=== PATIENT | female | born 1955 | race American Indian/Alaskan Native ===

== ENCOUNTER 2021-03-19 10:11 | Inpatient (IN) ==
--- NOTE | 2021-03-19 11:47 | Emergency Department Note ---
SOB HPI General Chief Complaint: Shortness of Breath/Dyspnea Stated Complaint: SOB Time Seen by Provider: 03/19/21 11:22 Source: patient, EMS, RN notes reviewed and old records reviewed Mode of arrival: EMS Limitations: no limitations History of Present Illness HPI Narrative: Narrative: MD Complaint: shortness of breath Onset (ago): month(s) (8) Context: occurred during exertion Severity: moderate Consistency/Duration: intermittent Improves with: rest and upright position Worsens with: lying flat, exertion, movement and inspiration Associated symptoms: Reports fever, cough, wheezing, sputum production, orthopnea, lower extremity pain, parasthesias and palpitations; Denies chest pain, pain with inspiration, polyuria, polydipsia, carpopedal spasm, hemoptysis, diaphoresis, nausea/vomiting, syncope, abdominal pain and sense of impending doom Treatment prior to arrival: none Related Data Home Medications Medication Instructions Recorded Confirmed No Known Home Meds 03/19/21 03/19/21 Allergies Allergy/AdvReac Type Severity Reaction Status Date / Time No Known Drug Allergies Allergy Unverified 03/19/21 15:58 Review of Systems ROS ROS Narrative: Narrative: All systems ED: reviewed and negative except as stated. PFSH Narrative Patient History Narrative: Narrative: Medical/Surgical/Family History All Active Problems (Updated 03/19/21 @ 17:17 by Chapincito Hernández MD) Medical non-compliance (Acute) Essential (primary) hypertension (Acute) T2DM (type 2 diabetes mellitus) (Acute) Morbid obesity (Acute) On home oxygen therapy (Acute) Acute and chronic respiratory failure with hypoxia (Acute) CHF exacerbation (Acute) Social History Smoking Status: Never smoker Exam Narrative Narrative: Narrative: General Limitations: no limitations General appearance: Present alert, in no apparent distress and obese Head Head: Present atraumatic, normocephalic and normal inspection Eye Eye: Present normal appearance and PERRL ENT ENT: Present normal exam and normal oropharynx Neck Neck: Present normal inspection and full ROM Chest Chest: Present normal inspection and symmetric chest wall rise Respiratory Respiratory: Present wheezes and decreased breath sounds; Absent respiratory distress Cardiovascular Cardiovascular: Present regular rate and normal rhythm; Absent systolic murmur, rubs and gallop Adbominal Abdominal: Present soft Extremities Extremities: Present full ROM, tenderness, pedal edema, pretibial edema, joint swelling and calf tenderness; Absent normal inspection and normal capillary refill Back Back: Present normal inspection, full ROM and tenderness Neurological Neurological: Present alert and oriented X3 Psychiatric Psychiatric: Present normal affect and depressed Skin Skin: Present cyanosis, erythema and pallor Course Vital Signs Vital signs: Vital Signs Temperature 97.0 F 03/19/21 10:22 Pulse Rate 96 H 03/19/21 10:22 Respiratory Rate 18 03/19/21 10:22 Blood Pressure 143/74 03/19/21 10:22 Pulse Oximetry (%) 95 03/19/21 10:22 Temperature 97.0 F 03/19/21 10:22 Pulse Rate 102 H 03/19/21 16:46 Respiratory Rate 29 H 03/19/21 16:15 Blood Pressure 115/66 03/19/21 16:46 Pulse Oximetry (%) 92 03/19/21 16:46 MDM MDM Narrative Medical decision making narrative: Narrative: 65-year-old female with congestive heart failure on chest x-ray and BNP. Patient received IV Lasix. And is improving but I believe will require more Lasix therapy to get her to optimal pulmonary and cardiac capacity requested and admission with the hospitalist who graciously agreed to an observation admission diagnosis congestive heart failure. Differential Diagnosis Differential Diagnosis: CHF, PTX, pneumonia, ACS, PE Medical Records Medical records reviewed: Yes I reviewed the patient's medical records. Lab Data Lab results reviewed: Yes I reviewed the patient's lab results. Result diagrams: 03/19/21 12:20 03/19/21 12:20 Labs: Lab Results 03/19/21 03/19/21 03/19/21 Range/Units 12:20 12:20 12:20 WBC 11.8 H (4.5-11.0) K/mcL RBC 4.35 (3.59-5.38) M/mcL Hgb 12.0 (11.2-15.7) g/dL Hct 42.8 (34.1-44.9) % MCV 98.4 (80.0-100.0) fL MCH 27.6 (26.0-34.0) pg MCHC 28.0 L (31.0-36.0) g/dL RDW 18.2 H (11.5-14.5) % Plt Count 251 (140-440) K/mcL MPV 9.9 (7.4-10.4) fL Neut % (Auto) 84.8 H (38.0-78.0) % Lymph % (Auto) 7.6 L (15.5-49.0) % [place] % (Auto) 6.9 (1.0-12.0) % Eos % (Auto) 0.3 (0.0-7.0) % Baso % (Auto) 0.4 (0.0-2.0) % Lymph # (Auto) 0.90 L (1.50-4.80) K/mcL [place] # (Auto) 0.82 (0.10-0.90) K/mcL Eos # (Auto) 0.03 (0.00-0.70) K/mcL Baso # (Auto) 0.05 (0.00-0.30) K/mcL Absolute Neutrophils 10.01 H (1.80-8.00) K/mcL D-Dimer > 20.0 H (0.27-0.5) ug/mL VBG Lactic Acid (0.5-2.0) mmol/L Sodium TNP Potassium TNP Chloride TNP Carbon Dioxide TNP Anion Gap TNP BUN TNP Creatinine TNP GFR Calculation TNP Glucose TNP Calcium TNP Total Bilirubin TNP AST TNP ALT TNP Alkaline Phosphatase TNP Troponin T (<0.03) ng/mL NT-Pro-B Natriuret Pep (<125.0) pg/mL Total Protein TNP Albumin TNP Globulin TNP Albumin/Globulin Ratio TNP Urine Color Urine Appearance (Clear) Urine pH (5.0-9.0) Ur Specific [place] (1.000-1.035) Urine Protein (Negative) mg/dL Urine Glucose (UA) (Negative) mg/dL Urine Ketones (Negative) mg/dL Urine Occult Blood (Negative) mg/dL Urine Nitrate (Negative) Urine Bilirubin (Negative) mg/dL Urine Urobilinogen mg/dL Ur Leukocyte Esterase (Negative) /ug Ur Culture Indicated? 03/19/21 03/19/21 03/19/21 Range/Units 12:20 12:20 12:20 WBC (4.5-11.0) K/mcL RBC (3.59-5.38) M/mcL Hgb (11.2-15.7) g/dL Hct (34.1-44.9) % MCV (80.0-100.0) fL MCH (26.0-34.0) pg MCHC (31.0-36.0) g/dL RDW (11.5-14.5) % Plt Count (140-440) K/mcL MPV (7.4-10.4) fL Neut % (Auto) (38.0-78.0) % Lymph % (Auto) (15.5-49.0) % [place] % (Auto) (1.0-12.0) % Eos % (Auto) (0.0-7.0) % Baso % (Auto) (0.0-2.0) % Lymph # (Auto) (1.50-4.80) K/mcL [place] # (Auto) (0.10-0.90) K/mcL Eos # (Auto) (0.00-0.70) K/mcL Baso # (Auto) (0.00-0.30) K/mcL Absolute Neutrophils (1.80-8.00) K/mcL D-Dimer (0.27-0.5) ug/mL VBG Lactic Acid 1.0 (0.5-2.0) mmol/L Sodium 140 Potassium 4.0 Chloride 96 Carbon Dioxide 33 H Anion Gap 11.0 BUN 11 Creatinine 0.6 GFR Calculation 95 Glucose 112 H Calcium 9.2 Total Bilirubin 1.2 H AST 18 ALT 11 Alkaline Phosphatase 98 Troponin T 0.02 (<0.03) ng/mL NT-Pro-B Natriuret Pep 1468.0 H (<125.0) pg/mL Total Protein 8.3 Albumin 3.2 Globulin 5.1 H Albumin/Globulin Ratio 0.6 L Urine Color Urine Appearance (Clear) Urine pH (5.0-9.0) Ur Specific [place] (1.000-1.035) Urine Protein (Negative) mg/dL Urine Glucose (UA) (Negative) mg/dL Urine Ketones (Negative) mg/dL Urine Occult Blood (Negative) mg/dL Urine Nitrate (Negative) Urine Bilirubin (Negative) mg/dL Urine Urobilinogen mg/dL Ur Leukocyte Esterase (Negative) /ug Ur Culture Indicated? 03/19/21 Range/Units 13:53 WBC (4.5-11.0) K/mcL RBC (3.59-5.38) M/mcL Hgb (11.2-15.7) g/dL Hct (34.1-44.9) % MCV (80.0-100.0) fL MCH (26.0-34.0) pg MCHC (31.0-36.0) g/dL RDW (11.5-14.5) % Plt Count (140-440) K/mcL MPV (7.4-10.4) fL Neut % (Auto) (38.0-78.0) % Lymph % (Auto) (15.5-49.0) % [place] % (Auto) (1.0-12.0) % Eos % (Auto) (0.0-7.0) % Baso % (Auto) (0.0-2.0) % Lymph # (Auto) (1.50-4.80) K/mcL [place] # (Auto) (0.10-0.90) K/mcL Eos # (Auto) (0.00-0.70) K/mcL Baso # (Auto) (0.00-0.30) K/mcL Absolute Neutrophils (1.80-8.00) K/mcL D-Dimer (0.27-0.5) ug/mL VBG Lactic Acid (0.5-2.0) mmol/L Sodium Potassium Chloride Carbon Dioxide Anion Gap BUN Creatinine GFR Calculation Glucose Calcium Total Bilirubin AST ALT Alkaline Phosphatase Troponin T (<0.03) ng/mL NT-Pro-B Natriuret Pep (<125.0) pg/mL Total Protein Albumin Globulin Albumin/Globulin Ratio Urine Color Kristine Urine Appearance Clear (Clear) Urine pH 6.0 (5.0-9.0) Ur Specific [place] 1.017 (1.000-1.035) Urine Protein Negative (Negative) mg/dL Urine Glucose (UA) Negative (Negative) mg/dL Urine Ketones 5 A (Negative) mg/dL Urine Occult Blood Negative (Negative) mg/dL Urine Nitrate Negative (Negative) Urine Bilirubin Negative (Negative) mg/dL Urine Urobilinogen 4.0 A mg/dL Ur Leukocyte Esterase Negative (Negative) /ug Ur Culture Indicated? No ED POC Tests ED POC Tests: SABAS - SARS Antigen Negative Radiology Data Radiology results reviewed: Yes I reviewed the patient's radiology results. Radiology results narrative: Congestive heart failure on chest x-ray EKG Data EKG #1: EKG attestation: Yes I reviewed and interpreted this EKG. EKG shows normal: sinus rhythm Rate: tachycardia (106) Rhythm: PVC's Glide/QRS: right axis deviation Interpretation: nonspecific ST-T wave changes Pulse Oximetry Data Pulse Ox %: 88 Interpretation: 80% is low on room Discharge Plan Patient/Caregiver Discharge Instructions Pt seen by FLY WORKER/PA only: No Clinical Impression: CHF exacerbation Qualifiers: Heart failure type: unspecified Qualified Code(s): I50.9 - Heart failure, unsp ecified Patient Disposition: Xfer As Inpt ([facility])
--- NOTE | 2021-03-19 11:47 | XRay Report ---
CLINICAL INFORMATION: shortness of breath x3 months COMPARISON: None. FINDINGS: The heart is markedly enlarged. There is mild mediastinal widening and pulmonary vessels are moderately distended with moderate peribronchovascular edema throughout both lungs. It is most prominent in the perihilar regions. No definite infiltrate. Small bilateral pleural effusions noted. IMPRESSION: Severe CHF Interpreted and Authenticated by: Rishi Lane 03/19/21
[2021-03-19] MEDS ORDERED: FUROSEMIDE 100 MG/10 ML VIAL IV ONE (12:54)
--- NOTE | 2021-03-19 13:09 | EKG ---
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 Measurements Intervals [place] Rate: 106 P: 53 WI: 180 QRS: 259 QRSD: 68 T: 66 QT: 328 QTc: 436 Interpretive Statements SINUS TACHYCARDIA VENTRICULAR PREMATURE COMPLEX POSSIBLE INFERIOR INFARCT, OLD CONSIDER ANTEROSEPTAL INFARCT Electronically Signed On 03-19-2021 13:09:50 PDT by Rishi Nunez M.D. /[email or web address]/[email or web address]/[id number]
[2021-03-19 13:10] LABS: Basophils # (Auto) 0.05 K/mcL (0.00-0.30); Basophils % (Auto) 0.4 % (0.0-2.0); Eosinophils # (Auto) 0.03 K/mcL (0.00-0.70); Eosinophils % (Auto) 0.3 % (0.0-7.0); Hematocrit 42.8 % (34.1-44.9); Lymphocytes % (Auto) 7.6 % (15.5-49.0); Mean Cell Volume 98.4 fL (80.0-100.0); Mean Platelet Volume 9.9 fL (7.4-10.4); Monocytes # (Auto) 0.82 K/mcL (0.10-0.90); Monocytes % (Auto) 6.9 % (1.0-12.0); Neutrophils % (Auto) 84.8 % (38.0-78.0); Platelet Count 251 K/mcL (140-440); RBC 4.35 M/mcL (3.59-5.38); Red Cell Distribution Width 18.2 % (11.5-14.5); WBC 11.8 K/mcL (4.5-11.0)
[2021-03-19 13:33] LABS: ALT/SGPT 11 U/L (<40); AST/SGOT 18 U/L (<32); Albumin 3.2 gm/dL (3.2-5.2); Albumin/Globulin Ratio 0.6 (1.0-2.3); Alkaline Phosphatase 98 U/L (39-117); Bilirubin,Total 1.2 mg/dL (0.1-1.0); Blood Urea Nitrogen 11 mg/dL (8-23); Calcium 9.2 mg/dL (8.6-10.4); Carbon Dioxide 33 mmol/L (22-30); Chloride 96 mmol/L (96-108); Globulin 5.1 gm/dL (2.2-3.7); Glomerular Filtration Rate 95; Glucose 112 mg/dL (70-105)
[2021-03-19 14:33] LABS: Appearance,Urine CLEAR (Clear); Bilirubin,Urine Negative (Negative); Color,Urine AMBER; Culture Indicated,Urine No; Glucose,Urine (UA) Negative (Negative); Ketones,Urine 5 mg/dL (Negative); Leukocyte Esterase,Urine Negative /ug (Negative); Nitrate,Urine Negative (Negative); Protein,Urine Negative (Negative); Specific Gravity,Urine 1.017 (1.000-1.035); Urine Blood Negative (Negative)
--- NOTE | 2021-03-19 16:16 | Internal Med History&Physical ---
HPI History of Present Illness Patient information: Note initiated : 03/19/21 at 4:09 pm Service Date, if different from initiated Date: [] Patient: Sheila Hernández 65 y/o F admitted on for Shortness of breath. Chief Complaint: [CHF exacerbation] History of present illness: Ms. Hernández is a 65 year old F medically noncompliant, CHF, type 2 diabetes, essential hypertension's, presenting with acute on chronic general body weakness and dyspnea. She is having symptoms of general body weakness and dyspnea for at least a year but then it gets significantly worse since yesterday. She is complaining of orthopnea to the point that she cannot lay flat and she have to sleep on the chair. She is also committing of chronic bilateral leg swelling. She is not sure if she have any unintentional weight gain as she does not with herself. She denies any cough or sputum productions or wheezing. She denies any fever or chills or diaphoresis. She denies any change in her appetite. She is chronically bedbound. She denies any chest pain or palpitations or chest pressure. She uses oxygen at home 4 to 5 L/min baseline. Vital signs at ED presentation significant for tachycardia and tachypnea with heart rate and rate of breathing up to 120s and 30s beats per minute and breath per minute, respectively. Oxygen saturations in the mid 90s on 4 to 5 L of supplemental oxygen's. Labs significant for leukocytosis with WBC 11.8. Elevated serum BNP 1500 with unknown baseline. Serum troponin not elevated at 0.02. Initial Covid Celi negative, confirmatory Covid PCR test pending. Chest x-ray showing evidence of severe CHF with cardiomegaly and b ilateral pleural edema. Constitutional Constitutional: Present fatigue and weakness; Absent chills, excessive sweating and fever(s) EENT Eyes: Absent blurry vision, change in vision, loss of vision and other visual d isturbances Ears: Absent decreased hearing and tinnitus Nose, mouth and throat: Absent abnormal hearing, dry mouth, headache(s), nasal congestion and sore throat Cardiovascular Cardiovascular: Absent chest pain, chest pain at rest, edema, irregular heart rhythm and palpatations Respiratory Respiratory: Present dyspnea; Absent cough and wheezing Additional comments: orthopnea Gastrointestinal Gastrointestinal: Absent abdominal pain, constipation, diarrhea, nausea and vomiting Musculoskeletal Musculoskeletal: Absent back pain, deformity, limited range of motion, muscle cramps, muscle weakness and numbness Additional comments: bilateral legs sewlling Integumentary Integumentary: Absent lesions, rash and wounds Neurological Neurological: Absent focal weakness, headache(s) and numbness Psychiatric Psychiatric: Absent anxiety, depression and hallucinations PFSH PFSH All Active Problems (Updated 03/19/21 @ 16:22 by Marty Marina MD) Medical non-compliance (Acute) Essential (primary) hypertension (Acute) T2DM (type 2 diabetes mellitus) (Acute) Morbid obesity (Acute) On home oxygen therapy (Acute) Acute and chronic respiratory failure with hypoxia (Acute) CHF exacerbation (Acute) MEDS/ALLERGIES Home Medications and Allergies Home Medications Medication Instructions Recorded Confirmed Type No Known Home Meds 03/19/21 03/19/21 History Allergies Allergy/AdvReac Type Severity Reaction Status Date / Time No Known Drug Allergies Allergy Unverified 03/19/21 15:58 EXAM Constitutional Vitals: Temp Pulse Resp BP Pulse Ox 36.1 C 124 H 28 H 123/83 91 03/19/21 10:22 03/19/21 16:00 03/19/21 16:00 03/19/21 16:00 03/19/21 16:00 General appearance: cooperative, mild distress and morbidly obese Head Head exam: Present atraumatic and normocephalic Eye Eye exam: Present EOMI and PERRL ENT ENT exam: Present mucous membranes moist, normal exam and normal external ear exam Additional comments: Oxygen mask in place Neck Neck exam: Present normal inspection; Absent lymphadenopathy, tenderness and thyromegaly Respiratory Respiratory exam: Present decreased breath sounds; Absent accessory muscle use, respiratory distress and wheezes Cardiovascular Cardiovascular exam: Present normal rate and rhythm; Absent JVD GI/Abdominal GI/Abdominal exam: Present normal bowel sounds and soft; Absent organomegaly and tenderness Additional comments: Burton catheter in place Extremities Exam Extremities exam: Present full ROM, normal capillary refill, normal inspection and pedal edema; Absent tenderness Neurological Exam Neurological exam: Present alert, CN II-XII intact and oriented X3; Absent motor sensory deficit Psychiatric Psychiatric exam: Present normal affect and normal mood; Absent anxious and depressed Skin Skin exam: Present dry, erythema, intact and rash Additional comments: Bilateral groin erythematic rash DATA Data Completed and Pending Labs: Labs from last 24 hours 03/19/21 03/19/21 03/19/21 13:53 12:20 12:20 WBC RBC Hgb Hct MCV MCH MCHC RDW Plt Count MPV Neut % (Auto) Lymph % (Auto) [place] % (Auto) Eos % (Auto) Baso % (Auto) Lymph # (Auto) [place] # (Auto) Eos # (Auto) Baso # (Auto) Absolute Neutrophils D-Dimer VBG Lactic Acid 1.0 Sodium Potassium Chloride Carbon Dioxide Anion Gap BUN Creatinine GFR Calculation Glucose Calcium Total Bilirubin AST ALT Alkaline Phosphatase Troponin T 0.02 NT-Pro-B Natriuret Pep Total Protein Albumin Globulin Albumin/Globulin Ratio Urine Color Kristine Urine Appearance Clear Urine pH 6.0 Ur Specific [place] 1.017 Urine Protein Negative Urine Glucose (UA) Negative Urine Ketones 5 A Urine Occult Blood Negative Urine Nitrate Negative Urine Bilirubin Negative Urine Urobilinogen 4.0 A Ur Leukocyte Esterase Negative Ur Culture Indicated? No 03/19/21 03/19/21 03/19/21 12:20 12:20 12:20 WBC RBC Hgb Hct MCV MCH MCHC RDW Plt Count MPV Neut % (Auto) Lymph % (Auto) [place] % (Auto) Eos % (Auto) Baso % (Auto) Lymph # (Auto) [place] # (Auto) Eos # (Auto) Baso # (Auto) Absolute Neutrophils D-Dimer > 20.0 H VBG Lactic Acid Sodium 140 TNP Potassium 4.0 TNP Chloride 96 TNP Carbon Dioxide 33 H TNP Anion Gap 11.0 TNP BUN 11 TNP Creatinine 0.6 TNP GFR Calculation 95 TNP Glucose 112 H TNP Calcium 9.2 TNP Total Bilirubin 1.2 H TNP AST 18 TNP ALT 11 TNP Alkaline Phosphatase 98 TNP Troponin T NT-Pro-B Natriuret Pep 1468.0 H Total Protein 8.3 TNP Albumin 3.2 TNP Globulin 5.1 H TNP Albumin/Globulin Ratio 0.6 L TNP Urine Color Urine Appearance Urine pH Ur Specific [place] Urine Protein Urine Glucose (UA) Urine Ketones Urine Occult Blood Urine Nitrate Urine Bilirubin Urine Urobilinogen Ur Leukocyte Esterase Ur Culture Indicated? 03/19/21 12:20 WBC 11.8 H RBC 4.35 Hgb 12.0 Hct 42.8 MCV 98.4 MCH 27.6 MCHC 28.0 L RDW 18.2 H Plt Count 251 MPV 9.9 Neut % (Auto) 84.8 H Lymph % (Auto) 7.6 L [place] % (Auto) 6.9 Eos % (Auto) 0.3 Baso % (Auto) 0.4 Lymph # (Auto) 0.90 L [place] # (Auto) 0.82 Eos # (Auto) 0.03 Baso # (Auto) 0.05 Absolute Neutrophils 10.01 H D-Dimer VBG Lactic Acid Sodium Potassium Chloride Carbon Dioxide Anion Gap BUN Creatinine GFR Calculation Glucose Calcium Total Bilirubin AST ALT Alkaline Phosphatase Troponin T NT-Pro-B Natriuret Pep Total Protein Albumin Globulin Albumin/Globulin Ratio Urine Color Urine Appearance Urine pH Ur Specific [place] Urine Protein Urine Glucose (UA) Urine Ketones Urine Occult Blood Urine Nitrate Urine Bilirubin Urine Urobilinogen Ur Leukocyte Esterase Ur Culture Indicated? A/P Assessment and plan (1) CHF exacerbation: Status: Acute (2) Acute and chronic respiratory failure with hypoxia: Status: Acute (3) On home oxygen therapy: Status: Acute (4) Morbid obesity: Status: Acute (5) T2DM (type 2 diabetes mellitus): Status: Acute (6) Essential (primary) hypertension: Status: Acute (7) Medical non-compliance: Status: Acute Narrative A/P Narrative: Assessment and Plans: 1. Acute on chronic respiratory failure secondary to CHF exacerbation: Admit to inpatient med surg telemetry Intake and output Daily weigh 2L/day fluid intake Supplemental oxygen therapy titrate to achieve spo2 >=92%. Home oxygen requirement 4-5L/min Lasix 40mg IV BID No beta jonathan at time of exacerbation Lisinopril 2D echocardiogram. Depending on LVEF, might add Aldactone PT OT evaluation 2. T2DM: HgA1c Hold any oral hypoglycemics Low dose SSI AC HS Accu Chek AC HS Hypoglycemia protocol Diabetic diet 3. Essential HTN: Lasix 40mg IV BID No beta jonathan at time of exacerbation Lisinopril Depending on LVEF, might add Aldactone 4. 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
[2021-03-19] MEDS ORDERED: DEXTROSE 50% 50 ML VIAL IV PRN ×2 (17:52→21:11)
[2021-03-19] MEDS ORDERED: ONDANSETRON 4 MG/2 ML VIAL IV PRN ×2 (17:52→21:11)
[2021-03-19] MEDS ORDERED: ZOLPIDEM 5 MG TABLET PO PRN ×2 (17:52→21:11)
[2021-03-19] MEDS ORDERED: guaiFENesin/DEXTROMETHORPHAN ORAL SOL PO PRN ×2 (17:52→21:11)
[2021-03-19] MEDS ORDERED: DEXTROSE 31 GM ORAL.SUSP PO PRN ×2 (17:52→21:11)
[2021-03-19] MEDS ORDERED: ACETAMINOPHEN 325 MG TABLET PO PRN (17:52)
[2021-03-19] MEDS ORDERED: METOPROLOL TARTRATE 5 MG/5 ML VIAL IV PRN ×2 (17:52→21:11)
[2021-03-19] MEDS ORDERED: IPRATROPIUM/ALBUTEROL 3 ML AMPUL.NEB NEB PRN ×2 (17:52→21:11)
[2021-03-19] MEDS: INSULIN LISPRO 1 UNIT/0.01 ML UNIT SQ SCH ×2 (18:36→23:17)
[2021-03-19] MEDS ORDERED: DOCUSATE SODIUM 100 MG CAPSULE PO SCH (21:00)
[2021-03-19] MEDS ORDERED: NYSTATIN POWDER BOTTLE 15GM TOPICAL SCH (21:00)
[2021-03-19] MEDS ORDERED: CALAMINE TOPICAL SCH (21:00)
[2021-03-19] MEDS ORDERED: ZINC OXIDE TOPICAL SCH (21:00)
[2021-03-19] MEDS ORDERED: SENNOSIDES 1 TABLET PO SCH (21:00)
[2021-03-19] MEDS ORDERED: 0.9 % SODIUM CHLORIDE 10 ML SYRINGE IV SCH (22:00)
[2021-03-19] MEDS: 0.9 % SODIUM CHLORIDE 10 ML SYRINGE IV SCH (22:44)
[2021-03-20] MEDS: 0.9 % SODIUM CHLORIDE 10 ML SYRINGE IV SCH ×3 (05:22→20:27)
[2021-03-20 06:34] LABS: Basophils # (Auto) 0.03 K/mcL (0.00-0.30); Basophils % (Auto) 0.3 % (0.0-2.0); Eosinophils # (Auto) 0.04 K/mcL (0.00-0.70); Eosinophils % (Auto) 0.4 % (0.0-7.0); Hematocrit 38.9 % (34.1-44.9); Hemoglobin 10.8 g/dL (11.2-15.7); Lymphocytes # (Auto) 1.16 K/mcL (1.50-4.80); Lymphocytes % (Auto) 11.2 % (15.5-49.0); Mean Cell Volume 100.8 fL (80.0-100.0); Mean Corpuscular HGB Conc 27.8 g/dL (31.0-36.0); Mean Platelet Volume 10.1 fL (7.4-10.4); Monocytes # (Auto) 0.59 K/mcL (0.10-0.90); Monocytes % (Auto) 5.7 % (1.0-12.0); Neutrophils % (Auto) 82.4 % (38.0-78.0); Platelet Count 218 K/mcL (140-440); RBC 3.86 M/mcL (3.59-5.38); Red Cell Distribution Width 17.8 % (11.5-14.5); WBC 10.4 K/mcL (4.5-11.0)
[2021-03-20] MEDS: ACETAMINOPHEN 325 MG TABLET PO PRN ×3 (06:47→23:02)
[2021-03-20] MEDS: INSULIN LISPRO 1 UNIT/0.01 ML UNIT SQ SCH ×4 (07:10→20:26)
[2021-03-20 07:31] LABS: ALT/SGPT 8 U/L (<40); AST/SGOT 15 U/L (<32); Albumin 2.6 gm/dL (3.2-5.2); Albumin/Globulin Ratio 0.6 (1.0-2.3); Alkaline Phosphatase 90 U/L (39-117); Bilirubin,Total 1.1 mg/dL (0.1-1.0); Blood Urea Nitrogen 13 mg/dL (8-23); Calcium 9.1 mg/dL (8.6-10.4); Carbon Dioxide 43 mmol/L (22-30); Chloride 96 mmol/L (96-108); Globulin 4.6 gm/dL (2.2-3.7); Glomerular Filtration Rate 95; Glucose 79 mg/dL (70-105)
[2021-03-20] MEDS ORDERED: FUROSEMIDE 40 MG/4 ML VIAL IV SCH (08:00)
[2021-03-20] MEDS ORDERED: ENOXAPARIN 40 MG/0.4 ML SYRINGE SQ SCH (09:00)
[2021-03-20] MEDS ORDERED: LISINOPRIL 5 MG TABLET PO SCH (09:00)
[2021-03-20] MEDS: ENOXAPARIN 40 MG/0.4 ML SYRINGE SQ SCH (09:03)
[2021-03-20] MEDS: FUROSEMIDE 40 MG/4 ML VIAL IV SCH ×2 (09:03→16:41)
--- NOTE | 2021-03-20 09:29 | Internal Med Progress Note ---
SUBJECTIVE Subjective Patient information: Note initiated : 03/20/21 at 9:23 am Service Date, if different from initiated Date: [] Patient: Sheila Hernández 65 y/o F admitted on 03/19/21 for Shortness of breath. Chief Complaint: [CHF exacerbation] Interval history: History of present illness: Ms. Hernández is a 65 year old F medically noncompliant, CHF, type 2 diabetes, essential hypertension's, presenting with acute on chronic general body weakness and dyspnea. She is having symptoms of general body weakness and dyspnea for at least a year but th en it gets significantly worse since yesterday. She is complaining of orthopnea to the point that she cannot lay flat and she have to sleep on the chair. She is also committing of chronic bilateral leg swelling. She is not sure if she have any unintentional weight gain as she does not with herself. She denies any cough or sputum productions or wheezing. She denies any fever or chills or diaphoresis. She denies any change in her appetite. She is chronically bedbound. She denies any chest pain or palpitations or chest pressure. She uses oxygen at home 4 to 5 L/min baseline. Vital signs at ED presentation significant for tachycardia and tachypnea with heart rate and rate of breathing up to 120s and 30s beats per minute and breath per minute, respectively. Oxygen saturations in the mid 90s on 4 to 5 L of supplemental oxygen's. Labs significant for leukocytosis with WBC 11.8. Elevated serum BNP 1500 with unknown baseline. Serum troponin not elevated at 0.02. Initial Covid Celi negative, confirmatory Covid PCR test pending. Chest x-ray showing evidence of severe CHF with cardiomegaly and bilateral pleural edema. 03/20: Been placed on BiPAP overnight. Now this morning she's on 5L/min oxygen via nasal cannula. Afebrile. Mental status much improved. Denies SOB. Denies cough or sputum production. Denies wheezing. Denies general body weakness. PT OT: SNF placement. Constitutional Vitals: Vital Signs Temp Pulse Resp BP Pulse Ox 36.7 C 97 H 22 106/51 94 03/20/21 08:01 03/20/21 09:19 03/20/21 09:19 03/20/21 08:54 03/20/21 09:19 Period Temp Pulse Resp BP Sys/Lou Pulse Ox Last 24 Hr 35.7 C-36.7 C 70-127 14-33 91-159/51-116 88-98 Intake and Output 03/19/21 03/20/21 03/20/21 21:59 05:59 13:59 Intake Total 0 120 Output Total 1800 775 180 Balance -179977 -60 Weight 156.263 kg Intake & Output: Intake & Output 03/19/21 03/20/21 03/20/21 21:59 05:59 13:59 Intake Total 0 120 Output Total 1800 775 180 Balance -1800 775 -60 Weight 156.263 kg Intake: Oral 0 120 Output: Urine Catheter Amount 1800 775 180 Other: Meal Breakfast Percent of Meal Consumed 100% Feeding Ability Independent Urine Appearance Clear Clear Clear Uretheral (Burton) Clear Urine Color Pale Bright Yellow Dark Kristine Uretheral (Burton) Dark Yellow Dark Kristine Urine Odor Normal Uretheral (Burton) Normal General appearance: cooperative, disheveled, morbidly obese and no acute distress Head Head exam: Present atraumatic and normocephalic Eye Eye exam: Present EOMI and PERRL ENT ENT exam: Present mucous membranes moist, normal exam and normal external ear exam Additional comments: Nasal cannula in place Neck Neck exam: Present normal inspection; Absent lymphadenopathy, tenderness and thyromegaly Respiratory Respiratory exam: Present decreased breath sounds; Absent accessory muscle use, respiratory distress and wheezes Cardiovascular Cardiovascular exam: Present normal rate and rhythm; Absent JVD GI/Abdominal GI/Abdominal exam: Present normal bowel sounds and soft; Absent organomegaly and tenderness Additional comments: Burton catheter in place Extremities Exam Extremities exam: Present full ROM, normal capillary refill, normal inspection and pedal edema; Absent tenderness Neurological Exam Neurological exam: Present alert, CN II-XII intact and oriented X3; Absent motor sensory deficit Psychiatric Psychiatric exam: Present normal affect and normal mood; Absent anxious and depressed Skin Skin exam: Present dry, erythema, intact and rash (abdominal skin fold and bilateral groins) OBJ DATA Labs CBC & Chem 7: 03/20/21 05:03 03/20/21 05:03 Labs: Abnormal Lab Results 03/20/21 03/20/21 03/19/21 05:03 05:03 13:53 WBC Hgb 10.8 L MCV 100.8 H MCHC 27.8 L RDW 17.8 H Neut % (Auto) 82.4 H Lymph % (Auto) 11.2 L Lymph # (Auto) 1.16 L Absolute Neutrophils 8.53 H D-Dimer Carbon Dioxide 43 H* Anion Gap 4.0 L Glucose Total Bilirubin 1.1 H NT-Pro-B Natriuret Pep Albumin 2.6 L Globulin 4.6 H Albumin/Globulin Ratio 0.6 L Urine Ketones 5 A Urine Urobilinogen 4.0 A 03/19/21 03/19/21 03/19/21 12:20 12:20 12:20 WBC 11.8 H Hgb MCV MCHC 28.0 L RDW 18.2 H Neut % (Auto) 84.8 H Lymph % (Auto) 7.6 L Lymph # (Auto) 0.90 L Absolute Neutrophils 10.01 H D-Dimer > 20.0 H Carbon Dioxide 33 H Anion Gap Glucose 112 H Total Bilirubin 1.2 H NT-Pro-B Natriuret Pep 1468.0 H Albumin Globulin 5.1 H Albumin/Globulin Ratio 0.6 L Urine Ketones Urine Urobilinogen Meds: Medications Acetaminophen (Acetaminophen 325 Mg Tablet) 650 mg PO Q6HP PRN; Protocol PRN Reason: Per Pain Protocol/Fever > 101 Last Admin: 03/20/21 06:47 Dose: 650 mg Documented by: Albuterol/Ipratropium (Ipratropium/Albuterol 3 Ml Ampul.Neb) 3 ml NEB Q4HRT PRN PRN Reason: Wheezing Calamine (Calamine/Zinc Oxide 1 Dose Lotion) 1 dose TOPICAL BID K[facility] Dextrose (Dextrose 50% 50 Ml Vial) 0 ml IV UD PRN PRN Reason: Hypoglycemia Diagnostic Test (Pha) (Accu-Chek 1 Each Strip) 1 each FS A[facility]S [facility] Last Admin: 03/20/21 07:09 Dose: 1 each Documented by: Docusate Sodium (Docusate Sodium 100 Mg Capsule) 100 mg PO BID [facility] Enoxaparin Sodium (Enoxaparin 40 Mg/0.4 Ml Syringe) 40 mg SQ DAILY [facility] Last Admin: 03/20/21 09:03 Dose: 40 mg Documented by: Furosemide (Furosemide 40 Mg/4 Ml Vial) 40 mg IV BIDD [facility] Last Admin: 03/20/21 09:03 Dose: 40 mg Documented by: Glucose (Dextrose 31 Gm Oral.Susp) 15 gm PO PRN PRN PRN Reason: Hypoglycemia Guaifenesin (Guaifenesin/Dextromethorphan Oral Emelyn) 10 ml PO Q4HP PRN PRN Reason: Cough Insulin Human Lispro (Insulin Lispro 1 Unit/0.01 Ml Unit) 0 unit SQ A[facility]S [facility]; Protocol Last Admin: 03/20/21 07:10 Dose: Not Given Documented by: Lisinopril (Lisinopril 5 Mg Tablet) 5 mg PO DAILY K[facility] Metoprolol Tartrate (Metoprolol Tartrate 5 Mg/5 Ml Vial) 5 mg IV Q5M PRN PRN Reason: Tachyarrhythmias Nystatin (Nystatin Powder Bottle 15gm) 1 dose TOPICAL BID [facility] Ondansetron HCl (Ondansetron 4 Mg/2 Ml Vial) 4 mg IV Q6HP PRN PRN Reason: Nausea And Vomiting Senna (Sennosides 1 Tablet) 2 tab PO HS [facility] Sodium Chloride (0.9 % Sodium Chloride 10 Ml Syringe) 10 ml IV Q8 [facility] Last Admin: 03/20/21 05:22 Dose: 10 ml Documented by: Zolpidem Tartrate (Zolpidem 5 Mg Tablet) 5 mg PO HSP PRN PRN Reason: Insomnia A/P Assessment and plan (1) CHF exacerbation: Status: Acute Qualifiers: Heart failure type: unspecified Qualified Code(s): I50.9 - Heart failure, unspecified (2) Acute and chronic respiratory failure with hypoxia: Status: Acute (3) On home oxygen therapy: Status: Acute (4) Morbid obesity: Status: Acute (5) T2DM (type 2 diabetes mellitus): Status: Acute (6) Essential (primary) hypertension: Status: Acute (7) Medical non-compliance: Status: Acute (8) JO (obstructive sleep apnea): Status: Acute (9) Intertrigo: Status: Acute Narrative A/P Narrative: Assessment and Plans: 1. Acute on chronic respiratory failure secondary to CHF exacerbation: Stays in inpatient med surg telemetry Intake and output Daily weigh 2L/day fluid intake Supplemental oxygen therapy titrate to achieve spo2 >=92%. Home oxygen requirement 4-5L/min Lasix 40mg IV BID No beta jonathan at time of exacerbation Lisinopril 2D echocardiogram. Depending on LVEF, might add Aldactone PT OT evaluation for SNF placement 2. T2DM: HgA1c Hold any oral hypoglycemics Low dose SSI AC HS Accu Chek AC HS Hypoglycemia protocol Diabetic diet 3. Essential HTN: Lasix 40mg IV BID No beta jonathan at time of exacerbation Lisinopril Depending on LVEF, might add Aldactone 4. 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 JO: CPAP at night Need outpatient sleep study for candidacy for CPAP 6. Intertrigo: Zinc oxide tropical BID Nystatin topical BID Keep Burton catheter on for the skin to heal GI ppx: not currently indicated DVT ppx: Lovenox Code status: Full Prognosis: guarded Disposition: inpatient med surg telemetry; PT OT for SNF placement Time Spent With Patient Time: Total time spent is greater than 50% in coordination of care (as documented) at patient's floor/unit and/or counseling patient: QUALITY Stroke Symptom Onset Unknown: No VTE Deep Vein Thrombosis/Pulmonary Embolism Present on Admission: No
[2021-03-20] MEDS: DOCUSATE SODIUM 100 MG CAPSULE PO SCH ×2 (10:05→20:21)
[2021-03-20] MEDS: NYSTATIN POWDER BOTTLE 15GM TOPICAL SCH ×2 (11:52→20:28)
[2021-03-20] MEDS: ZINC OXIDE TOPICAL SCH ×2 (12:48→20:20)
[2021-03-20] MEDS: CALAMINE TOPICAL SCH ×2 (12:48→20:20)
[2021-03-20] MEDS: LISINOPRIL 5 MG TABLET PO SCH (13:50)
[2021-03-20] MEDS: SENNOSIDES 1 TABLET PO SCH (20:21)
[2021-03-21] MEDS: 0.9 % SODIUM CHLORIDE 10 ML SYRINGE IV SCH ×3 (05:23→21:03)
[2021-03-21] MEDS: ACETAMINOPHEN 325 MG TABLET PO PRN ×2 (05:55→18:41)
[2021-03-21 06:43] LABS: Basophils # (Auto) 0.04 K/mcL (0.00-0.30); Basophils % (Auto) 0.4 % (0.0-2.0); Eosinophils # (Auto) 0.14 K/mcL (0.00-0.70); Eosinophils % (Auto) 1.6 % (0.0-7.0); Hematocrit 37.9 % (34.1-44.9); Hemoglobin 10.3 g/dL (11.2-15.7); Lymphocytes # (Auto) 0.99 K/mcL (1.50-4.80); Mean Cell Volume 101.1 fL (80.0-100.0); Mean Corpuscular HGB Conc 27.2 g/dL (31.0-36.0); Mean Platelet Volume 10.1 fL (7.4-10.4); Monocytes # (Auto) 0.66 K/mcL (0.10-0.90); Monocytes % (Auto) 7.3 % (1.0-12.0); Neutrophils % (Auto) 79.7 % (38.0-78.0); Platelet Count 232 K/mcL (140-440); RBC 3.75 M/mcL (3.59-5.38); Red Cell Distribution Width 17.3 % (11.5-14.5)
--- NOTE | 2021-03-21 07:58 | General Surgery Consult Note ---
HPI Data of Consult Consult date: 03/21/21 Requesting physician: Marty Marina Consult Narrative Chief complaint: Exacerbation CHF, Respiratory Failure, DM2 in Supermorbid Obese lady Reason for consult: Evaluation of skin lesions groins, sacral / perineal region History of present illness: This is a super morbid obese female with multiple medical problems. Admitted via ER with acute SOB and Orthopnea. She is responding to aggressive medical management and stabilizing. 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 I saw this patient with Paresh Verduzco RN and floor nurses in room 118, ICU / Step down. Patient on BiPAP cc:: CC: Marty Marina MD Review of Systems All systems: reviewed and no additional remarkable complaints except as stated (SKIN related concerns. CHRONIC contact and moisture associated dermatitis under overhanging panniculus and perineal, sacral and coccygeal regions.) PFSH PFSH All Active Problems Intertrigo (Acute) JO (obstructive sleep apnea) (Acute) Medical non-compliance (Acute) Essential (primary) hypertension (Acute) T2DM (type 2 diabetes mellitus) (Acute) Morbid obesity (Acute) On home oxygen therapy (Acute) Acute and chronic respiratory failure with hypoxia (Acute) CHF exacerbation (Acute) MEDS/ALLERGIES Home Medications and Allergies Home Medications Medication Instructions Recorded Confirmed Type No Known Home Meds 03/19/21 03/19/21 History Allergies Allergy/AdvReac Type Severity Reaction Status Date / Time No Known Drug Allergies Allergy Unverified 03/19/21 15:58 Physical Examination Vital Signs Vital signs: Temp Pulse Resp BP Pulse Ox 97.2 F 73 23 H 100/59 97 03/21/21 03:30 03/21/21 06:46 03/21/21 06:46 03/21/21 06:01 03/21/21 06:46 General physical appearance General physical exam: moderate distress, chronically ill and obese (Supermorbid obese female. Able to turn over in bed with help of CG. Alert and interactive. Supplemental O2 with BiPAP mask.) Eyes Eye exam: PERRL and normal ocular movement ENT ENT exam: normal pinna, normal mucosa, no congestion and other (NO nasal discharge, Clean ears, ) Head Head exam IM: Present atraumatic and normocephalic Neck Neck exam: no masses and no venous distension Cardiovascular Cardiovascular exam IM: Present normal rate and rhythm Cardiovascular: Edema of both LE. Non palpable pedal pulses. Toes PWD. Respiratory Respiratory exam: other (SOB with exertion, NO secretions, Able to talk in short sentences. Clear speech. Coherent) Respiratory exam: absent breath sounds: bilateral (Diminished air entry bases, lower back) Abdomen Abdomen: Present soft (OVERHANGING panniculus with chronic regional dermatitis, pigmentation and moist desquamation of epidermis. NO foul odor, NO bleeding, NO crepitation), non tender and bowel sounds Genitourinary Genitourinary (Female): Present normal external genitalia and other (Burton catheter to remain in situ. Draining clear urine. ) Rectum Rectum: Present other (NO evidence of fecal or urine odor or contamination of genitalia and perineal region.) Integumentary Integumentary: Present other (Chronic / contamination with moisture associated dermatits. NO evidence of breaks, blisters or ulcers. NO draiange. ) Neurologic Neurologic: Present other (NON focal. Moves all extremities.) Musculoskeletal Musculoskeletal: Present other (Bed confined. symmetry of extremities and face. ) Psychiatric Psychiatric: Present oriented to place and speech is normal Results Labs Result diagrams: 03/21/21 05:11 03/20/21 05:03 Labs: Abnormal lab results 03/21/21 Range/Units 05:11 Hgb 10.3 L (11.2-15.7) g/dL MCV 101.1 H (80.0-100.0) fL MCHC 27.2 L (31.0-36.0) g/dL RDW 17.3 H (11.5-14.5) % Neut % (Auto) 79.7 H (38.0-78.0) % Lymph % (Auto) 11.0 L (15.5-49.0) % Lymph # (Auto) 0.99 L (1.50-4.80) K/mcL All other labs normal. A/P Narrative A/P Narrative: Assessment: Acute exacerbation of SOB with Orthopnea. IMPROVING. Tachycardia resolved. Mental status appropriate. NO neuro deficits. Reviewed lab results and medications. Chronic Dermatitis, around genitalia, sacral, coccygeal regions, and under overhanging panniculus Plan: Agree with current medical management SKIN care discussed with nursing staff. CLEAN with wet wash cloth soaked in HIBICLENS solution. Dwell time 3-5 minutes, Dry with a hand towel. Apply antifungal creme or DESITIN under skin folds USE intercede sheets under skin folds of groins . May wash or change q 3 days. Use ANTIFUNGAL powder ( ? Miconazole ) on chux or bedsheets under her back and sacral regions . Change daily. Patient needs placement in a rehab facility. Time Spent With Patient Time: Total time spent is greater than 50% in coordination of care (as documented) at patient's floor/unit and/or counseling patient: Total time spent with greater than 50% in coordination of care (as documented) at patient's floor/unit and/or counseling patient:: Greater than 35 minutes
[2021-03-21] MEDS: INSULIN LISPRO 1 UNIT/0.01 ML UNIT SQ SCH ×4 (08:06→21:03)
[2021-03-21] MEDS: CALAMINE TOPICAL SCH ×2 (08:07→20:57)
[2021-03-21] MEDS: DOCUSATE SODIUM 100 MG CAPSULE PO SCH ×2 (08:07→21:02)
[2021-03-21] MEDS: ZINC OXIDE TOPICAL SCH ×2 (08:07→20:57)
[2021-03-21] MEDS: LISINOPRIL 5 MG TABLET PO SCH (08:07)
[2021-03-21] MEDS: FUROSEMIDE 40 MG/4 ML VIAL IV SCH ×2 (08:12→15:49)
[2021-03-21] MEDS: ENOXAPARIN 40 MG/0.4 ML SYRINGE SQ SCH (08:12)
[2021-03-21 08:15] LABS: ALT/SGPT 8 U/L (<40); AST/SGOT 14 U/L (<32); Albumin 2.5 gm/dL (3.2-5.2); Albumin/Globulin Ratio 0.6 (1.0-2.3); Alkaline Phosphatase 80 U/L (39-117); Bilirubin,Total 0.8 mg/dL (0.1-1.0); Blood Urea Nitrogen 18 mg/dL (8-23); Calcium 8.5 mg/dL (8.6-10.4); Carbon Dioxide 43 mmol/L (22-30); Chloride 95 mmol/L (96-108); Globulin 4.4 gm/dL (2.2-3.7); Glomerular Filtration Rate 76; Glucose 91 mg/dL (70-105)
--- NOTE | 2021-03-21 10:14 | Internal Med Progress Note ---
SUBJECTIVE Subjective Patient information: Note initiated : 03/21/21 at 10:12 am Service Date, if different from initiated Date: [] Patient: Sheila Hernández a 65 y/o F admitted on 03/19/21 for Shortness of breath. Chief Complaint: [CHF exacerbation] Interval history: History of present illness: Ms. Hernández is a 65 year old F medically noncompliant, CHF, type 2 diabetes, essential hypertension's, presenting with acute on chronic general body weakness and dyspnea. She is having symptoms of general body weakness and dyspnea for at least a year but t hen it gets significantly worse since yesterday. She is complaining of orthopnea to the point that she cannot lay flat and she have to sleep on the chair. She is also committing of chronic bilateral leg swelling. She is not sure if she have any unintentional weight gain as she does not with herself. She denies any cough or sputum productions or wheezing. She denies any fever or chills or diaphoresis. She denies any change in her appetite. She is chronically bedbound. She denies any chest pain or palpitations or chest pressure. She uses oxygen at home 4 to 5 L/min baseline. Vital signs at ED presentation significant for tachycardia and tachypnea with heart rate and rate of breathing up to 120s and 30s beats per minute and breath per minute, respectively. Oxygen saturations in the mid 90s on 4 to 5 L of supplemental oxygen's. Labs significant for leukocytosis with WBC 11.8. Elevated serum BNP 1500 with unknown baseline. Serum troponin not elevated at 0.02. Initial Covid Celi negative, confirmatory Covid PCR test pending. Chest x-ray showing evidence of severe CHF with cardiomegaly and bilateral pleural edema. 03/20: Been placed on BiPAP overnight. Now this morning she's on 5L/min oxygen via nasal cannula. Afebrile. Mental status much improved. Denies SOB. Denies cough or sputum production. Denies wheezing. Denies general body weakness. PT OT: SNF placement. 03/21: Been on BiPAP overnight 12/5cm H2O with FiO2 35%. Afebrile overnight. 2D echocardiogram: LVEF 65-70%, indeterminant diastolic function. Mental status much improved. Denies SOB. Denies cough or sputum production. Denies wheezing. Denies general body weakness. c/o moderate generalized body pain. PT OT: SNF placement. Constitutional Vitals: Vital Signs Temp Pulse Resp BP Pulse Ox 36.1 C 85 26 H 108/55 96 03/21/21 08:01 03/21/21 08:01 03/21/21 08:01 03/21/21 08:01 03/21/21 08:01 Period Temp Pulse Resp BP Sys/Lou Pulse Ox Last 24 Hr 36.1 C-36.8 C 61-95 13-26 96-124/49-71 93-100 Intake and Output 03/20/21 03/21/21 03/21/21 21:59 05:59 13:59 Intake Total 640 400 236 Output Total 650 300 Balance -10 100 236 Weight 156.172 kg Intake & Output: Intake & Output 03/20/21 03/21/21 03/21/21 21:59 05:59 13:59 Intake Total 640 400 236 Output Total 650 300 Balance -10 100 236 Weight 156.172 kg Intake: Oral 640 400 236 Output: Urine Catheter Amount 650 300 Other: Meal Dinner Breakfast Percent of Meal Consumed 50% 75% Feeding Ability Independent Independent Urine Appearance Clear Clear Urine Color Dark Yellow Dark Kristine Uretheral (Burton) Dark Yellow Dark Yellow Urine Odor Normal # Bowel Movements 0 General appearance: cooperative, disheveled, morbidly obese and no acute distress Head Head exam: Present atraumatic and normocephalic Eye Eye exam: Present EOMI and PERRL ENT ENT exam: Present mucous membranes moist, normal exam and normal external ear exam Additional comments: Nasal cannula in place Neck Neck exam: Present normal inspection; Absent lymphadenopathy, tenderness and thyromegaly Respiratory Respiratory exam: Present decreased breath sounds; Absent accessory muscle use, respiratory distress and wheezes Cardiovascular Cardiovascular exam: Present normal rate and rhythm; Absent JVD GI/Abdominal GI/Abdominal exam: Present normal bowel sounds and soft; Absent organomegaly and tenderness Additional comments: obese abdomen Additional comments: Burton catheter in place Extremities Exam Extremities exam: Present full ROM, normal capillary refill and normal inspection; Absent tenderness Neurological Exam Neurological exam: Present alert, CN II-XII intact and oriented X3; Absent motor sensory deficit Psychiatric Psychiatric exam: Present normal affect and normal mood; Absent anxious and depressed Skin Skin exam: Present erythema and rash; Absent dry and intact OBJ DATA Labs CBC & Chem 7: 03/21/21 05:11 03/21/21 05:11 Labs: Abnormal Lab Results 03/21/21 03/21/21 03/20/21 05:11 05:11 05:03 WBC Hgb 10.3 L MCV 101.1 H MCHC 27.2 L RDW 17.3 H Neut % (Auto) 79.7 H Lymph % (Auto) 11.0 L Lymph # (Auto) 0.99 L Absolute Neutrophils D-Dimer Chloride 95 L Carbon Dioxide 43 H* 43 H* Anion Gap 4.0 L 4.0 L Glucose Calcium 8.5 L Total Bilirubin 1.1 H NT-Pro-B Natriuret Pep Albumin 2.5 L 2.6 L Globulin 4.4 H 4.6 H Albumin/Globulin Ratio 0.6 L 0.6 L Urine Ketones Urine Urobilinogen 03/20/21 03/19/21 03/19/21 05:03 13:53 12:20 WBC Hgb 10.8 L MCV 100.8 H MCHC 27.8 L RDW 17.8 H Neut % (Auto) 82.4 H Lymph % (Auto) 11.2 L Lymph # (Auto) 1.16 L Absolute Neutrophils 8.53 H D-Dimer Chloride Carbon Dioxide 33 H Anion Gap Glucose 112 H Calcium Total Bilirubin 1.2 H NT-Pro-B Natriuret Pep 1468.0 H Albumin Globulin 5.1 H Albumin/Globulin Ratio 0.6 L Urine Ketones 5 A Urine Urobilinogen 4.0 A 03/19/21 03/19/21 12:20 12:20 WBC 11.8 H Hgb MCV MCHC 28.0 L RDW 18.2 H Neut % (Auto) 84.8 H Lymph % (Auto) 7.6 L Lymph # (Auto) 0.90 L Absolute Neutrophils 10.01 H D-Dimer > 20.0 H Chloride Carbon Dioxide Anion Gap Glucose Calcium Total Bilirubin NT-Pro-B Natriuret Pep Albumin Globulin Albumin/Globulin Ratio Urine Ketones Urine Urobilinogen Meds: Medications Acetaminophen (Acetaminophen 325 Mg Tablet) 650 mg PO Q6HP PRN; Protocol PRN Reason: Per Pain Protocol/Fever > 101 Last Admin: 03/21/21 05:55 Dose: 650 mg Documented by: Albuterol/Ipratropium (Ipratropium/Albuterol 3 Ml Ampul.Neb) 3 ml NEB Q4HRT PRN PRN Reason: Wheezing Calamine (Calamine/Zinc Oxide 1 Dose Lotion) 1 dose TOPICAL BID [facility] Last Admin: 03/21/21 08:07 Dose: Not Given Documented by: Dextrose (Dextrose 50% 50 Ml Vial) 0 ml IV UD PRN PRN Reason: Hypoglycemia Diagnostic Test (Pha) (Accu-Chek 1 Each Strip) 1 each FS [facility] Last Admin: 03/21/21 08:06 Dose: 1 each Documented by: Docusate Sodium (Docusate Sodium 100 Mg Capsule) 100 mg PO BID [facility] Last Admin: 03/21/21 08:07 Dose: Not Given Documented by: Enoxaparin Sodium (Enoxaparin 40 Mg/0.4 Ml Syringe) 40 mg SQ DAILY [facility] Last Admin: 03/21/21 08:12 Dose: 40 mg Documented by: Furosemide (Furosemide 40 Mg/4 Ml Vial) 40 mg IV BIDD [facility] Last Admin: 03/21/21 08:12 Dose: 40 mg Documented by: Glucose (Dextrose 31 Gm Oral.Susp) 15 gm PO PRN PRN PRN Reason: Hypoglycemia Guaifenesin (Guaifenesin/Dextromethorphan Oral Emelyn) 10 ml PO Q4HP PRN PRN Reason: Cough Insulin Human Lispro (Insulin Lispro 1 Unit/0.01 Ml Unit) 0 unit SQ [facility]; Protocol Last Admin: 03/21/21 08:06 Dose: Not Given Documented by: Ketorolac Tromethamine (Ketorolac 30 Mg/Ml Vial) 30 mg IV Q6HP PRN PRN Reason: Per Pain Protocol Stop: 03/23/21 09:59 Lisinopril (Lisinopril 5 Mg Tablet) 5 mg PO DAILY [facility] Last Admin: 03/21/21 08:07 Dose: Not Given Documented by: Metoprolol Tartrate (Metoprolol Tartrate 5 Mg/5 Ml Vial) 5 mg IV Q5M PRN PRN Reason: Tachyarrhythmias Last Admin: 03/20/21 10:12 Dose: 5 mg Documented by: Nystatin (Nystatin Powder Bottle 15gm) 1 dose TOPICAL BID [facility] Last Admin: 03/20/21 20:28 Dose: 1 dose Documented by: Ondansetron HCl (Ondansetron 4 Mg/2 Ml Vial) 4 mg IV Q6HP PRN PRN Reason: Nausea And Vomiting Senna (Sennosides 1 Tablet) 2 tab PO HS [facility] Last Admin: 03/20/21 20:21 Dose: Not Given Documented by: Sodium Chloride (0.9 % Sodium Chloride 10 Ml Syringe) 10 ml IV Q8 [facility] Last Admin: 03/21/21 05:23 Dose: 10 ml Documented by: Zolpidem Tartrate (Zolpidem 5 Mg Tablet) 5 mg PO HSP PRN PRN Reason: Insomnia Last Admin: 03/20/21 23:13 Dose: 5 mg Documented by: A/P Assessment and plan (1) CHF exacerbation: Status: Acute Qualifiers: Heart failure type: unspecified Qualified Code(s): I50.9 - Heart failure, unspecified (2) Acute and chronic respiratory failure with hypoxia: Status: Acute (3) On home oxygen therapy: Status: Acute (4) Morbid obesity: Status: Acute (5) T2DM (type 2 diabetes mellitus): Status: Acute (6) Essential (primary) hypertension: Status: Acute (7) Medical non-compliance: Status: Acute (8) JO (obstructive sleep apnea): Status: Acute (9) Intertrigo: Status: Acute Narrative A/P Narrative: Assessment and Plans: 1. Acute on chronic respiratory failure secondary to CHF exacerbation: Stays in inpatient med surg telemetry Intake and output Daily weigh 2L/day fluid intake Supplemental oxygen therapy titrate to achieve spo2 >=92%. Home oxygen requirement 4-5L/min Lasix 40mg IV BID Coreg 3.125mg PO BID Lisinopril 2D echocardiogram-->LVEF 65-70%, indeterminant diastolic function PT OT evaluation--> SNF placement 2. T2DM: HgA1c Hold any oral hypoglycemics Low dose SSI AC HS Accu Chek AC HS Hypoglycemia protocol Diabetic diet 3. Essential HTN: Lasix 40mg IV BID Coreg 3.125mg PO BID Lisinopril Aldactone not indicated-->LVEF>40% 4. Morbid obesity: Recovery Auditor patient on life style modifications including regular exercise and healthy diet in order to lose weight 5. JO: BiPAP at night Need outpatient sleep study for candidacy for CPAP/BiPAP 6. Intertrigo: Zinc oxide tropical BID Nystatin topical BID Keep Burton catheter on for the skin to heal Dr. Orosco-->continue routine wound/skin care, not surgical candidate. No need to follow up with him GI ppx: not currently indicated DVT ppx: Lovenox Code status: Full Prognosis: stable Disposition: inpatient med surg; PT OT for SNF placement Time Spent With Patient Time: Total time spent is greater than 50% in coordination of care (as documented) at patient's floor/unit and/or counseling patient: QUALITY Stroke Symptom Onset Unknown: No VTE Deep Vein Thrombosis/Pulmonary Embolism Present on Admission: No
[2021-03-21] MEDS: KETOROLAC 30 MG/ML VIAL IV PRN ×2 (12:10→18:40)
[2021-03-21] MEDS: NYSTATIN POWDER BOTTLE 15GM TOPICAL SCH ×2 (12:18→21:04)
[2021-03-21] MEDS: CARVEDILOL 3.125 MG TABLET PO SCH (17:12)
[2021-03-21] MEDS: SENNOSIDES 1 TABLET PO SCH (21:03)
[2021-03-22] MEDS: 0.9 % SODIUM CHLORIDE 10 ML SYRINGE IV SCH ×3 (05:15→20:43)
[2021-03-22 06:32] LABS: Basophils # (Auto) 0.03 K/mcL (0.00-0.30); Basophils % (Auto) 0.4 % (0.0-2.0); Eosinophils # (Auto) 0.34 K/mcL (0.00-0.70); Eosinophils % (Auto) 4.1 % (0.0-7.0); Hematocrit 37.9 % (34.1-44.9); Hemoglobin 10.2 g/dL (11.2-15.7); Lymphocytes # (Auto) 1.15 K/mcL (1.50-4.80); Mean Cell Volume 100.5 fL (80.0-100.0); Mean Corpuscular HGB Conc 26.9 g/dL (31.0-36.0); Mean Platelet Volume 10.3 fL (7.4-10.4); Monocytes # (Auto) 0.64 K/mcL (0.10-0.90); Monocytes % (Auto) 7.8 % (1.0-12.0); Neutrophils % (Auto) 73.7 % (38.0-78.0); Platelet Count 210 K/mcL (140-440); RBC 3.77 M/mcL (3.59-5.38); Red Cell Distribution Width 17.3 % (11.5-14.5); WBC 8.2 K/mcL (4.5-11.0)
[2021-03-22] MEDS: ACETAMINOPHEN 325 MG TABLET PO PRN ×3 (06:39→17:50)
[2021-03-22] MEDS: NYSTATIN POWDER BOTTLE 15GM TOPICAL SCH ×2 (08:29→20:43)
[2021-03-22] MEDS: CARVEDILOL 3.125 MG TABLET PO SCH ×2 (08:36→17:50)
[2021-03-22] MEDS: LISINOPRIL 5 MG TABLET PO SCH (08:36)
[2021-03-22] MEDS: FUROSEMIDE 40 MG/4 ML VIAL IV SCH (08:37)
[2021-03-22] MEDS: ZINC OXIDE TOPICAL SCH ×2 (08:37→20:38)
[2021-03-22] MEDS: DOCUSATE SODIUM 100 MG CAPSULE PO SCH ×2 (08:37→20:37)
[2021-03-22] MEDS: KETOROLAC 30 MG/ML VIAL IV PRN (08:37)
[2021-03-22] MEDS: CALAMINE TOPICAL SCH ×2 (08:37→20:38)
[2021-03-22] MEDS: ENOXAPARIN 40 MG/0.4 ML SYRINGE SQ SCH (08:37)
[2021-03-22] MEDS: INSULIN LISPRO 1 UNIT/0.01 ML UNIT SQ SCH ×4 (08:38→20:43)
[2021-03-22 08:50] LABS: ALT/SGPT 9 U/L (<40); AST/SGOT 17 U/L (<32); Albumin 2.6 gm/dL (3.2-5.2); Albumin/Globulin Ratio 0.6 (1.0-2.3); Alkaline Phosphatase 75 U/L (39-117); Bilirubin,Total 0.7 mg/dL (0.1-1.0); Blood Urea Nitrogen 19 mg/dL (8-23); Calcium 8.5 mg/dL (8.6-10.4); Carbon Dioxide 44 mmol/L (22-30); Chloride 92 mmol/L (96-108); Globulin 4.3 gm/dL (2.2-3.7); Glomerular Filtration Rate 95; Glucose 70 mg/dL (70-105)
--- NOTE | 2021-03-22 10:15 | Internal Med Progress Note ---
SUBJECTIVE Subjective Patient information: Note initiated : 03/22/21 at 10:12 am Service Date, if different from initiated Date: [] Patient: Sheila Hernández a 65 y/o F admitted on 03/19/21 for Shortness of breath. Chief Complaint: [] Interval history: History of present illness: Ms. Hernández is a 65 year old F medically noncompliant, CHF, type 2 diabetes, essential hypertension's, presenting with acute on chronic general body weakness and dyspnea. She is having symptoms of general body weakness and dyspnea for at least a year but then it gets significantly worse since yesterday. She is complaining of orthopnea to the point that she cannot lay flat and she have to sleep on the chair. She is also committing of chronic bilateral leg swelling. She is not sure if she have any unintentional weight gain as she does not with herself. She denies any cough or sputum productions or wheezing. She denies any fever or chills or diaphoresis. She denies any change in her appetite. She is chronically bedbound. She denies any chest pain or palpitations or chest pressure. She uses oxygen at home 4 to 5 L/min baseline. Vital signs at ED presentation significant for tachycardia and tachypnea with heart rate and rate of breathing up to 120s and 30s beats per minute and breath per minute, respectively. Oxygen saturations in the mid 90s on 4 to 5 L of supplemental oxygen's. Labs significant for leukocytosis with WBC 11.8. Elevated serum BNP 1500 with unknown baseline. Serum troponin not elevated at 0.02. Initial Covid Celi negative, confirmatory Covid PCR test pending. Chest x-ray showing evidence of severe CHF with cardiomegaly and bilateral pleural edema. 03/20: Been placed on BiPAP overnight. Now this morning she's on 5L/min oxygen via nasal cannula. Afebrile. Mental status much improved. Denies SOB. Denies cough or sputum production. Denies wheezing. Denies general body weakness. PT OT: SNF placement. 03/21: Been on BiPAP overnight 12/5cm H2O with FiO2 35%. Afebrile overnight. 2D echocardiogram: LVEF 65-70%, indeterminant diastolic function. Mental status much improved. Denies SOB. Denies cough or sputum production. Denies wheezing. Denies general body weakness. c/o moderate generalized body pain. PT OT: SNF placement. 03/22: Been on BiPAP overnight 12/5cm H2O with FiO2 35%, now on nasal cannula. Afebrile overnight. Mental status much improved. Denies SOB. Denies cough or sputum production. Denies wheezing. Denies general body weakness. c/o moderate generalized body pain. PT OT: SNF placement. Constitutional Vitals: Vital Signs Temp Pulse Resp BP Pulse Ox 36.2 C 81 22 119/63 94 03/22/21 08:01 03/22/21 08:01 03/22/21 08:01 03/22/21 08:01 03/22/21 08:01 Period Temp Pulse Resp BP Sys/Lou Pulse Ox Last 24 Hr 36.2 C-36.6 C 70-121 18-29 94-126/44-68 92-98 Intake and Output 03/21/21 03/22/21 03/22/21 21:59 05:59 13:59 Intake Total 240 250 Output Total 850 950 Balance -610 -700 Weight 156.399 kg Intake & Output: Intake & Output 03/21/21 03/22/21 03/22/21 21:59 05:59 13:59 Intake Total 240 250 Output Total 850 950 Balance -610 -700 Weight 156.399 kg Intake: Oral 240 250 Output: Urine Catheter Amount 850 950 Other: Meal Lunch Percent of Meal Consumed 100% Feeding Ability Assist with Tray Set Up Urine Appearance Cloudy Clear Urine Color Dark Yellow Dark Yellow Uretheral (Burton) Dark Yellow Urine Odor Normal Stool Size Large Stool Color Brown Stool Consistency Loose # Bowel Movements 1 # of times incontinent of 0 Bowels General appearance: cooperative, morbidly obese and no acute distress Head Head exam: Present atraumatic and normocephalic Eye Eye exam: Present EOMI and PERRL ENT ENT exam: Present mucous membranes moist, normal exam and normal external ear exam Additional comments: nasal cannula in place Neck Neck exam: Present normal inspection; Absent lymphadenopathy, tenderness and thyromegaly Respiratory Respiratory exam: Present decreased breath sounds; Absent accessory muscle use, respiratory distress and wheezes Cardiovascular Cardiovascular exam: Present normal rate and rhythm; Absent JVD GI/Abdominal GI/Abdominal exam: Present normal bowel sounds and soft; Absent organomegaly and tenderness Extremities Exam Extremities exam: Present full ROM, normal capillary refill and normal inspection; Absent tenderness Neurological Exam Neurological exam: Present alert, CN II-XII intact and oriented X3; Absent motor sensory deficit Psychiatric Psychiatric exam: Present normal affect and normal mood; Absent anxious and depressed Skin Skin exam: Present dry, erythema, intact and rash Additional comments: intertrigo abdomen and groins OBJ DATA Labs CBC & Chem 7: 03/22/21 05:02 03/22/21 05:02 Labs: Abnormal Lab Results 03/22/21 03/22/21 03/21/21 05:02 05:02 05:11 WBC Hgb 10.2 L MCV 100.5 H MCHC 26.9 L RDW 17.3 H Neut % (Auto) Lymph % (Auto) 14.0 L Lymph # (Auto) 1.15 L Absolute Neutrophils D-Dimer Chloride 92 L 95 L Carbon Dioxide 44 H* 43 H* Anion Gap 6.0 L 4.0 L Glucose Calcium 8.5 L 8.5 L Total Bilirubin NT-Pro-B Natriuret Pep Albumin 2.6 L 2.5 L Globulin 4.3 H 4.4 H Albumin/Globulin Ratio 0.6 L 0.6 L Urine Ketones Urine Urobilinogen 03/21/21 03/20/21 03/20/21 05:11 05:03 05:03 WBC Hgb 10.3 L 10.8 L MCV 101.1 H 100.8 H MCHC 27.2 L 27.8 L RDW 17.3 H 17.8 H Neut % (Auto) 79.7 H 82.4 H Lymph % (Auto) 11.0 L 11.2 L Lymph # (Auto) 0.99 L 1.16 L Absolute Neutrophils 8.53 H D-Dimer Chloride Carbon Dioxide 43 H* Anion Gap 4.0 L Glucose Calcium Total Bilirubin 1.1 H NT-Pro-B Natriuret Pep Albumin 2.6 L Globulin 4.6 H Albumin/Globulin Ratio 0.6 L Urine Ketones Urine Urobilinogen 03/19/21 03/19/21 03/19/21 13:53 12:20 12:20 WBC Hgb MCV MCHC RDW Neut % (Auto) Lymph % (Auto) Lymph # (Auto) Absolute Neutrophils D-Dimer > 20.0 H Chloride Carbon Dioxide 33 H Anion Gap Glucose 112 H Calcium Total Bilirubin 1.2 H NT-Pro-B Natriuret Pep 1468.0 H Albumin Globulin 5.1 H Albumin/Globulin Ratio 0.6 L Urine Ketones 5 A Urine Urobilinogen 4.0 A 03/19/21 12:20 WBC 11.8 H Hgb MCV MCHC 28.0 L RDW 18.2 H Neut % (Auto) 84.8 H Lymph % (Auto) 7.6 L Lymph # (Auto) 0.90 L Absolute Neutrophils 10.01 H D-Dimer Chloride Carbon Dioxide Anion Gap Glucose Calcium Total Bilirubin NT-Pro-B Natriuret Pep Albumin Globulin Albumin/Globulin Ratio Urine Ketones Urine Urobilinogen Meds: Medications Acetaminophen (Acetaminophen 325 Mg Tablet) 650 mg PO Q6HP PRN; Protocol PRN Reason: Per Pain Protocol/Fever > 101 Last Admin: 03/22/21 06:39 Dose: 650 mg Documented by: Albuterol/Ipratropium (Ipratropium/Albuterol 3 Ml Ampul.Neb) 3 ml NEB Q4HRT PRN PRN Reason: Wheezing Calamine (Calamine/Zinc Oxide 1 Dose Lotion) 1 dose TOPICAL BID [facility] Last Admin: 03/22/21 08:37 Dose: Not Given Documented by: Carvedilol (Carvedilol 3.125 Mg Tablet) 3.125 mg PO BIDCC [facility] Last Admin: 03/22/21 08:36 Dose: 3.125 mg Documented by: Dextrose (Dextrose 50% 50 Ml Vial) 0 ml IV UD PRN PRN Reason: Hypoglycemia Diagnostic Test (Pha) (Accu-Chek 1 Each Strip) 1 each FS ACHS [facility] Last Admin: 03/22/21 08:38 Dose: 1 each Documented by: Docusate Sodium (Docusate Sodium 100 Mg Capsule) 100 mg PO BID [facility] Last Admin: 03/22/21 08:37 Dose: Not Given Documented by: Enoxaparin Sodium (Enoxaparin 40 Mg/0.4 Ml Syringe) 40 mg SQ DAILY [facility] Last Admin: 03/22/21 08:37 Dose: 40 mg Documented by: Furosemide (Furosemide 40 Mg Tablet) 40 mg PO BIDD [facility] Glucose (Dextrose 31 Gm Oral.Susp) 15 gm PO PRN PRN PRN Reason: Hypoglycemia Guaifenesin (Guaifenesin/Dextromethorphan Oral Emelyn) 10 ml PO Q4HP PRN PRN Reason: Cough Insulin Human Lispro (Insulin Lispro 1 Unit/0.01 Ml Unit) 0 unit SQ ACHS [facility]; Protocol Last Admin: 03/22/21 08:38 Dose: Not Given Documented by: Ketorolac Tromethamine (Ketorolac 30 Mg/Ml Vial) 30 mg IV Q6HP PRN PRN Reason: Per Pain Protocol Stop: 03/23/21 09:59 Last Admin: 03/22/21 08:37 Dose: 30 mg Documented by: Lisinopril (Lisinopril 5 Mg Tablet) 5 mg PO DAILY [facility] Last Admin: 03/22/21 08:36 Dose: 5 mg Documented by: Metoprolol Tartrate (Metoprolol Tartrate 5 Mg/5 Ml Vial) 5 mg IV Q5M PRN PRN Reason: Tachyarrhythmias Last Admin: 03/20/21 10:12 Dose: 5 mg Documented by: Nystatin (Nystatin Powder Bottle 15gm) 1 dose TOPICAL BID [facility] Last Admin: 03/22/21 08:29 Dose: 1 dose Documented by: Ondansetron HCl (Ondansetron 4 Mg/2 Ml Vial) 4 mg IV Q6HP PRN PRN Reason: Nausea And Vomiting Senna (Sennosides 1 Tablet) 2 tab PO HS [facility] Last Admin: 03/21/21 21:03 Dose: 2 tab Documented by: Sodium Chloride (0.9 % Sodium Chloride 10 Ml Syringe) 10 ml IV Q8 [facility] Last Admin: 03/22/21 05:15 Dose: 10 ml Documented by: Trazodone HCl (Trazodone Hcl 50 Mg Tablet) 50 mg PO HSP PRN PRN Reason: Insomnia A/P Assessment and plan (1) CHF exacerbation: Status: Acute Qualifiers: Heart failure type: unspecified Qualified Code(s): I50.9 - Heart failure, unspecified (2) Acute and chronic respiratory failure with hypoxia: Status: Acute (3) On home oxygen therapy: Status: Acute (4) Morbid obesity: Status: Acute (5) T2DM (type 2 diabetes mellitus): Status: Acute (6) Essential (primary) hypertension: Status: Acute (7) Medical non-compliance: Status: Acute (8) JO (obstructive sleep apnea): Status: Acute (9) Intertrigo: Status: Acute Narrative A/P Narrative: Assessment and Plans: 1. Acute on chronic respiratory failure secondary to CHF exacerbation: Stays in inpatient med surg telemetry Intake and output Daily weigh 2L/day fluid intake Supplemental oxygen therapy titrate to achieve spo2 >=92%. Home oxygen requirement 4-5L/min. Try CPAP while sleeping tonight. Lasix 40mg PO BID Coreg 3.125mg PO BID Lisinopril 2D echocardiogram-->LVEF 65-70%, indeterminant diastolic function PT OT evaluation--> SNF placement 2. T2DM: HgA1c Hold any oral hypoglycemics Low dose SSI AC HS Accu Chek AC HS Hypoglycemia protocol Diabetic diet 3. Essential HTN: Lasix 40mg IV BID Coreg 3.125mg PO BID Lisinopril Aldactone not indicated-->LVEF>40% 4. Morbid obesity: [employer] patient on life style modifications including regular exercise and healthy diet in order to lose weight 5. JO: Try CPAP while sleeping tonight. Need outpatient sleep study for candidacy for CPAP/BiPAP 6. Intertrigo: Zinc oxide tropical BID Nystatin topical BID Keep Burton catheter on for the skin to heal Dr. Orosco-->continue routine wound/skin care, not surgical candidate. No need to follow up with him GI ppx: not currently indicated DVT ppx: Lovenox Code status: Full Prognosis: stable Disposition: inpatient med surg; PT OT for SNF placement Time Spent With Patient Time: Total time spent is greater than 50% in coordination of care (as documented) at patient's floor/unit and/or counseling patient: QUALITY Stroke Symptom Onset Unknown: No VTE Deep Vein Thrombosis/Pulmonary Embolism Present on Admission: No
[2021-03-22] MEDS: FUROSEMIDE 40 MG TABLET PO SCH (15:36)
[2021-03-22] MEDS: SENNOSIDES 1 TABLET PO SCH (20:37)
[2021-03-23] MEDS: traZODone HCL 50 MG TABLET PO PRN ×2 (03:19→20:43)
[2021-03-23] MEDS: 0.9 % SODIUM CHLORIDE 10 ML SYRINGE IV SCH ×3 (05:26→20:44)
[2021-03-23 06:49] LABS: Basophils # (Auto) 0.04 K/mcL (0.00-0.30); Basophils % (Auto) 0.5 % (0.0-2.0); Eosinophils # (Auto) 0.34 K/mcL (0.00-0.70); Eosinophils % (Auto) 4.4 % (0.0-7.0); Hematocrit 39.6 % (34.1-44.9); Lymphocytes # (Auto) 1.02 K/mcL (1.50-4.80); Lymphocytes % (Auto) 13.2 % (15.5-49.0); Mean Cell Volume 101.3 fL (80.0-100.0); Mean Corpuscular HGB Conc 27.8 g/dL (31.0-36.0); Mean Platelet Volume 10.3 fL (7.4-10.4); Monocytes # (Auto) 0.61 K/mcL (0.10-0.90); Monocytes % (Auto) 7.9 % (1.0-12.0); Platelet Count 203 K/mcL (140-440); RBC 3.91 M/mcL (3.59-5.38); Red Cell Distribution Width 17.2 % (11.5-14.5); WBC 7.7 K/mcL (4.5-11.0)
[2021-03-23 08:12] LABS: ALT/SGPT 11 U/L (<40); AST/SGOT 19 U/L (<32); Albumin 2.8 gm/dL (3.2-5.2); Albumin/Globulin Ratio 0.6 (1.0-2.3); Alkaline Phosphatase 75 U/L (39-117); Bilirubin,Total 0.7 mg/dL (0.1-1.0); Blood Urea Nitrogen 17 mg/dL (8-23); Calcium 8.7 mg/dL (8.6-10.4); Carbon Dioxide 45 mmol/L (22-30); Chloride 88 mmol/L (96-108); Globulin 4.5 gm/dL (2.2-3.7); Glomerular Filtration Rate 100; Glucose 98 mg/dL (70-105)
[2021-03-23] MEDS: FUROSEMIDE 40 MG TABLET PO SCH ×2 (08:51→17:56)
[2021-03-23] MEDS: LISINOPRIL 5 MG TABLET PO SCH (08:51)
[2021-03-23] MEDS: ENOXAPARIN 40 MG/0.4 ML SYRINGE SQ SCH (08:51)
[2021-03-23] MEDS: CARVEDILOL 3.125 MG TABLET PO SCH ×2 (08:51→17:56)
[2021-03-23] MEDS: CALAMINE TOPICAL SCH ×2 (08:52→20:35)
[2021-03-23] MEDS: INSULIN LISPRO 1 UNIT/0.01 ML UNIT SQ SCH ×4 (08:52→20:42)
[2021-03-23] MEDS: ZINC OXIDE TOPICAL SCH ×2 (08:52→20:35)
[2021-03-23] MEDS: NYSTATIN POWDER BOTTLE 15GM TOPICAL SCH ×2 (08:52→20:42)
[2021-03-23] MEDS: DOCUSATE SODIUM 100 MG CAPSULE PO SCH ×2 (08:52→20:35)
[2021-03-23] MEDS: ACETAMINOPHEN 325 MG TABLET PO PRN ×2 (08:55→17:56)
--- NOTE | 2021-03-23 09:01 | Internal Med Progress Note ---
SUBJECTIVE Subjective Patient information: Note initiated : 03/23/21 at 8:59 am Service Date, if different from initiated Date: [] Patient: Sheila Hernández a 65 y/o F admitted on 03/19/21 for Shortness of breath. Chief Complaint: [CHF exacerbation] Interval history: History of present illness: Ms. Hernández is a 65 year old F medically noncompliant, CHF, type 2 diabetes, essential hypertension's, presenting with acute on chronic general body weakness and dyspnea. She is having symptoms of general body weakness and dyspnea for at least a year but th en it gets significantly worse since yesterday. She is complaining of orthopnea to the point that she cannot lay flat and she have to sleep on the chair. She is also committing of chronic bilateral leg swelling. She is not sure if she have any unintentional weight gain as she does not with herself. She denies any cough or sputum productions or wheezing. She denies any fever or chills or diaphoresis. She denies any change in her appetite. She is chronically bedbound. She denies any chest pain or palpitations or chest pressure. She uses oxygen at home 4 to 5 L/min baseline. Vital signs at ED presentation significant for tachycardia and tachypnea with heart rate and rate of breathing up to 120s and 30s beats per minute and breath per minute, respectively. Oxygen saturations in the mid 90s on 4 to 5 L of supplemental oxygen's. Labs significant for leukocytosis with WBC 11.8. Elevated serum BNP 1500 with unknown baseline. Serum troponin not elevated at 0.02. Initial Covid Celi negative, confirmatory Covid PCR test pending. Chest x-ray showing evidence of severe CHF with cardiomegaly and bilateral pleural edema. 03/20: Been placed on BiPAP overnight. Now this morning she's on 5L/min oxygen via nasal cannula. Afebrile. Mental status much improved. Denies SOB. Denies cough or sputum production. Denies wheezing. Denies general body weakness. PT OT: SNF placement. 03/21: Been on BiPAP overnight 12/5cm H2O with FiO2 35%. Afebrile overnight. 2D echocardiogram: LVEF 65-70%, indeterminant diastolic function. Mental status much improved. Denies SOB. Denies cough or sputum production. Denies wheezing. Denies general body weakness. c/o moderate generalized body pain. PT OT: SNF placement. 03/22: Been on BiPAP overnight 12/5cm H2O with FiO2 35%, now on nasal cannula. Afebrile overnight. Mental status much improved. Denies SOB. Denies cough or sputum production. Denies wheezing. Denies general body weakness. c/o moderate generalized body pain. PT OT: SNF placement. 03/23: Been on BiPAP overnight 12/5cm H2O with FiO2 35%, now on nasal cannula. Afebrile overnight. Mental status much improved. Denies SOB. Denies cough or sputum production. Denies wheezing. Denies general body weakness. c/o moderate generalized body pain. PT OT: SNF placement. Constitutional Vitals: Vital Signs Temp Pulse Resp BP Pulse Ox 36.1 C 79 24 H 108/72 100 03/23/21 08:03 03/23/21 08:03 03/23/21 08:03 03/23/21 08:03 03/23/21 08:03 Period Temp Pulse Resp BP Sys/Lou Pulse Ox Last 24 Hr 36.1 C-36.9 C 73-88 18-27 102-132/54-72 91-100 Intake and Output 03/22/21 03/23/21 03/23/21 21:59 05:59 13:59 Intake Total 240 300 Output Total 1025 650 Balance -785 -350 Weight 148.869 kg Intake & Output: Intake & Output 03/22/21 03/23/21 03/23/21 21:59 05:59 13:59 Intake Total 240 300 Output Total 1025 650 Balance -785 -350 Weight 148.869 kg Intake: Oral 240 300 Output: Urine Catheter Amount 1025 650 Other: Meal Dinner Percent of Meal Consumed 75% Urine Appearance Clear Clear Uretheral (Burton) Clear Urine Color Bright Yellow Dark Kristine Uretheral (Burton) Dark Yellow Urine Odor Normal Normal Stool Size Smear Stool Color Brown Stool Consistency Soft # Bowel Movements 1 # of times incontinent of 0 Bowels General appearance: cooperative, morbidly obese and no acute distress Head Head exam: Present atraumatic and normocephalic Eye Eye exam: Present EOMI and PERRL ENT ENT exam: Present mucous membranes moist, normal exam and normal external ear exam Additional comments: Nasal cannula in place Neck Neck exam: Present normal inspection; Absent lymphadenopathy, tenderness and thyromegaly Respiratory Respiratory exam: Present decreased breath sounds; Absent accessory muscle use, respiratory distress and wheezes Cardiovascular Cardiovascular exam: Present normal rate and rhythm; Absent JVD GI/Abdominal GI/Abdominal exam: Present normal bowel sounds and soft; Absent organomegaly and tenderness Additional comments: Burton catheter in place Extremities Exam Extremities exam: Present full ROM, normal capillary refill and normal inspection; Absent tenderness Neurological Exam Neurological exam: Present alert, CN II-XII intact and oriented X3; Absent motor sensory deficit Psychiatric Psychiatric exam: Present normal affect and normal mood; Absent anxious and depressed Skin Skin exam: Present dry, erythema, intact and rash OBJ DATA Labs CBC & Chem 7: 03/23/21 05:40 03/23/21 05:40 Labs: Abnormal Lab Results 03/23/21 03/23/21 03/22/21 05:40 05:40 05:02 Hgb 11.0 L MCV 101.3 H MCHC 27.8 L RDW 17.2 H Neut % (Auto) Lymph % (Auto) 13.2 L Lymph # (Auto) 1.02 L Chloride 88 L 92 L Carbon Dioxide 45 H* 44 H* Anion Gap 6.0 L Creatinine 0.5 L Calcium 8.5 L Albumin 2.8 L 2.6 L Globulin 4.5 H 4.3 H Albumin/Globulin Ratio 0.6 L 0.6 L 03/22/21 03/21/21 03/21/21 05:02 05:11 05:11 Hgb 10.2 L 10.3 L MCV 100.5 H 101.1 H MCHC 26.9 L 27.2 L RDW 17.3 H 17.3 H Neut % (Auto) 79.7 H Lymph % (Auto) 14.0 L 11.0 L Lymph # (Auto) 1.15 L 0.99 L Chloride 95 L Carbon Dioxide 43 H* Anion Gap 4.0 L Creatinine Calcium 8.5 L Albumin 2.5 L Globulin 4.4 H Albumin/Globulin Ratio 0.6 L Meds: Medications Acetaminophen (Acetaminophen 325 Mg Tablet) 650 mg PO Q6HP PRN; Protocol PRN Reason: Per Pain Protocol/Fever > 101 Last Admin: 03/23/21 08:55 Dose: 650 mg Documented by: Albuterol/Ipratropium (Ipratropium/Albuterol 3 Ml Ampul.Neb) 3 ml NEB Q4HRT PRN PRN Reason: Wheezing Calamine (Calamine/Zinc Oxide 1 Dose Lotion) 1 dose TOPICAL BID [facility] Last Admin: 03/23/21 08:52 Dose: Not Given Documented by: Carvedilol (Carvedilol 3.125 Mg Tablet) 3.125 mg PO BIDCC [facility] Last Admin: 03/23/21 08:51 Dose: 3.125 mg Documented by: Dextrose (Dextrose 50% 50 Ml Vial) 0 ml IV UD PRN PRN Reason: Hypoglycemia Diagnostic Test (Pha) (Accu-Chek 1 Each Strip) 1 each FS [facility] Last Admin: 03/23/21 08:52 Dose: 1 each Documented by: Docusate Sodium (Docusate Sodium 100 Mg Capsule) 100 mg PO BID [facility] Last Admin: 03/23/21 08:52 Dose: Not Given Documented by: Enoxaparin Sodium (Enoxaparin 40 Mg/0.4 Ml Syringe) 40 mg SQ DAILY [facility] Last Admin: 03/23/21 08:51 Dose: 40 mg Documented by: Furosemide (Furosemide 40 Mg Tablet) 40 mg PO BIDD [facility] Last Admin: 03/23/21 08:51 Dose: 40 mg Documented by: Glucose (Dextrose 31 Gm Oral.Susp) 15 gm PO PRN PRN PRN Reason: Hypoglycemia Guaifenesin (Guaifenesin/Dextromethorphan Oral Emelyn) 10 ml PO Q4HP PRN PRN Reason: Cough Insulin Human Lispro (Insulin Lispro 1 Unit/0.01 Ml Unit) 0 unit SQ [facility]; Protocol Last Admin: 03/23/21 08:52 Dose: Not Given Documented by: Ketorolac Tromethamine (Ketorolac 30 Mg/Ml Vial) 30 mg IV Q6HP PRN PRN Reason: Per Pain Protocol Stop: 03/23/21 09:59 Last Admin: 03/22/21 08:37 Dose: 30 mg Documented by: Lisinopril (Lisinopril 5 Mg Tablet) 5 mg PO DAILY [facility] Last Admin: 03/23/21 08:51 Dose: 5 mg Documented by: Metoprolol Tartrate (Metoprolol Tartrate 5 Mg/5 Ml Vial) 5 mg IV Q5M PRN PRN Reason: Tachyarrhythmias Last Admin: 03/20/21 10:12 Dose: 5 mg Documented by: Nystatin (Nystatin Powder Bottle 15gm) 1 dose TOPICAL BID [facility] Last Admin: 03/23/21 08:52 Dose: 1 dose Documented by: Ondansetron HCl (Ondansetron 4 Mg/2 Ml Vial) 4 mg IV Q6HP PRN PRN Reason: Nausea And Vomiting Senna (Sennosides 1 Tablet) 2 tab PO [facility] Last Admin: 03/22/21 20:37 Dose: Not Given Documented by: Sodium Chloride (0.9 % Sodium Chloride 10 Ml Syringe) 10 ml IV Q8 [facility] Last Admin: 03/23/21 05:26 Dose: 10 ml Documented by: Trazodone HCl (Trazodone Hcl 50 Mg Tablet) 50 mg PO HSP PRN PRN Reason: Insomnia Last Admin: 03/23/21 03:19 Dose: 50 mg Documented by: A/P Assessment and plan (1) CHF exacerbation: Status: Acute Qualifiers: Heart failure type: unspecified Qualified Code(s): I50.9 - Heart failure, unspecified (2) Acute and chronic respiratory failure with hypoxia: Status: Acute (3) On home oxygen therapy: Status: Acute (4) Morbid obesity: Status: Acute (5) T2DM (type 2 diabetes mellitus): Status: Acute (6) Essential (primary) hypertension: Status: Acute (7) Medical non-compliance: Status: Acute (8) JO (obstructive sleep apnea): Status: Acute (9) Intertrigo: Status: Acute Narrative A/P Narrative: Assessment and Plans: 1. Acute on chronic respiratory failure secondary to CHF exacerbation: Stays in inpatient med surg telemetry Intake and output Daily weigh 2L/day fluid intake Supplemental oxygen therapy titrate to achieve spo2 >=92%. Home oxygen requirement 4-5L/min. Try CPAP while sleeping tonight. Lasix 40mg PO BID Coreg 3.125mg PO BID Lisinopril 2D echocardiogram-->LVEF 65-70%, indeterminant diastolic function PT OT evaluation--> SNF placement 2. T2DM: HgA1c Hold any oral hypoglycemics Low dose SSI AC HS Accu Chek qSHIFT Hypoglycemia protocol Diabetic diet 3. Essential HTN: Lasix 40mg IV BID Coreg 3.125mg PO BID Lisinopril Aldactone not indicated-->LVEF>40% 4. Morbid obesity: [employer] patient on life style modifications including regular exercise and healthy diet in order to lose weight 5. JO: Try CPAP while sleeping tonight. Need outpatient sleep study for candidacy for CPAP/BiPAP 6. Intertrigo: Zinc oxide tropical BID Nystatin topical BID Keep Burton catheter on for the skin to heal Dr. Orosco-->continue routine wound/skin care, not surgical candidate. No need to follow up with him GI ppx: not currently indicated DVT ppx: Lovenox Code status: Full Prognosis: stable Disposition: inpatient med surg; PT OT for SNF placement Time Spent With Patient Time: Total time spent is greater than 50% in coordination of care (as documented) at patient's floor/unit and/or counseling patient: QUALITY Stroke Symptom Onset Unknown: No VTE Deep Vein Thrombosis/Pulmonary Embolism Present on Admission: No
[2021-03-23] MEDS: KETOROLAC 30 MG/ML VIAL IV PRN (09:55)
[2021-03-23] MEDS: SENNOSIDES 1 TABLET PO SCH (20:35)
[2021-03-24] MEDS: 0.9 % SODIUM CHLORIDE 10 ML SYRINGE IV SCH (04:58)
[2021-03-24] MEDS: INSULIN LISPRO 1 UNIT/0.01 ML UNIT SQ SCH ×2 (06:59→12:05)
[2021-03-24] MEDS: ZINC OXIDE TOPICAL SCH (07:42)
[2021-03-24] MEDS: CALAMINE TOPICAL SCH (07:42)
[2021-03-24] MEDS: DOCUSATE SODIUM 100 MG CAPSULE PO SCH (08:11)
[2021-03-24] MEDS: ENOXAPARIN 40 MG/0.4 ML SYRINGE SQ SCH (08:16)
[2021-03-24] MEDS: FUROSEMIDE 40 MG TABLET PO SCH (08:16)
[2021-03-24 08:28] LABS: Basophils # (Auto) 0.05 K/mcL (0.00-0.30); Basophils % (Auto) 0.7 % (0.0-2.0); Eosinophils # (Auto) 0.36 K/mcL (0.00-0.70); Eosinophils % (Auto) 4.9 % (0.0-7.0); Hemoglobin 10.8 g/dL (11.2-15.7); Lymphocytes % (Auto) 13.5 % (15.5-49.0); Mean Cell Volume 101.6 fL (80.0-100.0); Mean Corpuscular HGB Conc 27.7 g/dL (31.0-36.0); Mean Platelet Volume 10.2 fL (7.4-10.4); Monocytes % (Auto) 8.1 % (1.0-12.0); Neutrophils % (Auto) 72.8 % (38.0-78.0); Platelet Count 187 K/mcL (140-440); RBC 3.84 M/mcL (3.59-5.38); Red Cell Distribution Width 17.2 % (11.5-14.5); WBC 7.4 K/mcL (4.5-11.0)
--- NOTE | 2021-03-24 08:52 | Internal Med Progress Note ---
SUBJECTIVE Subjective Patient information: Note initiated : 03/24/21 at 8:49 am Service Date, if different from initiated Date: [] Patient: Sheila Hernández a 65 y/o F admitted on 03/19/21 for Shortness of breath. Chief Complaint: [CHF exacerbation] Interval history: History of present illness: Ms. Hernández is a 65 year old F medically noncompliant, CHF, type 2 diabetes, essential hypertension's, presenting with acute on chronic general body weakness and dyspnea. She is having symptoms of general body weakness and dyspnea for at least a year but th en it gets significantly worse since yesterday. She is complaining of orthopnea to the point that she cannot lay flat and she have to sleep on the chair. She is also committing of chronic bilateral leg swelling. She is not sure if she have any unintentional weight gain as she does not with herself. She denies any cough or sputum productions or wheezing. She denies any fever or chills or diaphoresis. She denies any change in her appetite. She is chronically bedbound. She denies any chest pain or palpitations or chest pressure. She uses oxygen at home 4 to 5 L/min baseline. Vital signs at ED presentation significant for tachycardia and tachypnea with heart rate and rate of breathing up to 120s and 30s beats per minute and breath per minute, respectively. Oxygen saturations in the mid 90s on 4 to 5 L of supplemental oxygen's. Labs significant for leukocytosis with WBC 11.8. Elevated serum BNP 1500 with unknown baseline. Serum troponin not elevated at 0.02. Initial Covid Celi negative, confirmatory Covid PCR test pending. Chest x-ray showing evidence of severe CHF with cardiomegaly and bilateral pleural edema. 03/20: Been placed on BiPAP overnight. Now this morning she's on 5L/min oxygen via nasal cannula. Afebrile. Mental status much improved. Denies SOB. Denies cough or sputum production. Denies wheezing. Denies general body weakness. PT OT: SNF placement. 03/21: Been on BiPAP overnight 12/5cm H2O with FiO2 35%. Afebrile overnight. 2D echocardiogram: LVEF 65-70%, indeterminant diastolic function. Mental status much improved. Denies SOB. Denies cough or sputum production. Denies wheezing. Denies general body weakness. c/o moderate generalized body pain. PT OT: SNF placement. 03/22: Been on BiPAP overnight 12/5cm H2O with FiO2 35%, now on nasal cannula. Afebrile overnight. Mental status much improved. Denies SOB. Denies cough or sputum production. Denies wheezing. Denies general body weakness. c/o moderate generalized body pain. PT OT: SNF placement. 03/23: Been on BiPAP overnight 12/5cm H2O with FiO2 35%, now on nasal cannula. Afebrile overnight. Mental status much improved. Denies SOB. Denies cough or sputum production. Denies wheezing. Denies general body weakness. c/o moderate generalized body pain. PT OT: SNF placement. 03/24: Been on BiPAP overnight 12/5cm H2O with FiO2 35%, now on nasal cannula. Afebrile overnight. Mental status much improved. Denies SOB. Denies cough or sputum production. Denies wheezing. Denies general body weakness. c/o moderate generalized body pain. PT OT: SNF placement. Constitutional Vitals: Vital Signs Temp Pulse Resp BP Pulse Ox 36.2 C 85 22 110/62 98 03/24/21 04:01 03/24/21 08:10 03/24/21 08:10 03/24/21 08:02 03/24/21 08:10 Period Temp Pulse Resp BP Sys/Lou Pulse Ox Last 24 Hr 36.2 C-36.5 C 63-90 19-35 90-121/50-75 79-100 Intake and Output 03/23/21 03/24/21 03/24/21 21:59 05:59 13:59 Intake Total 1120 250 Output Total 300 600 Balance 820 -350 Weight 154.72 kg Intake & Output: Intake & Output 03/23/21 03/24/21 03/24/21 21:59 05:59 13:59 Intake Total 1120 250 Output Total 300 600 Balance 820 -350 Weight 154.72 kg Intake: Oral 1120 250 Output: Urine Catheter Amount 300 600 Other: Meal Dinner Percent of Meal Consumed 50% Feeding Ability Independent Urine Appearance Clear Clear Small Blood Clots Small Blood Clots Uretheral (Burton) Clear Urine Color Dark Yellow Dark Yellow Urine Odor Normal Normal # Bowel Movements 0 General appearance: cooperative, morbidly obese and no acute distress Head Head exam: Present atraumatic and normocephalic Eye Eye exam: Present EOMI and PERRL ENT ENT exam: Present mucous membranes moist, normal exam and normal external ear exam Additional comments: Nasal cannula in place Neck Neck exam: Present normal inspection; Absent lymphadenopathy, tenderness and thyromegaly Respiratory Respiratory exam: Present decreased breath sounds; Absent accessory muscle use, respiratory distress and wheezes Cardiovascular Cardiovascular exam: Present normal rate and rhythm; Absent JVD GI/Abdominal GI/Abdominal exam: Present normal bowel sounds and soft; Absent organomegaly and tenderness Additional comments: Burton catheter Extremities Exam Extremities exam: Present full ROM, normal capillary refill and normal inspection; Absent tenderness Neurological Exam Neurological exam: Present alert, CN II-XII intact and oriented X3; Absent motor sensory deficit Psychiatric Psychiatric exam: Present normal affect and normal mood; Absent anxious and depressed Skin Skin exam: Present dry, erythema, intact and rash OBJ DATA Labs CBC & Chem 7: 03/24/21 05:09 03/23/21 05:40 Labs: Abnormal Lab Results 03/24/21 03/23/21 03/23/21 05:09 05:40 05:40 Hgb 10.8 L 11.0 L MCV 101.6 H 101.3 H MCHC 27.7 L 27.8 L RDW 17.2 H 17.2 H Lymph % (Auto) 13.5 L 13.2 L Lymph # (Auto) 1.00 L 1.02 L Chloride 88 L Carbon Dioxide 45 H* Anion Gap Creatinine 0.5 L Calcium Albumin 2.8 L Globulin 4.5 H Albumin/Globulin Ratio 0.6 L 03/22/21 03/22/21 05:02 05:02 Hgb 10.2 L MCV 100.5 H MCHC 26.9 L RDW 17.3 H Lymph % (Auto) 14.0 L Lymph # (Auto) 1.15 L Chloride 92 L Carbon Dioxide 44 H* Anion Gap 6.0 L Creatinine Calcium 8.5 L Albumin 2.6 L Globulin 4.3 H Albumin/Globulin Ratio 0.6 L Meds: Medications Acetaminophen (Acetaminophen 325 Mg Tablet) 650 mg PO Q6HP PRN; Protocol PRN Reason: Per Pain Protocol/Fever > 101 Last Admin: 03/23/21 17:56 Dose: 650 mg Documented by: Albuterol/Ipratropium (Ipratropium/Albuterol 3 Ml Ampul.Neb) 3 ml NEB Q4HRT PRN PRN Reason: Wheezing Calamine (Calamine/Zinc Oxide 1 Dose Lotion) 1 dose TOPICAL BID [facility] [place] Last Admin: 03/24/21 07:42 Dose: Not Given Documented by: Carvedilol (Carvedilol 3.125 Mg Tablet) 3.125 mg PO BIDCC [facility] [place] Last Admin: 03/23/21 17:56 Dose: 3.125 mg Documented by: Dextrose (Dextrose 50% 50 Ml Vial) 0 ml IV UD PRN PRN Reason: Hypoglycemia Diagnostic Test (Pha) (Accu-Chek 1 Each Strip) 1 each FS BID [facility] [place] Last Admin: 03/24/21 06:59 Dose: 1 each Documented by: Docusate Sodium (Docusate Sodium 100 Mg Capsule) 100 mg PO BID [facility] [place] Last Admin: 03/24/21 08:11 Dose: Not Given Documented by: Enoxaparin Sodium (Enoxaparin 40 Mg/0.4 Ml Syringe) 40 mg SQ DAILY [facility] [place] Last Admin: 03/24/21 08:16 Dose: 40 mg Documented by: Furosemide (Furosemide 40 Mg Tablet) 40 mg PO BIDD [facility] [place] Last Admin: 03/24/21 08:16 Dose: 40 mg Documented by: Glucose (Dextrose 31 Gm Oral.Susp) 15 gm PO PRN PRN PRN Reason: Hypoglycemia Guaifenesin (Guaifenesin/Dextromethorphan Oral Emelyn) 10 ml PO Q4HP PRN PRN Reason: Cough Insulin Human Lispro (Insulin Lispro 1 Unit/0.01 Ml Unit) 0 unit SQ ACHS [facility] [place]; Protocol Last Admin: 03/24/21 06:59 Dose: Not Given Documented by: Lisinopril (Lisinopril 5 Mg Tablet) 5 mg PO DAILY [facility] [place] Last Admin: 03/23/21 08:51 Dose: 5 mg Documented by: Metoprolol Tartrate (Metoprolol Tartrate 5 Mg/5 Ml Vial) 5 mg IV Q5M PRN PRN Reason: Tachyarrhythmias Last Admin: 03/20/21 10:12 Dose: 5 mg Documented by: Nystatin (Nystatin Powder Bottle 15gm) 1 dose TOPICAL BID [facility] [place] Last Admin: 03/23/21 20:42 Dose: 1 dose Documented by: Ondansetron HCl (Ondansetron 4 Mg/2 Ml Vial) 4 mg IV Q6HP PRN PRN Reason: Nausea And Vomiting Senna (Sennosides 1 Tablet) 2 tab PO HS [facility] [place] Last Admin: 03/23/21 20:35 Dose: Not Given Documented by: Sodium Chloride (0.9 % Sodium Chloride 10 Ml Syringe) 10 ml IV Q8 [facility] [place] Last Admin: 03/24/21 04:58 Dose: 10 ml Documented by: Trazodone HCl (Trazodone Hcl 50 Mg Tablet) 50 mg PO HSP PRN PRN Reason: Insomnia Last Admin: 03/23/21 20:43 Dose: 50 mg Documented by: A/P Assessment and plan (1) CHF exacerbation: Status: Acute Qualifiers: Heart failure type: unspecified Qualified Code(s): I50.9 - Heart failure, unspecified (2) Acute and chronic respiratory failure with hypoxia: Status: Acute (3) On home oxygen therapy: Status: Acute (4) Morbid obesity: Status: Acute (5) T2DM (type 2 diabetes mellitus): Status: Acute (6) Essential (primary) hypertension: Status: Acute (7) Medical non-compliance: Status: Acute (8) JO (obstructive sleep apnea): Status: Acute (9) Intertrigo: Status: Acute Narrative A/P Narrative: Assessment and Plans: 1. Acute on chronic respiratory failure secondary to CHF exacerbation: Stays in inpatient med surg telemetry Intake and output Daily weigh 2L/day fluid intake Supplemental oxygen therapy titrate to achieve spo2 >=92%. Home oxygen requirement 4-5L/min. Try CPAP while sleeping tonight. Lasix 40mg PO BID Coreg 3.125mg PO BID Lisinopril 2D echocardiogram-->LVEF 65-70%, indeterminant diastolic function PT OT evaluation--> SNF placement 2. T2DM: HgA1c Hold any oral hypoglycemics Low dose SSI AC HS Accu Chek qSHIFT Hypoglycemia protocol Diabetic diet 3. Essential HTN: Lasix 40mg IV BID Coreg 3.125mg PO BID Lisinopril Aldactone not indicated-->LVEF>40% 4. Morbid obesity: [employer] patient on life style modifications including regular exercise and healthy diet in order to lose weight 5. JO: Try CPAP while sleeping tonight. Need outpatient sleep study for candidacy for CPAP/BiPAP 6. Intertrigo: Zinc oxide tropical BID Nystatin topical BID Keep Burton catheter on for the skin to heal Dr. Orosco-->continue routine wound/skin care, not surgical candidate. No need to follow up with him GI ppx: not currently indicated DVT ppx: Lovenox Code status: Full Prognosis: stable Disposition: inpatient med surg; PT OT for SNF placement Time Spent With Patient Time: Total time spent is greater than 50% in coordination of care (as documented) at patient's floor/unit and/or counseling patient: QUALITY Stroke Symptom Onset Unknown: No VTE Deep Vein Thrombosis/Pulmonary Embolism Present on Admission: No
[2021-03-24 09:32] LABS: ALT/SGPT 12 U/L (<40); AST/SGOT 19 U/L (<32); Albumin 2.6 gm/dL (3.2-5.2); Albumin/Globulin Ratio 0.6 (1.0-2.3); Alkaline Phosphatase 80 U/L (39-117); Anion Gap 0 (8.0-16.0); Bilirubin,Total 0.6 mg/dL (0.1-1.0); Blood Urea Nitrogen 18 mg/dL (8-23); Calcium 8.7 mg/dL (8.6-10.4); Carbon Dioxide 48 mmol/L (22-30); Chloride 93 mmol/L (96-108); Globulin 4.5 gm/dL (2.2-3.7); Glomerular Filtration Rate 100; Glucose 71 mg/dL (70-105)
[2021-03-24] MEDS: NYSTATIN POWDER BOTTLE 15GM TOPICAL SCH (10:53)
[2021-03-24] MEDS: CARVEDILOL 3.125 MG TABLET PO SCH (11:09)
--- NOTE | 2021-03-24 11:47 | Discharge Summary ---
Discharge Provider Provider Patient information: Note initiated : 03/24/21 at 11:43 am Service Date, if different from initiated Date: [] Patient: Sheila Hernández 65 y/o F admitted on 03/19/21 for Shortness of breath. Chief Complaint: [CHF exacerbation] Date of admission: 03/19/21 17:25 Discharge date: 03/24/21 Consults: 03/19/21 Consult to Physician [CONS] Stat Comment: Consulting Provider: Marty Marina Reason For Exam: Physician to Consult 03/20/21 15:01 Consult to Physician [CONS] Routine Comment: [facility] Consulting Provider: Zaid Orosco Reason For Exam: Physician to Consult Discharge Meds Discharge Medications Home Medications calamine-zinc oxide 1 dose TOPICAL BID 14 Days ml 03/24/21 [Rx Last Taken Unknown] carvedilol 3.125 mg PO BIDCC 30 Days #60 tab 03/24/21 [Rx Last Taken Unknown] dextromethorphan-guaifenesin [Robafen DM Cough] 10 ml PO Q4HP PRN 14 Days ml 03/24/21 [Rx Last Taken Unknown] furosemide 40 mg PO BIDD 30 Days #60 tab 03/24/21 [Rx Last Taken Unknown] lisinopril 5 mg PO DAILY 30 Days tab 03/24/21 [Rx Last Taken Unknown] nystatin [Nystop] 1 dose TOPICAL BID 14 Days g 03/24/21 [Rx Last Taken Unknown] COURSE Hospital Course Hospital course: Patient was admitted on March 19, 2021 for acute on chronic respiratory failure with hypoxia secondary to CHF exacerbations and suspected obstructive sleep apnea. 2D echocardiogram was performed and it shows normal left ventricular function with LVEF 65 to 70%. Diastolic dysfunction could not be ruled out due to poor quality of the study. Patient was being treated with BiPAP at night and supplemental oxygen during the day. Medical therapy including beta-jonathan Coreg, and diuretics Lasix first in terms of IV which was subsequently switched to p.o., lisinopril, will or offered. Strict intake and output measurement, daily weight, as well as fluid restrictions were all implemented as well. Patient was also being diagnosed with intertrigo with nystatin and zinc oxide cream and powder being offered. By March 24, 2021, patient has reached clinical stability. Physical and occupational therapist evaluated the patient and determined the patient is appropriate for residential placement. Patient is being accepted by residential on March 24, 2001 and being discharged there. All questions were answered prior to patient being physically discharged. Discharge diagnosis: CHF exacerbation Time Spent with Patient Time attestation: Total time spent providing and/or coordinating discharge services: Patient was admitted on March 19, 2021 for acute on chronic respiratory failure with hypoxia secondary to CHF exacerbations and suspected obstructive sleep apnea. 2D echocardiogram was performed and it shows normal left ventricular function with LVEF 65 to 70%. Diastolic dysfunction could not be ruled out due to poor quality of the study. Patient was being treated with BiPAP at night and supplemental oxygen during the day. Medical therapy including beta-jonathan Coreg, and diuretics Lasix first in terms of IV which was subsequently switched to p.o., lisinopril, will or offered. Strict intake and output measurement, daily weight, as well as fluid restrictions were all implemented as well. Patient was also being diagnosed with intertrigo with nystatin and zinc oxide cream and powder being offered. By March 24, 2021, patient has reached clinical stability. Physical and occupational therapist evaluated the patient and determined the patient is appropriate for residential placement. Patient is being accepted by residential on March 24, 2001 and being discharged there. All questions were answered prior to patient being physically discharged. EXAM Constitutional Vitals: Temp Pulse Resp BP Pulse Ox 36.2 C 90 24 H 112/74 90 03/24/21 04:01 03/24/21 11:10 03/24/21 11:10 03/24/21 11:10 03/24/21 11:10 General appearance: cooperative, morbidly obese and no acute distress Head Head exam: Present atraumatic and normocephalic Eye Eye exam: Present EOMI and PERRL ENT ENT exam: Present mucous membranes moist, normal exam and normal external ear exam Additional comments: nasal cannula in place Neck Neck exam: Present normal inspection; Absent lymphadenopathy, tenderness and thyromegaly Respiratory Respiratory exam: Present decreased breath sounds; Absent accessory muscle use, respiratory distress and wheezes Cardiovascular Cardiovascular exam: Present normal rate and rhythm; Absent JVD GI/Abdominal GI/Abdominal exam: Present normal bowel sounds and soft; Absent organomegaly and tenderness Additional comments: dewitt catheter in place Extremities Exam Extremities exam: Present full ROM, normal capillary refill and normal inspection; Absent tenderness Neurological Exam Neurological exam: Present alert, CN II-XII intact and oriented X3; Absent motor sensory deficit Psychiatric Psychiatric exam: Present normal affect and normal mood; Absent anxious and depressed Skin Skin exam: Present dry, erythema, intact and rash Discharge Data Data Completed and Pending Labs on day of discharge: Labs from last 24 hours 03/24/21 03/24/21 05:09 05:09 WBC 7.4 RBC 3.84 Hgb 10.8 L Hct 39.0 MCV 101.6 H MCH 28.1 MCHC 27.7 L RDW 17.2 H Plt Count 187 MPV 10.2 Neut % (Auto) 72.8 Lymph % (Auto) 13.5 L Lassen % (Auto) 8.1 Eos % (Auto) 4.9 Baso % (Auto) 0.7 Lymph # (Auto) 1.00 L Lassen # (Auto) 0.60 Eos # (Auto) 0.36 Baso # (Auto) 0.05 Absolute Neutrophils 5.39 Sodium 141 Potassium 4.2 Chloride 93 L Carbon Dioxide 48 H* Anion Gap 0 L BUN 18 Creatinine 0.5 L GFR Calculation 100 Glucose 71 Calcium 8.7 Magnesium 1.8 Total Bilirubin 0.6 AST 19 ALT 12 Alkaline Phosphatase 80 Total Protein 7.1 Albumin 2.6 L Globulin 4.5 H Albumin/Globulin Ratio 0.6 L Discharge Plan Patient/Caregiver Discharge Instructions Activity: increase activity as tolerated Diet: Consistent Carbohydrate Prescriptions: New furosemide 40 mg Tablet 40 mg PO BIDD 30 Days Qty: 60 RF: 0 dextromethorphan-guaifenesin [Robafen DM Cough] 10-100 mg/5 mL Liquid 10 ml PO Q4HP PRN (Reason: Cough) 14 Days RF: 0 carvedilol 3.125 mg Tablet 3.125 mg PO BIDCC 30 Days Qty: 60 RF: 0 lisinopril 5 mg Tablet 5 mg PO DAILY 30 Days RF: 0 nystatin [Nystop] 100,000 unit/gram Powder 1 dose topical BID 14 Days RF: 0 calamine-zinc oxide 8-8 % Lotion 1 dose topical BID 14 Days RF: 0 Follow Up Plan Patient Disposition: Xfer SNF Rehab Potential: Good I certify that the patient requires SNF services: Yes Overall status at discharge: patient is back to baseline Discharge Orders: Discharge Order (Routine); Ordered 03/24/21 Ordered By: Marty Marina QUALITY VTE Deep Vein Thrombosis/Pulmonary Embolism Present on Admission: No
[2021-03-24] MEDS: LISINOPRIL 5 MG TABLET PO SCH (12:05)
== END 2021-03-24 14:50 | DRG 291 ==
LOC: ED 10:11 → MEDSUR 17:25 → ICU 20:08
PROVIDERS: ADMIT Internal Medicine; ATTEND Internal Medicine

== ENCOUNTER 2022-11-23 13:13 | Inpatient (IN) ==
--- NOTE | 2022-11-23 13:52 | Emergency Department Note ---
HPI General Chief complaint: Altered Mental Status Stated complaint: AMS Time Seen by Provider: 11/23/22 13:35 Source: EMS Mode of arrival: EMS Limitations: no limitations History of Present Illness HPI Narrative: Narrative: This is a 67-year-old female presenting the emergency department with her family with the complaints of altered mental status, weakness, somnolence. The patient had been admitted to [facility] over in [facility] on 11/10/2022 for acute on chronic respiratory failure with hypercapnia which she also ended up having COVID-19 and ended up requiring intubation. She was extubated and will be discharged on 11/16/2022 to a long-term [place] [facility] home. Her family reports that ever since that she has been at the skilled nursing she has been much more confused and acting like she has dementia although they report that she does not have dementia. Her mental status seems to wax and wane even when I am in the room evaluating her she seems very alert and able answer all my questions at 1 point and then when I asked her about her knee pain and if it is hurting right now she says yesterday so there does seem to be a little bit of confusion going on at the least. She does have a catheter in that has apparently been and ever since she was discharged from the hospital. The patient has not noticed any fevers has not had any chest pain or shortness of breath although in the last couple days she has had a bit of a sore throat and some laryngitis. She reports some mild abdominal pain but cannot point to where she is having it. She did fall yesterday and reports that she hit her head but is not having a headache and does not have any pain on her scalp anywhere and she also fell on her knees although she is not having any point tenderness but is having pain when I move them through passive range of motion. Related Data Previous Rx's Medication Instructions Recorded hydrocodone 5 mg-acetaminophen 325 1 - 2 tab PO Q6H PRN pain #12 tabs 07/28/22 mg tablet Allergies Allergy/AdvReac Type Severity Reaction Status Date / Time No Known Drug Allergies Allergy Verified 11/23/22 13:26 Review of Systems ROS ROS Narrative: Narrative: PFSH Narrative Patient History Narrative: Narrative: Medical/Surgical/Family History All Active Problems (Updated 11/23/22 @ 21:44 by Boston Nugent PA-C) Abnormal vaginal bleeding in postmenopausal patient (Acute) Abdominal pain, acute, right lower quadrant (Acute) Hypercapnia (Acute) Acute UTI (Acute) AMS (altered mental status) (Acute) Intertrigo (Acute) JO (obstructive sleep apnea) (Acute) Medical non-compliance (Acute) Essential (primary) hypertension (Acute) T2DM (type 2 diabetes mellitus) (Acute) Morbid obesity (Acute) On home oxygen therapy (Acute) Acute and chronic respiratory failure with hypoxia (Acute) CHF exacerbation (Acute) Social History Smoking Status: Never smoker Exam Narrative Narrative: Narrative: General Limitations: no limitations Course Vital Signs Vital signs: Vital Signs Temperature 98.7 F 11/23/22 13:22 Pulse Rate 58 L 11/23/22 13:22 Respiratory Rate 20 11/23/22 13:22 Blood Pressure 91/69 11/23/22 13:22 Pulse Oximetry (%) 100 11/23/22 13:22 Oxygen Delivery Method Room Air 11/23/22 13:22 Temperature 98.7 F 11/23/22 13:22 Pulse Rate 111 H 11/23/22 20:02 Respiratory Rate 24 H 11/23/22 20:02 Blood Pressure 115/72 11/23/22 20:02 Pulse Oximetry (%) 98 11/23/22 20:02 Oxygen Delivery Method BiPAP 11/23/22 19:31 MDM MDM Narrative Medical decision making narrative: Narrative: Differential diagnosis: Hypercapnia, intracranial bleed, pneumonia, UTI, hepatic encephalopathy, sepsis. Independent lab ordered and reviewed by me: CBC shows mild leukocytosis at 11.5 with left shift venous blood gas shows hypercapnia with CO2 of 65.9, CMP shows no significant derangement slight increase in BUN, proBNP is elevated at 2137 UA is suggestive of urinary tract infection, chest x-ray shows no infiltrates but vascular congestion, CT of the brain and neck negative for acute abnormalities, bilateral knee x-ray show no acute fracture per radiology. Medications ordered: 40 IV Lasix ordered for CHF, BiPAP ordered for hypercapnia, 1 g Rocephin ordered for UTI. Disposition decision making I spoke with Dr. Sherwood who agreed to admit the patient for hypercapnia on BiPAP UTI CHF exacerbation and altered mental status. Lab Data 11/23/22 14:45 11/23/22 14:45 Labs: Lab Results 11/23/22 11/23/2223 Range/Units 14:45 14:45 14:45 WBC 11.5 H (4.5-11.0) K/mcL RBC 4.52 (3.59-5.38) M/mcL Hgb 13.2 (11.2-15.7) g/dL Hct 42.4 (34.1-44.9) % MCV 93.8 (80.0-100.0) fL MCH 29.2 (26.0-34.0) pg MCHC 31.1 (31.0-36.0) g/dL RDW 14.9 H (11.5-14.5) % Plt Count 227 (140-440) K/mcL MPV 11.2 (8.8-12.5) fL Immature Gran % (Auto) 0.6 H (0.0-0.5) % Neut % (Auto) 79.9 H (38.0-78.0) % Lymph % (Auto) 10.2 L (15.5-49.0) % [place] % (Auto) 7.5 (1.0-12.0) % Eos % (Auto) 1.5 (0.0-7.0) % Baso % (Auto) 0.3 (0.0-2.0) % Lymph # (Auto) 1.17 L (1.50-4.80) K/mcL [place] # (Auto) 0.86 (0.10-0.90) K/mcL Eos # (Auto) 0.17 (0.00-0.70) K/mcL Baso # (Auto) 0.03 (0.00-0.30) K/mcL Immature Gran # 0.07 H (0.00-0.05) K/mcl Absolute Neutrophils 9.17 H (1.80-8.00) K/mcL ABG Methemoglobin 0.3 L (0.4-1.5) % VBG pH 7.38 (7.32-7.42) U VBG pCO2 65.9 H* (41.0-51.0) mmHg VBG pO2 31.7 (25.0-40.0) mmHg VBG HCO3 38.0 H (24.0-28.0) mmol/L VBG Total CO2 40.0 H (25.0-29.0) mmol/L VBG O2 Saturation 57.6 (40.0-70.0) % VBG Base Excess 10 H (-2-3) Carboxyhemoglobin 4.1 H (0.0-1.5) % THgb Total Hemoglobin 14.4 (12.0-15.0) gm/Dl Sodium 148 H (133-145) mmol/L Potassium 4.1 (3.3-5.1) mmol/L Chloride 101 (96-108) mmol/L Carbon Dioxide 39 H (22-30) mmol/L Anion Gap 8.0 (8.0-16.0) BUN 28 H (8-23) mg/dL Creatinine 0.6 (0.6-1.1) mg/dL GFR Calculation 93 Glucose 100 (70-105) mg/dL Calcium 9.2 (8.6-10.4) mg/dL Total Bilirubin 0.8 (0.1-1.0) mg/dL AST 17 (<32) U/L ALT 20 (<40) U/L Alkaline Phosphatase 70 (39-117) U/L Ammonia (11-51) umol/L NT-Pro-B Natriuret Pep 2137.0 H (<125.0) pg/mL Total Protein 6.6 (5.9-8.4) gm/dL Albumin 3.5 (3.2-5.2) gm/dL Globulin 3.1 (2.2-3.7) gm/dL Albumin/Globulin Ratio 1.1 (1.0-2.3) Urine Color Urine Appearance (Clear) Urine pH (5.0-9.0) Ur Specific Ages [place] (1.000-1.035) Urine Protein (Negative) mg/dL Urine Glucose (UA) (Negative) mg/dL Urine Ketones (Negative) mg/dL Urine Occult Blood (Negative) mg/dL Urine Nitrate (Negative) Urine Bilirubin (Negative) mg/dL Urine Urobilinogen mg/dL Ur Leukocyte Esterase (Negative) /uL Urine RBC (0-3) /hpf Urine WBC (0-4) /hpf Ur Squamous Epith Cells (0-4) /hpf Urine Bacteria (0) /hpf Urine Mucus (None) /hpf Ur Culture Indicated? 11/23/22 11/23/22 Range/Units 14:45 15:45 WBC (4.5-11.0) K/mcL RBC (3.59-5.38) M/mcL Hgb (11.2-15.7) g/dL Hct (34.1-44.9) % MCV (80.0-100.0) fL MCH (26.0-34.0) pg MCHC (31.0-36.0) g/dL RDW (11.5-14.5) % Plt Count (140-440) K/mcL MPV (8.8-12.5) fL Immature Gran % (Auto) (0.0-0.5) % Neut % (Auto) (38.0-78.0) % Lymph % (Auto) (15.5-49.0) % [place] % (Auto) (1.0-12.0) % Eos % (Auto) (0.0-7.0) % Baso % (Auto) (0.0-2.0) % Lymph # (Auto) (1.50-4.80) K/mcL [place] # (Auto) (0.10-0.90) K/mcL Eos # (Auto) (0.00-0.70) K/mcL Baso # (Auto) (0.00-0.30) K/mcL Immature Gran # (0.00-0.05) K/mcl Absolute Neutrophils (1.80-8.00) K/mcL ABG Methemoglobin (0.4-1.5) % VBG pH (7.32-7.42) U VBG pCO2 (41.0-51.0) mmHg VBG pO2 (25.0-40.0) mmHg VBG HCO3 (24.0-28.0) mmol/L VBG Total CO2 (25.0-29.0) mmol/L VBG O2 Saturation (40.0-70.0) % VBG Base Excess (-2-3) Carboxyhemoglobin (0.0-1.5) % THgb Total Hemoglobin (12.0-15.0) gm/Dl Sodium (133-145) mmol/L Potassium (3.3-5.1) mmol/L Chloride (96-108) mmol/L Carbon Dioxide (22-30) mmol/L Anion Gap (8.0-16.0) BUN (8-23) mg/dL Creatinine (0.6-1.1) mg/dL GFR Calculation Glucose (70-105) mg/dL Calcium (8.6-10.4) mg/dL Total Bilirubin (0.1-1.0) mg/dL AST (<32) U/L ALT (<40) U/L Alkaline Phosphatase (39-117) U/L Ammonia 23 (11-51) umol/L NT-Pro-B Natriuret Pep (<125.0) pg/mL Total Protein (5.9-8.4) gm/dL Albumin (3.2-5.2) gm/dL Globulin (2.2-3.7) gm/dL Albumin/Globulin Ratio (1.0-2.3) Urine Color Kristine Urine Appearance Hazy A (Clear) Urine pH 5.0 (5.0-9.0) Ur Specific Ages [place] 1.024 (1.000-1.035) Urine Protein Negative (Negative) mg/dL Urine Glucose (UA) Negative (Negative) mg/dL Urine Ketones Negative (Negative) mg/dL Urine Occult Blood >=1.0 A (Negative) mg/dL Urine Nitrate Negative (Negative) Urine Bilirubin Negative (Negative) mg/dL Urine Urobilinogen Negative mg/dL Ur Leukocyte Esterase 250 A (Negative) /uL Urine RBC 163 H (0-3) /hpf Urine WBC 52 H (0-4) /hpf Ur Squamous Epith Cells 1 (0-4) /hpf Urine Bacteria None (0) /hpf Urine Mucus Few A (None) /hpf Ur Culture Indicated? yes EKG Data EKG #1: EKG results narrative: ECG shows atrial fibrillation 115 beats minute, narrow QRS normal QTc. There is no signs Brugada, Pmksw-Nbcpzthpi-Fexwb or HOCM. No ST segment deviations or hyperacute T waves. Interpretation is atrial fibrillation Discharge Plan Patient/Caregiver Discharge Instructions Pt seen by CERAMICS TEST ENGINEER/PA only: Yes Clinical Impression: CHF exacerbation, Hypercapnia, Acute UTI, AMS (altered mental status) Patient Disposition: Xfer As Inpt ([facility]) Discharge Date/Time: 11/23/22 21:37
[2022-11-23 15:15] LABS: ABG Methemoglobin 0.3 % (0.4-1.5); Total Hemoglobin 14.4 gm/Dl (12.0-15.0); VBG Base Excess 10 (-2-3); VBG Oxygen Saturation 57.6 % (40.0-70.0); VBG PCO2 65.9 mmHg (41.0-51.0); VBG PH 7.38 U (7.32-7.42); VBG PO2 31.7 mmHg (25.0-40.0)
[2022-11-23 15:16] LABS: Basophils # (Auto) 0.03 K/mcL (0.00-0.30); Basophils % (Auto) 0.3 % (0.0-2.0); Eosinophils # (Auto) 0.17 K/mcL (0.00-0.70); Eosinophils % (Auto) 1.5 % (0.0-7.0); Hematocrit 42.4 % (34.1-44.9); Hemoglobin 13.2 g/dL (11.2-15.7); Lymphocytes # (Auto) 1.17 K/mcL (1.50-4.80); Lymphocytes % (Auto) 10.2 % (15.5-49.0); Mean Cell Volume 93.8 fL (80.0-100.0); Mean Corpuscular HGB Conc 31.1 g/dL (31.0-36.0); Mean Platelet Volume 11.2 fL (8.8-12.5); Monocytes # (Auto) 0.86 K/mcL (0.10-0.90); Monocytes % (Auto) 7.5 % (1.0-12.0); Neutrophils % (Auto) 79.9 % (38.0-78.0); Platelet Count 227 K/mcL (140-440); RBC 4.52 M/mcL (3.59-5.38); Red Cell Distribution Width 14.9 % (11.5-14.5); WBC 11.5 K/mcL (4.5-11.0)
--- NOTE | 2022-11-23 15:31 | Cat Scan Report ---
History: Fell, altered mental status, anticoagulated TECHNIQUE: The brain was imaged without contrast in axial plane at 2.5 mm intervals. Sagittal and coronal reformats were created. The radiation exposure was limited using dose reduction technology. FINDINGS: There is minor atrophy in both frontal lobes and subtle areas of decreased attenuation in the white matter in both frontal lobes, consistent with age-related degenerative change. There is no intracranial hemorrhage. No edema, infarct or mass effect are present. The ventricles are normal in size. No abnormal extra-axial fluid collection is present. Bone windows show no skull fracture. Visualized sinuses are clear. IMPRESSION: Normal exam Boston Nugent was called with the report Interpreted and Authenticated by: Wu Nunez 11/23/22
--- NOTE | 2022-11-23 15:34 | Cat Scan Report ---
History: Fell, altered mental status, anticoagulated TECHNIQUE: The neck was imaged without contrast in axial plane at 2.5 mm intervals. Sagittal and coronal reformats were created. The radiation exposure was limited using dose reduction technology. FINDINGS: There is a mild scoliotic curvature with the convexity to the left in the upper neck and neck is also held in flexion. There is no fracture or evidence of acute spinal injury. Moderate disc space narrowing is present at C5-6 with milder narrowing at C3-4 and C4-5. There are anterior spurs at those levels. Is also spur formation along the posterior borders of the C4-5 and C5-6 discs. Severe arthritis is present in the right side facet at C4-5 with moderate arthritis in the right facet at C3-4. There is mild arthritis in left side facets at same levels. There is mild stenosis right-sided neural foramina. No paraspinal hematoma or mass are present. IMPRESSION: No fracture Degenerative disc disease and arthritis Boston Raffi was called with the report Interpreted and Authenticated by: Wu Nunez 11/23/22
[2022-11-23 15:40] LABS: ALT/SGPT 20 U/L (<40); AST/SGOT 17 U/L (<32); Albumin 3.5 gm/dL (3.2-5.2); Albumin/Globulin Ratio 1.1 (1.0-2.3); Alkaline Phosphatase 70 U/L (39-117); Bilirubin,Total 0.8 mg/dL (0.1-1.0); Blood Urea Nitrogen 28 mg/dL (8-23); Calcium 9.2 mg/dL (8.6-10.4); Carbon Dioxide 39 mmol/L (22-30); Chloride 101 mmol/L (96-108); Globulin 3.1 gm/dL (2.2-3.7); Glomerular Filtration Rate 93; Glucose 100 mg/dL (70-105)
--- NOTE | 2022-11-23 15:55 | XRay Report ---
History: Fell with bilateral knee pain FINDINGS: Three views were obtained of each knee separately. There is no acute fracture or dislocation. Bones are osteoporotic. There is severe osteoarthritis in the left with moderate arthritis in the right knee. Patient has large bilateral joint effusions. IMPRESSION: No fracture Arthritis Joint effusions Interpreted and Authenticated by: Wu Nunez 11/23/22
--- NOTE | 2022-11-23 15:58 | XRay Report ---
HISTORY: Cough, altered mental status FINDINGS: Lung volumes are small due to poor inspiration. The heart is moderately enlarged but magnified by portable technique and poor inspiration. There are ill-defined alveolar opacities throughout both lungs. The vessels are engorged. There is no pleural effusion. Comparison with the prior x-ray done on 03/19/21 shows the congestive heart failure is less severe at this time. IMPRESSION: Poor inspiration with pulmonary vascular congestion Interpreted and Authenticated by: Wu Nunez 11/23/22
[2022-11-23 16:40] LABS: Appearance,Urine HAZY (Clear); Bilirubin,Urine Negative (Negative); Color,Urine AMBER; Culture Indicated,Urine yes; Glucose,Urine (UA) Negative (Negative); Ketones,Urine Negative (Negative); Leukocyte Esterase,Urine 250 /uL (Negative); Mucus,Urine FEW /hpf; Nitrate,Urine Negative (Negative); Protein,Urine Negative (Negative); Specific Gravity,Urine 1.024 (1.000-1.035); Urine Blood >=1.0 mg/dL (Negative); Urine RBC 163 /hpf (0-3); Urine Squamous Epithelial Cell 1 /hpf (0-4); Urine WBC 52 /hpf (0-4); Urobilinogen,Urine Negative
[2022-11-23] MEDS ORDERED: LORazepam 2 MG/ML VIAL IV ONE (16:57)
[2022-11-23] MEDS ORDERED: cefTRIAXone 1 GM VIAL IV ONE (16:57)
[2022-11-23] MEDS ORDERED: FUROSEMIDE 40 MG/4 ML VIAL IV ONE (18:12)
--- NOTE | 2022-11-23 20:13 | Internal Med History&Physical ---
HPI History of Present Illness Patient information: Note initiated : 11/23/22 at 8:08 pm Service Date, if different from initiated Date: [] Patient: Sheila Joseph 67 y/o F admitted on for AMS. Chief Complaint: [] History of present illness: Patient is a 67 years old female with multiple comorbidities including DM2, HTN, CHF, JO on CPAP, morbid obesity, chronic hypoxic resp failure on 3L NC O2 presented with altered mental status, confusion, somnolence and generalized weakness. Patient was admitted to [facility] on 11/10/2022 for COVID-19, respiratory failure and was intubated for 3 to 4 days, she was discharged on 11/17/1902/28/2023 to alf facility. Daughter reports she was also diagnosed with A-fib during that admission. According to family patient was doing better for couple days however then she was noted to be more confused, increased somnolence, mental status would wax and wane. Daughter reports patient had soft voice, she was unable to clear her throat due to weakness. At the facility urine culture was done but results are not back yet. On presentation patient was somnolent and confused. Patient was tachypneic and tachycardic with heart rate in 130s-150s. VBG showed pH of 7.38, PCO2 65. WBC 11.5, sodium 148, BNP 2137, normal renal functions. UA was positive for blood, leukocyte esterase, RBCs and WBCs. Chest x-ray showed vascular congestion. Rapid COVID and flu test negative. CT head negative for acute finding. EKG showed A-fib with RVR, ventricular rate 115 bpm. Patient was placed on BiPAP and will be admitted to PCU for acute acute respiratory failure with hyper capnia, acute encephalopathy, UTI, A-fib with RVR and CHF. Review of systems 12 point review of system was obtained, it was limited due to patient Physical examination Morbidly obese 67 years old female, somnolent, would awake to verbal stimuli Normocephalic, atraumatic Chest with mild Rales bilaterally, on BiPAP S1 and S2, irregularly irregular, no murmurs heard, trace peripheral edema Abdomen is obese, soft and nontender Lethargic and somnolent but arousable, no focal deficits Does not appear to be agitated Assessment and plan Acute hypercapnic and hypoxic respiratory failure Altered mental status Acute encephalopathy, secondary to hypercapnia A-fib with RVR Congestive heart failure UTI Obstructive sleep apnea on CPAP Diabetes mellitus 2 Hypertension Morbid obesity Plan Admit to PCU Repeat ABG now and in the morning Continue BiPAP throughout CT head is negative Start patient on IV diltiazem, mag level pending Keep K > 4 and Mg >2 Strict I's and O's, daily weight Echocardiogram pending IV Lasix 40 mg daily Ceftriaxone for UTI, follow urine culture DVT and GI prophylaxis in place Full code Critical care time 55 minutes PFSH PFSH All Active Problems (Updated 07/28/22 @ 15:23 by Sugar Stout DO) Abnormal vaginal bleeding in postmenopausal patient (Acute) Abdominal pain, acute, right lower quadrant (Acute) Intertrigo (Acute) JO (obstructive sleep apnea) (Acute) Medical non-compliance (Acute) Essential (primary) hypertension (Acute) T2DM (type 2 diabetes mellitus) (Acute) Morbid obesity (Acute) On home oxygen therapy (Acute) Acute and chronic respiratory failure with hypoxia (Acute) CHF exacerbation (Acute) Social History smoking status: Never smoker MEDS/ALLERGIES Home Medications and Allergies Home Medications Medication Instructions Recorded Confirmed Type hydrocodone 5 mg-acetaminophen 325 1 - 2 tab PO Q6H PRN pain #12 tabs 07/28/22 Rx mg tablet Allergies Allergy/AdvReac Type Severity Reaction Status Date / Time No Known Drug Allergies Allergy Verified 11/23/22 13:26 EXAM Constitutional Vitals: Temp Pulse Resp BP Pulse Ox O2 Del Method 98.7 F 111 H 24 H 115/72 98 BiPAP 11/23/22 13:22 11/23/22 20:02 11/23/22 20:02 11/23/22 20:02 11/23/22 20:02 11/23/22 19:31 DATA Data Completed and Pending Labs: Labs from last 24 hours 11/23/22 11/23/22 11/23/22 15:45 14:45 14:45 WBC RBC Hgb Hct MCV MCH MCHC RDW Plt Count MPV Immature Gran % (Auto) Neut % (Auto) Lymph % (Auto) [place] % (Auto) Eos % (Auto) Baso % (Auto) Lymph # (Auto) [place] # (Auto) Eos # (Auto) Baso # (Auto) Immature Gran # Absolute Neutrophils ABG Methemoglobin 0.3 L VBG pH 7.38 VBG pCO2 65.9 H* VBG pO2 31.7 VBG HCO3 38.0 H VBG Total CO2 40.0 H VBG O2 Saturation 57.6 VBG Base Excess 10 H Carboxyhemoglobin 4.1 H Total Hemoglobin 14.4 Sodium Potassium Chloride Carbon Dioxide Anion Gap BUN Creatinine GFR Calculation Glucose Calcium Total Bilirubin AST ALT Alkaline Phosphatase Ammonia 23 NT-Pro-B Natriuret Pep Total Protein Albumin Globulin Albumin/Globulin Ratio Urine Color Kristine Urine Appearance Hazy A Urine pH 5.0 Ur Specific [place] 1.024 Urine Protein Negative Urine Glucose (UA) Negative Urine Ketones Negative Urine Occult Blood >=1.0 A Urine Nitrate Negative Urine Bilirubin Negative Urine Urobilinogen Negative Ur Leukocyte Esterase 250 A Urine RBC 163 H Urine WBC 52 H Ur Squamous Epith Cells 1 Urine Bacteria None Urine Mucus Few A Ur Culture Indicated? yes 11/23/22 11/23/22 14:45 14:45 WBC 11.5 H RBC 4.52 Hgb 13.2 Hct 42.4 MCV 93.8 MCH 29.2 MCHC 31.1 RDW 14.9 H Plt Count 227 MPV 11.2 Immature Gran % (Auto) 0.6 H Neut % (Auto) 79.9 H Lymph % (Auto) 10.2 L [place] % (Auto) 7.5 Eos % (Auto) 1.5 Baso % (Auto) 0.3 Lymph # (Auto) 1.17 L [place] # (Auto) 0.86 Eos # (Auto) 0.17 Baso # (Auto) 0.03 Immature Gran # 0.07 H Absolute Neutrophils 9.17 H ABG Methemoglobin VBG pH VBG pCO2 VBG pO2 VBG HCO3 VBG Total CO2 VBG O2 Saturation VBG Base Excess Carboxyhemoglobin Total Hemoglobin Sodium 148 H Potassium 4.1 Chloride 101 Carbon Dioxide 39 H Anion Gap 8.0 BUN 28 H Creatinine 0.6 GFR Calculation 93 Glucose 100 Calcium 9.2 Total Bilirubin 0.8 AST 17 ALT 20 Alkaline Phosphatase 70 Ammonia NT-Pro-B Natriuret Pep 2137.0 H Total Protein 6.6 Albumin 3.5 Globulin 3.1 Albumin/Globulin Ratio 1.1 Urine Color Urine Appearance Urine pH Ur Specific [place] Urine Protein Urine Glucose (UA) Urine Ketones Urine Occult Blood Urine Nitrate Urine Bilirubin Urine Urobilinogen Ur Leukocyte Esterase Urine RBC Urine WBC Ur Squamous Epith Cells Urine Bacteria Urine Mucus Ur Culture Indicated? A/P Time Spent With Patient Time: Total time spent is greater than 50% in coordination of care (as documented) at patient's floor/unit and/or counseling patient:
[2022-11-23] MEDS ORDERED: DEXTROSE 31 GM ORAL.SUSP PO PRN (20:31)
[2022-11-23] MEDS ORDERED: DEXTROSE 50% 50 ML VIAL IV PRN (20:31)
[2022-11-23] MEDS ORDERED: ONDANSETRON 4 MG/2 ML VIAL IV PRN (21:44)
[2022-11-23] MEDS ORDERED: cefTRIAXone 1 GM in DEXTROSE 5% IN WATER 50 ML IV SCH (21:44)
[2022-11-23] MEDS: DOCUSATE SODIUM 100 MG CAPSULE PO SCH (22:11)
[2022-11-23] MEDS: SENNOSIDES 1 TABLET PO SCH (22:12)
[2022-11-23] MEDS: 0.9 % SODIUM CHLORIDE 10 ML SYRINGE IV SCH (22:12)
[2022-11-23] MEDS ORDERED: IPRATROPIUM/ALBUTEROL 3 ML AMPUL.NEB NEB ONE (22:43)
[2022-11-23] MEDS: IPRATROPIUM/ALBUTEROL 3 ML AMPUL.NEB NEB SCH (22:43)
[2022-11-23] MEDS: INSULIN LISPRO 1 UNIT/0.01 ML UNIT SQ SCH (22:47)
[2022-11-24] MEDS: IPRATROPIUM/ALBUTEROL 3 ML AMPUL.NEB NEB SCH ×4 (01:34→20:20)
[2022-11-24] MEDS: DILTIAZEM 125 MG in DEXTROSE 5% IN WATER 100 ML IV SCH ×3 (03:29→20:18)
[2022-11-24] MEDS: 0.9 % SODIUM CHLORIDE 10 ML SYRINGE IV SCH ×3 (05:41→20:18)
[2022-11-24 06:43] LABS: Basophils # (Auto) 0.05 K/mcL (0.00-0.30); Basophils % (Auto) 0.5 % (0.0-2.0); Eosinophils % (Auto) 2.1 % (0.0-7.0); Hematocrit 36.8 % (34.1-44.9); Hemoglobin 11.6 g/dL (11.2-15.7); Lymphocytes # (Auto) 1.21 K/mcL (1.50-4.80); Lymphocytes % (Auto) 12.4 % (15.5-49.0); Mean Cell Volume 94.4 fL (80.0-100.0); Mean Corpuscular HGB Conc 31.5 g/dL (31.0-36.0); Mean Platelet Volume 11.7 fL (8.8-12.5); Monocytes # (Auto) 0.79 K/mcL (0.10-0.90); Monocytes % (Auto) 8.1 % (1.0-12.0); Neutrophils % (Auto) 76.2 % (38.0-78.0); Platelet Count 211 K/mcL (140-440); WBC 9.7 K/mcL (4.5-11.0)
[2022-11-24 07:06] LABS: ALT/SGPT 18 U/L (<40); AST/SGOT 17 U/L (<32); Albumin 3.1 gm/dL (3.2-5.2); Alkaline Phosphatase 63 U/L (39-117); Bilirubin,Total 0.9 mg/dL (0.1-1.0); Blood Urea Nitrogen 27 mg/dL (8-23); Calcium 8.9 mg/dL (8.6-10.4); Carbon Dioxide 38 mmol/L (22-30); Chloride 101 mmol/L (96-108); Globulin 3.2 gm/dL (2.2-3.7); Glomerular Filtration Rate 89; Glucose 102 mg/dL (70-105)
[2022-11-24] MEDS: METOPROLOL TARTRATE 5 MG/5 ML VIAL IV SCH ×3 (08:55→12:30)
[2022-11-24] MEDS: INSULIN LISPRO 1 UNIT/0.01 ML UNIT SQ SCH ×4 (10:34→20:18)
[2022-11-24] MEDS: cefTRIAXone 1 GM VIAL IV SCH (11:09)
[2022-11-24 11:26] LABS: POC INR 1.2 (0.8-1.2)
--- NOTE | 2022-11-24 11:26 | Internal Med Progress Note ---
SUBJECTIVE Subjective Patient information: Note initiated : 11/24/22 at 11:24 am Service Date, if different from initiated Date: [] Patient: Sheila Joseph 67 y/o F admitted on 11/23/22 for AMS. Chief Complaint: [] Additional PMFSH (Level 3 Only): History of present illness: Patient is a 67 years old female with multiple comorbidities including DM2, HTN, CHF, JO on CPAP, morbid obesity, chronic hypoxic resp failure on 3L NC O2 presented with altered mental status, confusion, somnolence and generalized weakness. Patient was admitted to [facility] on 11/10/2022 for COVID-19, respiratory failure and was intubated for 3 to 4 days, she was discharged on 11/17/1902/28/2023 to group home facility. Daughter reports she was also diagnosed with A-fib during that admission. According to family patient was doing better for couple days however then she was noted to be more confused, increased somnolence, mental status would wax and wane. Daughter reports patient had soft voice, she was unable to clear her throat due to weakness. At the facility urine culture was done but results are not back yet. On presentation patient was somnolent and confused. Patient was tachypneic and tachycardic with heart rate in 130s-150s. VBG showed pH of 7.38, PCO2 65. WBC 11.5, sodium 148, BNP 2137, normal renal functions. UA was positive for blood, leukocyte esterase, RBCs and WBCs. Chest x-ray showed vascular congestion. Rapid COVID positive but flu negative. CT head negative for acute finding. EKG showed A-fib with RVR, ventricular rate 115 bpm. Patient was placed on BiPAP and will be admitted to PCU for acute acute respiratory failure with hypercapnia, acute encephalopathy, UTI, A-fib with RVR and CHF. 11/24. Patient was very more alert, ABG shows compensated hypercapnic respiratory failure, was still CO2 pretty high, discussed with RT and change the BiPAP setting. Will repeat ABGs later. Leukocytosis has resolved. Urine culture pending. Patient's rapid COVID was positive in ER. Patient A-fib rate controlled is not adequate, will give IV metoprolol now Review of systems 12 point review of system was obtained, it was limited due to patient Physical examination 67 years old morbidly obese female, alert and awake, encephalopathy is resolving Normocephalic, atraumatic Chest with mild Rales bilaterally, on BiPAP S1 and S2, irregularly irregular, heart rate 120s to 130s, no murmurs heard, trace peripheral edema Abdomen is obese, soft and nontender Alert, oriented, moving all limbs symmetrically Does not appear to be agitated Assessment and plan Acute on chronic hypercapnic and hypoxic respiratory failure Altered mental status Acute encephalopathy, secondary to hypercapnia A-fib with RVR Congestive heart failure UTI Obstructive sleep apnea on CPAP Diabetes mellitus 2 Hypertension Morbid obesity Plan Continue care in PCU BiPAP settings increased due to significant hypercapnia Repeat ABGs in [address] head is negative Give IV magnesium sulfate 3 g now Keep K > 4 and Mg >2 Strict I's and O's, daily weight If ABG improved, will start her on oral rate controlling medication otherwise IV diltiazem Echocardiogram pending IV Lasix 40 mg daily Ceftriaxone for UTI, follow urine culture DVT and GI prophylaxis in place Full code Critical care time 55 minutes Constitutional Vitals: Vital Signs Temp Pulse Resp BP Pulse Ox O2 Del Method 97.3 F 116 H 22 108/72 95 BiPAP 11/24/22 08:11 11/24/22 08:40 11/24/22 10:01 11/24/22 10:01 11/24/22 09:28 11/24/22 10:01 Period Temp Pulse Resp BP Sys/Lou Pulse Ox O2 Del Method O2 Flow Rate Last 24 Hr 97.3 F-99.6 F 34-158 14-30 90-138/56-123 79-100 BiPAP-Room Air Intake and Output 11/23/22 11/24/22 11/24/22 19:59 03:59 11:59 Output Total 3 Balance -3 Weight 131.542 kg 138.618 kg Intake & Output: Intake & Output 11/23/22 11/24/22 11/24/22 19:59 03:59 11:59 Output Total 3 Balance -3 Weight 131.542 kg 138.618 kg Output: # of times incontinent of urine 3 OBJ DATA Labs 11/24/22 05:55 11/24/22 05:55 Labs: Abnormal Lab Results 11/24/22 11/24/22 11/24/22 07:25 05:55 05:55 WBC RDW 15.0 H Immature Gran % (Auto) 0.7 H Neut % (Auto) Lymph % (Auto) 12.4 L Lymph # (Auto) 1.21 L Immature Gran # 0.07 H Absolute Neutrophils POC pCO2 62.0 H* POC HCO3 43.3 H POC Total CO2 45.0 H* POC ABG Base Excess 19.0 H ABG Methemoglobin VBG pCO2 VBG HCO3 VBG Total CO2 VBG Base Excess Carboxyhemoglobin Sodium Carbon Dioxide 38 H Anion Gap 6.0 L BUN 27 H NT-Pro-B Natriuret Pep Albumin 3.1 L Urine Appearance Urine Occult Blood Ur Leukocyte Esterase Urine RBC Urine WBC Urine Mucus 11/23/22 11/23/22 11/23/22 22:21 15:45 14:45 WBC RDW Immature Gran % (Auto) Neut % (Auto) Lymph % (Auto) Lymph # (Auto) Immature Gran # Absolute Neutrophils POC pCO2 72.5 H* POC HCO3 42.9 H POC Total CO2 45.0 H* POC ABG Base Excess 18.0 H ABG Methemoglobin 0.3 L VBG pCO2 65.9 H* VBG HCO3 38.0 H VBG Total CO2 40.0 H VBG Base Excess 10 H Carboxyhemoglobin 4.1 H Sodium Carbon Dioxide Anion Gap BUN NT-Pro-B Natriuret Pep Albumin Urine Appearance Hazy A Urine Occult Blood >=1.0 A Ur Leukocyte Esterase 250 A Urine RBC 163 H Urine WBC 52 H Urine Mucus Few A 11/23/22 11/23/22 14:45 14:45 WBC 11.5 H RDW 14.9 H Immature Gran % (Auto) 0.6 H Neut % (Auto) 79.9 H Lymph % (Auto) 10.2 L Lymph # (Auto) 1.17 L Immature Gran # 0.07 H Absolute Neutrophils 9.17 H POC pCO2 POC HCO3 POC Total CO2 POC ABG Base Excess ABG Methemoglobin VBG pCO2 VBG HCO3 VBG Total CO2 VBG Base Excess Carboxyhemoglobin Sodium 148 H Carbon Dioxide 39 H Anion Gap BUN 28 H NT-Pro-B Natriuret Pep 2137.0 H Albumin Urine Appearance Urine Occult Blood Ur Leukocyte Esterase Urine RBC Urine WBC Urine Mucus Meds: Medications Acetaminophen (Acetaminophen 325 Mg Tablet) 650 mg PO Q6HP PRN; Protocol PRN Reason: Per Pain Protocol/Fever > 101 Albuterol/Ipratropium (Ipratropium/Albuterol 3 Ml Ampul.Neb) 3 ml NEB Q6HRT [facility] Last Admin: 11/24/22 07:25 Dose: 3 ml Ceftriaxone Sodium (Ceftriaxone 1 Gm Vial) 1 gm IV Q24H [facility] Last Admin: 11/24/22 11:09 Dose: 1 gm Dextrose (Dextrose 50% 50 Ml Vial) 0 ml IV UD PRN PRN Reason: Per Sliding Scale Diagnostic Test (Pha) (Accu-Chek 1 Each Strip) 1 each FS Q6H [facility] Last Admin: 11/24/22 05:55 Dose: 1 each Docusate Sodium (Docusate Sodium 100 Mg Capsule) 100 mg PO BID [facility] Last Admin: 11/23/22 22:11 Dose: Not Given Glucose (Dextrose 31 Gm Oral.Susp) 15 gm PO PRN PRN PRN Reason: Hypoglycemia Diltiazem HCl 125 mg/ Dextrose 125 mls @ 5 mls/hr IV Q12H [facility]; Protocol Last Admin: 11/24/22 10:37 Dose: Not Given Insulin Human Lispro (Insulin Lispro 1 Unit/0.01 Ml Unit) 0 unit SQ ACHS [facility]; Protocol Last Admin: 11/24/22 10:34 Dose: Not Given Ondansetron HCl (Ondansetron 4 Mg/2 Ml Vial) 4 mg IV Q6HP PRN PRN Reason: Nausea And Vomiting Senna (Sennosides 1 Tablet) 2 tab PO HS [facility] Last Admin: 11/23/22 22:12 Dose: Not Given Sodium Chloride (0.9 % Sodium Chloride 10 Ml Syringe) 10 ml IV Q8 [facility] Last Admin: 11/24/22 05:41 Dose: 10 ml ABG Interpretation ABG results: 11/23/22 14:45 ABG Methemoglobin 0.3 L VBG pH 7.38 VBG pCO2 65.9 H* VBG pO2 31.7 VBG HCO3 38.0 H VBG Total CO2 40.0 H VBG O2 Saturation 57.6 VBG Base Excess 10 H A/P Time Spent With Patient Time: Total time spent is greater than 50% in coordination of care (as documented) at patient's floor/unit and/or counseling patient: QUALITY VTE Deep Vein Thrombosis/Pulmonary Embolism Present on Admission: No
[2022-11-24] MEDS ORDERED: MAGNESIUM SULFATE 24.36 MEQ in DEXTROSE 5% IN WATER 50 ML IV ONE (12:00)
[2022-11-24] MEDS: DOCUSATE SODIUM 100 MG CAPSULE PO SCH ×2 (12:49→20:18)
[2022-11-24] MEDS ORDERED: TRIAMCINOLONE CREAM 0.1% 15G 1 DOSE TUBE TOPICAL PRN (13:28)
[2022-11-24] MEDS ORDERED: METOPROLOL TARTRATE 5 MG/5 ML VIAL IV ONE (13:29)
[2022-11-24] MEDS: METOPROLOL SUCCINATE 50 MG TAB.XL.24H PO SCH (14:48)
[2022-11-24] MEDS: FISH OIL 1,000 MG CAPSULE PO SCH ×2 (15:14→20:16)
[2022-11-24] MEDS: metFORMIN 500 MG TABLET PO SCH (17:46)
[2022-11-24] MEDS: FAMOTIDINE 20 MG TABLET PO SCH (20:15)
[2022-11-24] MEDS: ATORVASTATIN 10 MG TABLET PO SCH (20:15)
[2022-11-24] MEDS: APIXABAN 5 MG TABLET PO SCH (20:15)
[2022-11-24] MEDS: ACETAMINOPHEN 325 MG TABLET PO PRN (20:16)
[2022-11-24] MEDS: carBAMazepine 200 MG TAB.SR.12H PO SCH (20:18)
[2022-11-24] MEDS: SENNOSIDES 1 TABLET PO SCH (20:18)
[2022-11-25] MEDS: IPRATROPIUM/ALBUTEROL 3 ML AMPUL.NEB NEB SCH ×4 (03:33→18:52)
[2022-11-25] MEDS: 0.9 % SODIUM CHLORIDE 10 ML SYRINGE IV SCH ×3 (05:25→21:18)
[2022-11-25 07:06] LABS: Basophils # (Auto) 0.06 K/mcL (0.00-0.30); Basophils % (Auto) 0.7 % (0.0-2.0); Eosinophils # (Auto) 0.33 K/mcL (0.00-0.70); Eosinophils % (Auto) 3.9 % (0.0-7.0); Hematocrit 38.4 % (34.1-44.9); Hemoglobin 11.4 g/dL (11.2-15.7); Lymphocytes % (Auto) 15.2 % (15.5-49.0); Mean Corpuscular HGB Conc 29.7 g/dL (31.0-36.0); Mean Platelet Volume 11.6 fL (8.8-12.5); Monocytes % (Auto) 8.2 % (1.0-12.0); Neutrophils % (Auto) 71.3 % (38.0-78.0); Platelet Count 182 K/mcL (140-440); RBC 3.88 M/mcL (3.59-5.38); WBC 8.5 K/mcL (4.5-11.0)
[2022-11-25] MEDS: INSULIN LISPRO 1 UNIT/0.01 ML UNIT SQ SCH ×4 (07:11→21:00)
[2022-11-25] MEDS: METOPROLOL SUCCINATE 50 MG TAB.XL.24H PO SCH (07:54)
[2022-11-25] MEDS: cefTRIAXone 1 GM VIAL IV SCH (07:54)
[2022-11-25] MEDS: FAMOTIDINE 20 MG TABLET PO SCH ×2 (07:55→21:15)
[2022-11-25] MEDS: FISH OIL 1,000 MG CAPSULE PO SCH ×4 (07:55→21:17)
[2022-11-25] MEDS: ACETAMINOPHEN 325 MG TABLET PO PRN ×2 (07:55→20:10)
[2022-11-25] MEDS: APIXABAN 5 MG TABLET PO SCH ×2 (07:55→21:16)
[2022-11-25] MEDS: MULTIVIT,THER IRON,CA,FA & MIN 1 TABLET PO SCH (07:56)
[2022-11-25] MEDS: metFORMIN 500 MG TABLET PO SCH ×2 (07:56→17:37)
[2022-11-25] MEDS: POTASSIUM CHLORIDE 10 MEQ TABLET PO SCH (07:56)
[2022-11-25] MEDS: FLUTICASONE PROPIONATE SPRAY.NAS NS SCH (07:56)
[2022-11-25] MEDS: CLOPIDOGREL 75 MG TABLET PO SCH (07:56)
[2022-11-25] MEDS: DOCUSATE SODIUM 100 MG CAPSULE PO SCH ×2 (07:56→21:16)
[2022-11-25] MEDS: DILTIAZEM 125 MG in DEXTROSE 5% IN WATER 100 ML IV SCH ×2 (07:57→21:17)
[2022-11-25] MEDS: carBAMazepine 200 MG TAB.SR.12H PO SCH ×2 (07:57→21:17)
[2022-11-25] MEDS: LORATADINE 10 MG TABLET PO SCH (07:59)
--- NOTE | 2022-11-25 08:49 | Internal Med Progress Note ---
SUBJECTIVE Subjective Patient information: Note initiated : 11/25/22 at 8:47 am Service Date, if different from initiated Date: [] Patient: Sheila Joseph 67 y/o F admitted on 11/23/22 for AMS. Chief Complaint: [] Additional PMFSH (Level 3 Only): History of present illness: Patient is a 67 years old female with multiple comorbidities including DM2, HTN, CHF, JO on CPAP, morbid obesity, chronic hypoxic resp failure on 3L NC O2 presented with altered mental status, confusion, somnolence and generalized weakness. Patient was admitted to [facility] on 11/10/2022 for COVID-19, respiratory failure and was intubated for 3 to 4 days, she was discharged on 11/17/1902[facility]28/[facility] Daughter reports she was also diagnosed with A-fib during that admission. According to family patient was doing better for couple days however then she was noted to be more confused, increased somnolence, mental status would wax and wane. Daughter reports patient had soft voice, she was unable to clear her throat due to weakness. At the facility urine culture was done but results are not back yet. On presentation patient was somnolent and confused. Patient was tachypneic and tachycardic with heart rate in 130s-150s. VBG showed pH of 7.38, PCO2 65. WBC 11.5, sodium 148, BNP 2137, normal renal functions. UA was positive for blood, leukocyte esterase, RBCs and WBCs. Chest x-ray showed vascular congestion. Rapid COVID positive but flu negative. CT head negative for acute finding. EKG showed A-fib with RVR, ventricular rate 115 bpm. Patient was placed on BiPAP and will be admitted to PCU for acute acute respiratory failure with hypercapnia, acute encephalopathy, UTI, A-fib with RVR and CHF. 11/24. Patient was very more alert, ABG shows compensated hypercapnic respiratory failure, was still CO2 pretty high, discussed with RT and change the BiPAP setting. Will repeat ABGs later. Leukocytosis has resolved. Urine culture pending. Patient's rapid COVID was positive in ER. Patient A-fib rate controlled is not adequate, will give IV metoprolol now 11/25 patient is mentating at baseline, repeat ABG this morning and earlier showed she is in compensated hypercapnic respiratory failure with PCO2 around 61. pH was 7.41. Patient coherent alert and oriented. Leukocytosis remains absent. Urine culture from 11/23 positive for Enterococcus faecium sensitivities pending, tmax 99.4F, will DC ceftriaxone and start Unasyn which will likely cover for UTI and for her respiratory issues. Per infectious control nurse, patient will remain in precautions for now and will reevaluate tomorrow Review of systems 12 point review of system was obtained, it was limited due to patient Physical examination 67 years old morbidly obese female, alert and awake, coherent, in no acute distress Normocephalic, atraumatic Chest with mild Rales bilaterally, on 2L NC O2 S1 and S2, irregularly irregular, heart rate 90 bpm, no murmurs heard, trace peripheral edema Abdomen is obese, soft and nontender Alert, oriented, moving all limbs symmetrically Does not appear to be agitated Assessment and plan Acute on chronic hypercapnic and hypoxic respiratory failure Altered mental status, CT head negative Acute encephalopathy, secondary to hypercapnia A-fib with RVR, on metoprolol and Eliquis Congestive heart failure UTI, Urine culture from 11/23 positive for Enterococcus faecium sensitivities pending Obstructive sleep apnea on CPAP Diabetes mellitus 2 Hypertension Morbid obesity Plan Patient in compensated hypercapnic respiratory failure, weaned off BiPAP, continue pulmonary toileting Continue pulmonary toileting, BiPAP as needed, supplemental oxygen to continue and wean as tolerated Start patient on Unasyn for UTI. CMP from this morning pending Repeat IV Lasix 40mg x1. Patient takes torsemide 20 mg daily which can be resumed tomorrow Keep K > 4 and Mg >2 Continue metoprolol for rate control and Eliquis for anticoagulation Strict I's and O's, daily weight Echocardiogram pending DVT and GI prophylaxis in place Full code Critical care time 50 minutes Constitutional Vitals: Vital Signs Temp Pulse Resp BP Pulse Ox O2 Del Method O2 Flow Rate 99.4 F H 102 H 25 H 109/76 96 Nasal Cannula 2 11/25/22 08:00 11/25/22 08:00 11/25/22 08:00 11/25/22 08:00 11/25/22 08:00 11/25/22 08:00 11/25/22 08:00 Period Temp Pulse Resp BP Sys/Lou Pulse Ox O2 Del Method O2 Flow Rate Last 24 Hr 97.3 F-99.4 F 55-131 2-32 84-121/53-84 90-97 BiPAP-Room Air, Nasal Cannula, BiPAP 0.5-94 Intake and Output 11/24/22 11/25/22 11/25/22 19:59 03:59 11:59 Intake Total 536 360 240 Output Total 251 1 Balance 285 359 240 Weight 139.706 kg Intake & Output: Intake & Output 11/24/22 11/25/22 11/25/22 19:59 03:59 11:59 Intake Total 536 360 240 Output Total 251 1 Balance 285 359 240 Weight 139.706 kg Intake: IV 56 Magnesium Sulfate 24.36 Meq In 56 Dextrose 5% in Water 50 ml @ 19 mls/hr IV ONCE ONE Rx#: [id number] Oral 480 360 240 Output: Void Amount 250 # of times incontinent of urine 1 1 Other: Meal Lunch Percent of Meal Consumed 100% Feeding Ability Independent Urine Appearance Clear Urine Color Yellow OBJ DATA Labs 11/25/22 05:59 11/24/22 05:55 Labs: Abnormal Lab Results 11/25/22 11/25/22 11/24/22 07:14 05:59 20:08 WBC MCHC 29.7 L RDW 15.0 H Immature Gran % (Auto) 0.7 H Neut % (Auto) Lymph % (Auto) 15.2 L Lymph # (Auto) 1.30 L Immature Gran # 0.06 H Absolute Neutrophils POC pCO2 61.5 H* 61.0 H* POC pO2 56 L POC HCO3 39.3 H 41.2 H POC Total CO2 41.0 H 43.0 H* POC ABG Base Excess 15.0 H 17.0 H ABG Methemoglobin VBG pCO2 VBG HCO3 VBG Total CO2 VBG Base Excess Hgb O2 Saturation 98.0 H 89.0 L Carboxyhemoglobin Sodium Carbon Dioxide Anion Gap BUN NT-Pro-B Natriuret Pep Albumin Urine Appearance Urine Occult Blood Ur Leukocyte Esterase Urine RBC Urine WBC Urine Mucus 11/24/22 11/24/22 11/24/22 11:29 07:25 05:55 WBC MCHC RDW 15.0 H Immature Gran % (Auto) 0.7 H Neut % (Auto) Lymph % (Auto) 12.4 L Lymph # (Auto) 1.21 L Immature Gran # 0.07 H Absolute Neutrophils POC pCO2 66.0 H* 62.0 H* POC pO2 POC HCO3 42.8 H 43.3 H POC Total CO2 45.0 H* 45.0 H* POC ABG Base Excess 18.0 H 19.0 H ABG Methemoglobin VBG pCO2 VBG HCO3 VBG Total CO2 VBG Base Excess Hgb O2 Saturation Carboxyhemoglobin Sodium Carbon Dioxide Anion Gap BUN NT-Pro-B Natriuret Pep Albumin Urine Appearance Urine Occult Blood Ur Leukocyte Esterase Urine RBC Urine WBC Urine Mucus 11/24/22 11/23/22 11/23/22 05:55 22:21 15:45 WBC MCHC RDW Immature Gran % (Auto) Neut % (Auto) Lymph % (Auto) Lymph # (Auto) Immature Gran # Absolute Neutrophils POC pCO2 72.5 H* POC pO2 POC HCO3 42.9 H POC Total CO2 45.0 H* POC ABG Base Excess 18.0 H ABG Methemoglobin VBG pCO2 VBG HCO3 VBG Total CO2 VBG Base Excess Hgb O2 Saturation Carboxyhemoglobin Sodium Carbon Dioxide 38 H Anion Gap 6.0 L BUN 27 H NT-Pro-B Natriuret Pep Albumin 3.1 L Urine Appearance Hazy A Urine Occult Blood >=1.0 A Ur Leukocyte Esterase 250 A Urine RBC 163 H Urine WBC 52 H Urine Mucus Few A 11/23/22 11/23/22 11/23/22 14:45 14:45 14:45 WBC 11.5 H MCHC RDW 14.9 H Immature Gran % (Auto) 0.6 H Neut % (Auto) 79.9 H Lymph % (Auto) 10.2 L Lymph # (Auto) 1.17 L Immature Gran # 0.07 H Absolute Neutrophils 9.17 H POC pCO2 POC pO2 POC HCO3 POC Total CO2 POC ABG Base Excess ABG Methemoglobin 0.3 L VBG pCO2 65.9 H* VBG HCO3 38.0 H VBG Total CO2 40.0 H VBG Base Excess 10 H Hgb O2 Saturation Carboxyhemoglobin 4.1 H Sodium 148 H Carbon Dioxide 39 H Anion Gap BUN 28 H NT-Pro-B Natriuret Pep 2137.0 H Albumin Urine Appearance Urine Occult Blood Ur Leukocyte Esterase Urine RBC Urine WBC Urine Mucus Meds: Medications Acetaminophen (Acetaminophen 325 Mg Tablet) 650 mg PO Q6HP PRN; Protocol PRN Reason: Per Pain Protocol/Fever > 101 Last Admin: 11/25/22 07:55 Dose: 650 mg Albuterol/Ipratropium (Ipratropium/Albuterol 3 Ml Ampul.Neb) 3 ml NEB Q6HRT [facility] Last Admin: 11/25/22 07:07 Dose: 3 ml Apixaban (Apixaban 5 Mg Tablet) 5 mg PO BID [facility] Last Admin: 11/25/22 07:55 Dose: 5 mg Atorvastatin Calcium (Atorvastatin 10 Mg Tablet) 10 mg PO HS [facility] Last Admin: 11/24/22 20:15 Dose: 10 mg Carbamazepine (Carbamazepine 200 Mg Tab.Sr.12h) 700 mg PO BID [facility] Last Admin: 11/25/22 07:57 Dose: Not Given Ceftriaxone Sodium (Ceftriaxone 1 Gm Vial) 1 gm IV Q24H [facility] Last Admin: 11/25/22 07:54 Dose: 1 gm Clopidogrel Bisulfate (Clopidogrel 75 Mg Tablet) 75 mg PO QDAY [facility] Last Admin: 11/25/22 07:56 Dose: 75 mg Dextrose (Dextrose 50% 50 Ml Vial) 0 ml IV UD PRN PRN Reason: Per Sliding Scale Diagnostic Test (Pha) (Accu-Chek 1 Each Strip) 1 each FS ACHS [facility] Last Admin: 11/25/22 07:11 Dose: 1 each Docusate Sodium (Docusate Sodium 100 Mg Capsule) 100 mg PO BID [facility] Last Admin: 11/25/22 07:56 Dose: 100 mg Ergocalciferol (Ergocalciferol (Vitamin D2) 50,000 Unit Capsule) 50,000 unit PO Q7D [facility] Famotidine (Famotidine 20 Mg Tablet) 20 mg PO BID [facility] Last Admin: 11/25/22 07:55 Dose: 20 mg Fish Oil (Fish Oil 1,000 Mg Capsule) 1,000 mg PO TID [facility] Last Admin: 11/25/22 07:55 Dose: 1,000 mg Fluticasone Propionate (Fluticasone Propionate Oldhams.Livan) 2 spray NS QDAY [facility] Last Admin: 11/25/22 07:56 Dose: Not Given Glucose (Dextrose 31 Gm Oral.Susp) 15 gm PO PRN PRN PRN Reason: Hypoglycemia Diltiazem HCl 125 mg/ Dextrose 125 mls @ 5 mls/hr IV Q12H [facility]; Protocol Last Admin: 11/25/22 07:57 Dose: Not Given Insulin Human Lispro (Insulin Lispro 1 Unit/0.01 Ml Unit) 0 unit SQ ACHS [facility]; Protocol Last Admin: 11/25/22 07:11 Dose: Not Given Iron Carb/Multivit/Hackberry/Folic Acid (Multivit,Ther Iron,Ca,Fa & Min 1 Tablet) 1 tab PO DAILY [facility] Last Admin: 11/25/22 07:56 Dose: 1 tab Loratadine (Loratadine 10 Mg Tablet) 10 mg PO DAILY [facility] Last Admin: 11/25/22 07:59 Dose: 10 mg Metformin HCl (Metformin 500 Mg Tablet) 1,000 mg PO QDAY [facility] Last Admin: 11/25/22 07:56 Dose: 1,000 mg Metformin HCl (Metformin 500 Mg Tablet) 500 mg PO QPMCC [facility] Last Admin: 11/24/22 17:46 Dose: 500 mg Metoprolol Succinate (Metoprolol Succinate 50 Mg Tab.Xl.24h) 150 mg PO DAILY [facility] Last Admin: 11/25/22 07:54 Dose: 150 mg Ondansetron HCl (Ondansetron 4 Mg/2 Ml Vial) 4 mg IV Q6HP PRN PRN Reason: Nausea And Vomiting Zolmitriptan [Zomig] (2.5 Mg Tablet) 1 dose PO DAILYP PRN PRN Reason: Migraine Headache Potassium Chloride (Potassium Chloride 10 Meq Tablet) 10 meq PO QDAY [facility] Last Admin: 11/25/22 07:56 Dose: 10 meq Senna (Sennosides 1 Tablet) 2 tab PO HS [facility] Last Admin: 11/24/22 20:18 Dose: Not Given Sodium Chloride (0.9 % Sodium Chloride 10 Ml Syringe) 10 ml IV Q8 [facility] Last Admin: 11/25/22 05:25 Dose: 10 ml Triamcinolone Acetonide (Triamcinolone Cream 0.1% 15g 1 Dose Tube) 1 dose TOPICAL DAILYP PRN PRN Reason: Skin Irritation ABG Interpretation ABG results: 11/23/22 14:45 ABG Methemoglobin 0.3 L VBG pH 7.38 VBG pCO2 65.9 H* VBG pO2 31.7 VBG HCO3 38.0 H VBG Total CO2 40.0 H VBG O2 Saturation 57.6 VBG Base Excess 10 H A/P Time Spent With Patient Time: Total time spent is greater than 50% in coordination of care (as documented) at patient's floor/unit and/or counseling patient: QUALITY VTE Deep Vein Thrombosis/Pulmonary Embolism Present on Admission: No
[2022-11-25] MEDS ORDERED: FUROSEMIDE 40 MG/4 ML VIAL IV ONE (09:07)
[2022-11-25 09:50] LABS: ALT/SGPT 19 U/L (<40); AST/SGOT 19 U/L (<32); Albumin/Globulin Ratio 0.9 (1.0-2.3); Alkaline Phosphatase 66 U/L (39-117); Bilirubin,Total 0.7 mg/dL (0.1-1.0); Blood Urea Nitrogen 23 mg/dL (8-23); Calcium 8.6 mg/dL (8.6-10.4); Carbon Dioxide 37 mmol/L (22-30); Chloride 100 mmol/L (96-108); Globulin 3.2 gm/dL (2.2-3.7); Glomerular Filtration Rate 99; Glucose 94 mg/dL (70-105)
[2022-11-25] MEDS: AMPICILLIN SODIUM/SULBACTAM NA 1.5 GM in 0.9 % SODIUM CHLORIDE 50 ML IV SCH ×3 (10:37→17:37)
--- NOTE | 2022-11-25 14:03 | Internal Med Progress Note ---
SUBJECTIVE Subjective Patient information: Note initiated : 11/25/22 at 1:55 pm Service Date, if different from initiated Date: [] Patient: Sheila Joseph 67 y/o F admitted on 11/23/22 for AMS. Chief Complaint: [] Interval history: History of present illness: Patient is a 67 years old female with multiple comorbidities including DM2, HTN, CHF, JO on CPAP, morbid obesity, chronic hypoxic resp failure on 3L NC O2 presented with altered mental status, confusion, somnolence and generalized weakness. Patient was admitted to [facility] on 11/10/2022 for COVID-19, respiratory failure and was intubated for 3 to 4 days, she was discharged on 11/17/1902/28/2023 to halfway facility. Daughter reports she was also diagnosed with A-fib during that admission. According to family patient was doing better for couple days however then she was noted to be more confused, increased somnolence, mental status would wax and wane. Daughter reports patient had soft voice, she was unable to clear her throat due to weakness. At the facility urine culture was done but results are not back yet. On presentation patient was somnolent and confused. Patient was tachypneic and tachycardic with heart rate in 130s-150s. VBG showed pH of 7.38, PCO2 65. WBC 11.5, sodium 148, BNP 2137, normal renal functions. UA was positive for blood, leukocyte esterase, RBCs and WBCs. Chest x-ray showed vascular congestion. Rapid COVID positive but flu negative. CT head negative for acute finding. EKG showed A-fib with RVR, ventricular rate 115 bpm. Patient was placed on BiPAP and will be admitted to PCU for acute acute respiratory failure with hypercapnia, acute encephalopathy, UTI, A-fib with RVR and CHF. 11/24. Patient was very more alert, ABG shows compensated hypercapnic respiratory failure, was still CO2 pretty high, discussed with RT and change the BiPAP setting. Will repeat ABGs later. Leukocytosis has resolved. Urine culture pending. Patient's rapid COVID was positive in ER. Patient A-fib rate controlled is not adequate, will give IV metoprolol now 11/25 patient is mentating at baseline, repeat ABG this morning and earlier showed she is in compensated hypercapnic respiratory failure with PCO2 around 61 . pH was 7.41. Patient coherent alert and oriented. Leukocytosis remains absent. Urine culture from 11/23 positive for Enterococcus faecium sensitivities pending, tmax 99.4F, will DC ceftriaxone and start Unasyn which will likely cover for UTI and for her respiratory issues. Per infectious cont rol nurse, patient will remain in precautions for now and will reevaluate tomorrow 11/26 Review of Systems: denies headache/fever/chills/nausea/vomiting/chest or abdominal pain/cough/dyspnea/diarrhea. Otherwise see above. PHYSICAL EXAM General: Alert, Awake, No acute Distress, obese Eyes/N/T: EOMI, no scleral icterus, Head/Neck: neck supple, full ROM, CV: irregularly irregular, No murmurs, Pulm: mild rales b/l, no wheezing, no respiratory distress Abd: soft, nontender, +BS x4 Ext: no clubbing/cyanosis, b/l LE trace edema, nontender Neuro: Alert, no focal deficits, moves all extremities, , sensations intact b/l upper/lower Psychiatric: Skin: warm/dry, normal color Constitutional Vitals: Vital Signs Temp Pulse Resp BP Pulse Ox O2 Del Method O2 Flow Rate 98.3 F 103 H 22 97/67 99 Nasal Cannula 2 11/25/22 12:00 11/25/22 13:20 11/25/22 13:30 11/25/22 12:01 11/25/22 13:30 11/25/22 12:55 11/25/22 12:55 Period Temp Pulse Resp BP Sys/Lou Pulse Ox O2 Del Method O2 Flow Rate Last 24 Hr 97.3 F-99.4 F 32-127 2-28 84-121/53-84 90-99 BiPAP-Room Air, Nasal Cannula, BiPAP 0.5-94 Intake and Output 11/25/22 11/25/22 11/25/22 03:59 11:59 19:59 Intake Total 360 530 240 Output Total 1 2 250 Balance 359 528 -10 Intake & Output: Intake & Output 11/25/22 11/25/22 11/25/22 03:59 11:59 19:59 Intake Total 360 530 240 Output Total 1 2 250 Balance 359 528 -10 Intake: IV 50 Unasyn 1.5 gm In Sodium 50 Chloride 0.9% 50 ml @ 100 mls/ hr IV Q6H [facility] Rx#:[id number] Oral 360 480 240 Output: Void Amount 250 # of times incontinent of urine 1 2 Other: Meal Breakfast Lunch Percent of Meal Consumed 100% 100% Feeding Ability Assist with Tray Set Up Urine Appearance Clear Urine Color Yellow Yellow Stool Size Moderate Stool Color Brown Stool Consistency Loose # Bowel Movements 1 OBJ DATA Labs 11/25/22 05:59 11/25/22 07:05 Labs: Abnormal Lab Results 11/25/22 11/25/22 11/25/22 07:14 07:05 05:59 WBC MCHC 29.7 L RDW 15.0 H Immature Gran % (Auto) 0.7 H Neut % (Auto) Lymph % (Auto) 15.2 L Lymph # (Auto) 1.30 L Immature Gran # 0.06 H Absolute Neutrophils POC pCO2 61.5 H* POC pO2 POC HCO3 39.3 H POC Total CO2 41.0 H POC ABG Base Excess 15.0 H ABG Methemoglobin VBG pCO2 VBG HCO3 VBG Total CO2 VBG Base Excess Hgb O2 Saturation 98.0 H Carboxyhemoglobin Sodium Carbon Dioxide 37 H Anion Gap 5.0 L BUN Creatinine 0.5 L NT-Pro-B Natriuret Pep Albumin 3.0 L Albumin/Globulin Ratio 0.9 L Urine Appearance Urine Occult Blood Ur Leukocyte Esterase Urine RBC Urine WBC Urine Mucus 11/24/22 11/24/22 11/24/22 20:08 11:29 07:25 WBC MCHC RDW Immature Gran % (Auto) Neut % (Auto) Lymph % (Auto) Lymph # (Auto) Immature Gran # Absolute Neutrophils POC pCO2 61.0 H* 66.0 H* 62.0 H* POC pO2 56 L POC HCO3 41.2 H 42.8 H 43.3 H POC Total CO2 43.0 H* 45.0 H* 45.0 H* POC ABG Base Excess 17.0 H 18.0 H 19.0 H ABG Methemoglobin VBG pCO2 VBG HCO3 VBG Total CO2 VBG Base Excess Hgb O2 Saturation 89.0 L Carboxyhemoglobin Sodium Carbon Dioxide Anion Gap BUN Creatinine NT-Pro-B Natriuret Pep Albumin Albumin/Globulin Ratio Urine Appearance Urine Occult Blood Ur Leukocyte Esterase Urine RBC Urine WBC Urine Mucus 11/24/22 11/24/22 11/23/22 05:55 05:55 22:21 WBC MCHC RDW 15.0 H Immature Gran % (Auto) 0.7 H Neut % (Auto) Lymph % (Auto) 12.4 L Lymph # (Auto) 1.21 L Immature Gran # 0.07 H Absolute Neutrophils POC pCO2 72.5 H* POC pO2 POC HCO3 42.9 H POC Total CO2 45.0 H* POC ABG Base Excess 18.0 H ABG Methemoglobin VBG pCO2 VBG HCO3 VBG Total CO2 VBG Base Excess Hgb O2 Saturation Carboxyhemoglobin Sodium Carbon Dioxide 38 H Anion Gap 6.0 L BUN 27 H Creatinine NT-Pro-B Natriuret Pep Albumin 3.1 L Albumin/Globulin Ratio Urine Appearance Urine Occult Blood Ur Leukocyte Esterase Urine RBC Urine WBC Urine Mucus 11/23/22 11/23/22 11/23/22 15:45 14:45 14:45 WBC MCHC RDW Immature Gran % (Auto) Neut % (Auto) Lymph % (Auto) Lymph # (Auto) Immature Gran # Absolute Neutrophils POC pCO2 POC pO2 POC HCO3 POC Total CO2 POC ABG Base Excess ABG Methemoglobin 0.3 L VBG pCO2 65.9 H* VBG HCO3 38.0 H VBG Total CO2 40.0 H VBG Base Excess 10 H Hgb O2 Saturation Carboxyhemoglobin 4.1 H Sodium 148 H Carbon Dioxide 39 H Anion Gap BUN 28 H Creatinine NT-Pro-B Natriuret Pep 2137.0 H Albumin Albumin/Globulin Ratio Urine Appearance Hazy A Urine Occult Blood >=1.0 A Ur Leukocyte Esterase 250 A Urine RBC 163 H Urine WBC 52 H Urine Mucus Few A 11/23/22 14:45 WBC 11.5 H MCHC RDW 14.9 H Immature Gran % (Auto) 0.6 H Neut % (Auto) 79.9 H Lymph % (Auto) 10.2 L Lymph # (Auto) 1.17 L Immature Gran # 0.07 H Absolute Neutrophils 9.17 H POC pCO2 POC pO2 POC HCO3 POC Total CO2 POC ABG Base Excess ABG Methemoglobin VBG pCO2 VBG HCO3 VBG Total CO2 VBG Base Excess Hgb O2 Saturation Carboxyhemoglobin Sodium Carbon Dioxide Anion Gap BUN Creatinine NT-Pro-B Natriuret Pep Albumin Albumin/Globulin Ratio Urine Appearance Urine Occult Blood Ur Leukocyte Esterase Urine RBC Urine WBC Urine Mucus Meds: Medications Acetaminophen (Acetaminophen 325 Mg Tablet) 650 mg PO Q6HP PRN; Protocol PRN Reason: Per Pain Protocol/Fever > 101 Last Admin: 11/25/22 07:55 Dose: 650 mg Albuterol/Ipratropium (Ipratropium/Albuterol 3 Ml Ampul.Neb) 3 ml NEB Q6HRT [facility] Last Admin: 11/25/22 13:14 Dose: 3 ml Apixaban (Apixaban 5 Mg Tablet) 5 mg PO BID [facility] Last Admin: 11/25/22 07:55 Dose: 5 mg Atorvastatin Calcium (Atorvastatin 10 Mg Tablet) 10 mg PO HS [facility] Last Admin: 11/24/22 20:15 Dose: 10 mg Carbamazepine (Carbamazepine 200 Mg Tab.Sr.12h) 700 mg PO BID [facility] Last Admin: 11/25/22 07:57 Dose: Not Given Clopidogrel Bisulfate (Clopidogrel 75 Mg Tablet) 75 mg PO QDAY [facility] Last Admin: 11/25/22 07:56 Dose: 75 mg Dextrose (Dextrose 50% 50 Ml Vial) 0 ml IV UD PRN PRN Reason: Per Sliding Scale Diagnostic Test (Pha) (Accu-Chek 1 Each Strip) 1 each FS ACHS [facility] Last Admin: 11/25/22 12:03 Dose: 1 each Docusate Sodium (Docusate Sodium 100 Mg Capsule) 100 mg PO BID [facility] Last Admin: 11/25/22 07:56 Dose: 100 mg Ergocalciferol (Ergocalciferol (Vitamin D2) 50,000 Unit Capsule) 50,000 unit PO Q7D [facility] Famotidine (Famotidine 20 Mg Tablet) 20 mg PO BID [facility] Last Admin: 11/25/22 07:55 Dose: 20 mg Fish Oil (Fish Oil 1,000 Mg Capsule) 1,000 mg PO TID [facility] Last Admin: 11/25/22 12:50 Dose: Not Given Fluticasone Propionate (Fluticasone Propionate [place].Livan) 2 spray NS QDAY [facility] Last Admin: 11/25/22 07:56 Dose: Not Given Glucose (Dextrose 31 Gm Oral.Susp) 15 gm PO PRN PRN PRN Reason: Hypoglycemia Diltiazem HCl 125 mg/ Dextrose 125 mls @ 5 mls/hr IV Q12H [facility]; Protocol Last Admin: 11/25/22 07:57 Dose: Not Given Ampicillin Sodium/Sulbactam (Sodium 1.5 gm/ Sodium Chloride) 50 mls @ 100 mls/hr IV Q6H [facility] Last Admin: 11/25/22 12:53 Dose: 100 mls/hr Insulin Human Lispro (Insulin Lispro 1 Unit/0.01 Ml Unit) 0 unit SQ ACHS [facility]; Protocol Last Admin: 11/25/22 12:03 Dose: Not Given Iron Carb/Multivit/Pattern Generator Operator/Folic Acid (Multivit,Ther Iron,Ca,Fa & Min 1 Tablet) 1 tab PO DAILY [facility] Last Admin: 11/25/22 07:56 Dose: 1 tab Loratadine (Loratadine 10 Mg Tablet) 10 mg PO DAILY [facility] Last Admin: 11/25/22 07:59 Dose: 10 mg Metformin HCl (Metformin 500 Mg Tablet) 1,000 mg PO QDAY [facility] Last Admin: 11/25/22 07:56 Dose: 1,000 mg Metformin HCl (Metformin 500 Mg Tablet) 500 mg PO QPMCC [facility] Last Admin: 11/24/22 17:46 Dose: 500 mg Metoprolol Succinate (Metoprolol Succinate 50 Mg Tab.Xl.24h) 150 mg PO DAILY [facility] Last Admin: 11/25/22 07:54 Dose: 150 mg Ondansetron HCl (Ondansetron 4 Mg/2 Ml Vial) 4 mg IV Q6HP PRN PRN Reason: Nausea And Vomiting Zolmitriptan [Zomig] (2.5 Mg Tablet) 1 dose PO DAILYP PRN PRN Reason: Migraine Headache Potassium Chloride (Potassium Chloride 10 Meq Tablet) 10 meq PO QDAY [facility] Last Admin: 11/25/22 07:56 Dose: 10 meq Senna (Sennosides 1 Tablet) 2 tab PO HS [facility] Last Admin: 11/24/22 20:18 Dose: Not Given Sodium Chloride (0.9 % Sodium Chloride 10 Ml Syringe) 10 ml IV Q8 [facility] Last Admin: 11/25/22 12:53 Dose: 10 ml Triamcinolone Acetonide (Triamcinolone Cream 0.1% 15g 1 Dose Tube) 1 dose TOPICAL DAILYP PRN PRN Reason: Skin Irritation ABG Interpretation ABG results: 11/23/22 14:45 ABG Methemoglobin 0.3 L VBG pH 7.38 VBG pCO2 65.9 H* VBG pO2 31.7 VBG HCO3 38.0 H VBG Total CO2 40.0 H VBG O2 Saturation 57.6 VBG Base Excess 10 H A/P Narrative A/P Narrative: Assessment: *Acute on chronic hypercapnic and hypoxic respiratory failure: *Encephalopathy: Secondary to above -CT head negative *chronic A-fib w/RVR: *Congestive heart failure: *UTI (Enterococcus faecium): *Obstructive sleep apnea on CPAP: *Diabetes mellitus 2 *Hypertension *Morbid obesity: bmi 48, Lifestyle modification *Recent hospitalization for COVID requiring intubation @ [facility] *GERD: Plan: -Patient in compensated hypercapnic respiratory failure, weaned off BiPAP, continue pulmonary toileting -Continue pulmonary toileting, BiPAP as needed, supplemental oxygen to continue and wean as tolerated -Start patient on Unasyn for UTI, pending final UC -CMP from this morning pending -Repeat IV Lasix 40mg x1. Patient takes torsemide 20 mg daily which can be resumed tomorrow -Keep K > 4 and Mg >2 -Continue metoprolol for rate control and Eliquis for anticoagulation -Strict I's and O's, daily weight -Echocardiogram pending -Metformin, SSI -ppx: apixaban / home H2 Full code Time Spent With Patient Time: Total time spent is greater than 50% in coordination of care (as documented) at patient's floor/unit and/or counseling patient: QUALITY VTE Deep Vein Thrombosis/Pulmonary Embolism Present on Admission: No
[2022-11-25] MEDS: ATORVASTATIN 10 MG TABLET PO SCH (21:15)
[2022-11-25] MEDS: SENNOSIDES 1 TABLET PO SCH (21:17)
[2022-11-26] MEDS: AMPICILLIN SODIUM/SULBACTAM NA 1.5 GM in 0.9 % SODIUM CHLORIDE 50 ML IV SCH ×5 (00:04→23:44)
[2022-11-26] MEDS: IPRATROPIUM/ALBUTEROL 3 ML AMPUL.NEB NEB SCH ×4 (00:19→20:11)
[2022-11-26] MEDS: ACETAMINOPHEN 325 MG TABLET PO PRN ×3 (02:39→17:34)
[2022-11-26] MEDS: 0.9 % SODIUM CHLORIDE 10 ML SYRINGE IV SCH ×3 (06:48→20:53)
[2022-11-26 06:52] LABS: ALT/SGPT 19 U/L (<40); AST/SGOT 19 U/L (<32); Albumin 2.9 gm/dL (3.2-5.2); Alkaline Phosphatase 62 U/L (39-117); Bilirubin,Direct 0.2 mg/dL (<0.3); Bilirubin,Total 0.5 mg/dL (0.1-1.0); Blood Urea Nitrogen 16 mg/dL (8-23); Calcium 8.1 mg/dL (8.6-10.4); Carbon Dioxide 34 mmol/L (22-30); Chloride 104 mmol/L (96-108); Globulin 2.8 gm/dL (2.2-3.7); Glomerular Filtration Rate 99; Glucose 89 mg/dL (70-105); Lactate Dehydrogenase 242 U/L (135-225); Phosphorous 2.3 mg/dL (2.5-4.5); Triglycerides 132 mg/dL (<150); Uric Acid 5.1 mg/dL (2.5-8.0)
--- NOTE | 2022-11-26 06:58 | EKG ---
[facility] Test Date: 2022-11-23 Pat Name: Sheila Kellogg Department: ED Room: Gender: Female Business Department Chair: : 1955 Requested By: Boston Nugent Order Number: [id number] Reading MD: Lobo Navarro Measurements Intervals [place] Rate: 115 P: [place]: QRS: 223 QRSD: 91 T: 29 QT: 309 QTc: 428 Interpretive Statements Atrial fibrillation Consider right ventricular hypertrophy Inferior infarct, old Probable anteroseptal infarct, old Electronically Signed On 11-26-2022 6:57:59 PDT by Lobo Navarro /[email or web address]/[email or web address]/[id number]
[2022-11-26] MEDS ORDERED: ALBUMIN HUMAN 12.5 GM/50 ML VIAL IV ONE (08:03)
[2022-11-26] MEDS ORDERED: FUROSEMIDE 40 MG/4 ML VIAL IV ONE (08:03)
--- NOTE | 2022-11-26 08:09 | Internal Med Progress Note ---
SUBJECTIVE Subjective Patient information: Note initiated : 11/26/22 at 7:58 am Service Date, if different from initiated Date: [] Patient: Sheila Joseph 67 y/o F admitted on 11/23/22 for AMS. Chief Complaint: [] Interval history: History of present illness: Patient is a 67 years old female with multiple comorbidities including DM2, HTN, CHF, JO on CPAP, morbid obesity, chronic hypoxic resp failure on 3L NC O2 presented with altered mental status, confusion, somnolence and generalized weakness. Patient was admitted to [facility] on 11/10/2022 for COVID-19, respiratory failure and was intubated for 3 to 4 days, she was discharged on 11/17/1902/28/2023 to detention facility. Daughter reports she was also diagnosed with A-fib during that admission. According to family patient was doing better for couple days however then she was noted to be more confused, increased somnolence, mental status would wax and wane. Daughter reports patient had soft voice, she was unable to clear her throat due to weakness. At the facility urine culture was done but results are not back yet. On presentation patient was somnolent and confused. Patient was tachypneic and tachycardic with heart rate in 130s-150s. VBG showed pH of 7.38, PCO2 65. WBC 11.5, sodium 148, BNP 2137, normal renal functions. UA was positive for blood, leukocyte esterase, RBCs and WBCs. Chest x-ray showed vascular congestion. Rapid COVID positive but flu negative. CT head negative for acute finding. EKG showed A-fib with RVR, ventricular rate 115 bpm. Patient was placed on BiPAP and will be admitted to PCU for acute acute respiratory failure with hypercapnia, acute encephalopathy, UTI, A-fib with RVR and CHF. 11/24. Patient was very more alert, ABG shows compensated hypercapnic respiratory failure, was still CO2 pretty high, discussed with RT and change the BiPAP setting. Will repeat ABGs later. Leukocytosis has resolved. Urine culture pending. Patient's rapid COVID was positive in ER. Patient A-fib rate controlled is not adequate, will give IV metoprolol now 11/25 patient is mentating at baseline, repeat ABG this morning and earlier showed she is in compensated hypercapnic respiratory failure with PCO2 around 61 . pH was 7.41. Patient coherent alert and oriented. Leukocytosis remains absent. Urine culture from 11/23 positive for Enterococcus faecium sensitivities pending, tmax 99.4F, will DC ceftriaxone and start Unasyn which will likely cover for UTI and for her respiratory issues. Per infectious cont rol nurse, patient will remain in precautions for now and will reevaluate tomorrow 11/26 Patient says she is feeling better. Minimal cough mostly with nebulizers. Shortness of breath She says not really noticeable at rest. Awaiting echo report. Patient on 1 to 2 L nasal cannula overnight. We will continue weaning down. Review of Systems: denies headache/fever/chills/nausea/vomiting/chest or abdominal pain/diarrhea. Otherwise see above. PHYSICAL EXAM General: Alert, Awake, No acute Distress, obese Eyes/N/T: EOMI, no scleral icterus, Head/Neck: neck supple, full ROM, CV: irregularly irregular, No murmurs, Pulm: Clearing lungs b/l, no wheezing, no respiratory distress Abd: soft, nontender, +BS x4 Ext: no clubbing/cyanosis, b/l LE trace edema, nontender Neuro: Alert, no focal deficits, moves all extremities, , sensations intact b/l upper/lower Psychiatric: Skin: warm/dry, normal color Constitutional Vitals: Vital Signs Temp Pulse Resp BP Pulse Ox O2 Del Method O2 Flow Rate 97.2 F 110 H 18 99/86 94 Nasal Cannula 2 11/26/22 07:24 11/26/22 07:10 11/26/22 07:10 11/26/22 04:00 11/26/22 07:10 11/26/22 07:10 11/26/22 07:10 Period Temp Pulse Resp BP Sys/Lou Pulse Ox O2 Del Method O2 Flow Rate Last 24 Hr 97.2 F-99.4 F 32-142 12-28 90-111/60-86 88-99 Nasal Cannula- Nasal Cannula 1-2 Intake and Output 11/25/22 11/26/22 11/26/22 19:59 03:59 11:59 Intake Total 340 50 240 Output Total 401 350 Balance -61 50 -110 Weight 138.034 kg Intake & Output: Intake & Output 11/25/22 11/26/22 11/26/22 19:59 03:59 11:59 Intake Total 340 50 240 Output Total 401 350 Balance -61 50 -110 Weight 138.034 kg Intake: IV 100 50 Unasyn 1.5 gm In Sodium 100 50 Chloride 0.9% 50 ml @ 100 mls/ hr IV Q6H [facility] Rx#:[id number] Oral 240 240 Output: Void Amount 400 350 # of times incontinent of urine 1 Other: Meal Dinner Percent of Meal Consumed 100% Feeding Ability Independent Urine Appearance Cloudy Clear Urine Color Dark Yellow Dark Yellow Urine Odor Normal Stool Size Moderate Stool Color Brown Stool Consistency Loose # Bowel Movements 1 OBJ DATA Labs 11/25/22 05:59 11/26/22 05:24 Labs: Abnormal Lab Results 11/26/22 11/25/22 11/25/22 05:24 07:14 07:05 WBC MCHC RDW Immature Gran % (Auto) Neut % (Auto) Lymph % (Auto) Lymph # (Auto) Immature Gran # Absolute Neutrophils POC pCO2 61.5 H* POC pO2 POC HCO3 39.3 H POC Total CO2 41.0 H POC ABG Base Excess 15.0 H ABG Methemoglobin VBG pCO2 VBG HCO3 VBG Total CO2 VBG Base Excess Hgb O2 Saturation 98.0 H Carboxyhemoglobin Sodium Carbon Dioxide 34 H 37 H Anion Gap 6.0 L 5.0 L BUN Creatinine 0.5 L 0.5 L Calcium 8.1 L Phosphorus 2.3 L GGT 41 H Lactate Dehydrogenase 242 H NT-Pro-B Natriuret Pep Total Protein 5.7 L Albumin 2.9 L 3.0 L Albumin/Globulin Ratio 0.9 L Urine Appearance Urine Occult Blood Ur Leukocyte Esterase Urine RBC Urine WBC Urine Mucus 11/25/22 11/24/22 11/24/22 05:59 20:08 11:29 WBC MCHC 29.7 L RDW 15.0 H Immature Gran % (Auto) 0.7 H Neut % (Auto) Lymph % (Auto) 15.2 L Lymph # (Auto) 1.30 L Immature Gran # 0.06 H Absolute Neutrophils POC pCO2 61.0 H* 66.0 H* POC pO2 56 L POC HCO3 41.2 H 42.8 H POC Total CO2 43.0 H* 45.0 H* POC ABG Base Excess 17.0 H 18.0 H ABG Methemoglobin VBG pCO2 VBG HCO3 VBG Total CO2 VBG Base Excess Hgb O2 Saturation 89.0 L Carboxyhemoglobin Sodium Carbon Dioxide Anion Gap BUN Creatinine Calcium Phosphorus GGT Lactate Dehydrogenase NT-Pro-B Natriuret Pep Total Protein Albumin Albumin/Globulin Ratio Urine Appearance Urine Occult Blood Ur Leukocyte Esterase Urine RBC Urine WBC Urine Mucus 11/24/22 11/24/22 11/24/22 07:25 05:55 05:55 WBC MCHC RDW 15.0 H Immature Gran % (Auto) 0.7 H Neut % (Auto) Lymph % (Auto) 12.4 L Lymph # (Auto) 1.21 L Immature Gran # 0.07 H Absolute Neutrophils POC pCO2 62.0 H* POC pO2 POC HCO3 43.3 H POC Total CO2 45.0 H* POC ABG Base Excess 19.0 H ABG Methemoglobin VBG pCO2 VBG HCO3 VBG Total CO2 VBG Base Excess Hgb O2 Saturation Carboxyhemoglobin Sodium Carbon Dioxide 38 H Anion Gap 6.0 L BUN 27 H Creatinine Calcium Phosphorus GGT Lactate Dehydrogenase NT-Pro-B Natriuret Pep Total Protein Albumin 3.1 L Albumin/Globulin Ratio Urine Appearance Urine Occult Blood Ur Leukocyte Esterase Urine RBC Urine WBC Urine Mucus 11/23/22 11/23/22 11/23/22 22:21 15:45 14:45 WBC MCHC RDW Immature Gran % (Auto) Neut % (Auto) Lymph % (Auto) Lymph # (Auto) Immature Gran # Absolute Neutrophils POC pCO2 72.5 H* POC pO2 POC HCO3 42.9 H POC Total CO2 45.0 H* POC ABG Base Excess 18.0 H ABG Methemoglobin 0.3 L VBG pCO2 65.9 H* VBG HCO3 38.0 H VBG Total CO2 40.0 H VBG Base Excess 10 H Hgb O2 Saturation Carboxyhemoglobin 4.1 H Sodium Carbon Dioxide Anion Gap BUN Creatinine Calcium Phosphorus GGT Lactate Dehydrogenase NT-Pro-B Natriuret Pep Total Protein Albumin Albumin/Globulin Ratio Urine Appearance Hazy A Urine Occult Blood >=1.0 A Ur Leukocyte Esterase 250 A Urine RBC 163 H Urine WBC 52 H Urine Mucus Few A 11/23/22 11/23/22 14:45 14:45 WBC 11.5 H MCHC RDW 14.9 H Immature Gran % (Auto) 0.6 H Neut % (Auto) 79.9 H Lymph % (Auto) 10.2 L Lymph # (Auto) 1.17 L Immature Gran # 0.07 H Absolute Neutrophils 9.17 H POC pCO2 POC pO2 POC HCO3 POC Total CO2 POC ABG Base Excess ABG Methemoglobin VBG pCO2 VBG HCO3 VBG Total CO2 VBG Base Excess Hgb O2 Saturation Carboxyhemoglobin Sodium 148 H Carbon Dioxide 39 H Anion Gap BUN 28 H Creatinine Calcium Phosphorus GGT Lactate Dehydrogenase NT-Pro-B Natriuret Pep 2137.0 H Total Protein Albumin Albumin/Globulin Ratio Urine Appearance Urine Occult Blood Ur Leukocyte Esterase Urine RBC Urine WBC Urine Mucus Meds: Medications Acetaminophen (Acetaminophen 325 Mg Tablet) 650 mg PO Q6HP PRN; Protocol PRN Reason: Per Pain Protocol/Fever > 101 Last Admin: 11/26/22 02:39 Dose: 650 mg Albuterol/Ipratropium (Ipratropium/Albuterol 3 Ml Ampul.Neb) 3 ml NEB Q6HRT [facility] Last Admin: 11/26/22 07:10 Dose: 3 ml Apixaban (Apixaban 5 Mg Tablet) 5 mg PO BID [facility] Last Admin: 11/25/22 21:16 Dose: 5 mg Atorvastatin Calcium (Atorvastatin 10 Mg Tablet) 10 mg PO HS [facility] Last Admin: 11/25/22 21:15 Dose: 10 mg Carbamazepine (Carbamazepine 200 Mg Tab.Sr.12h) 700 mg PO BID [facility] Last Admin: 11/25/22 21:17 Dose: Not Given Clopidogrel Bisulfate (Clopidogrel 75 Mg Tablet) 75 mg PO QDAY [facility] Last Admin: 11/25/22 07:56 Dose: 75 mg Dextrose (Dextrose 50% 50 Ml Vial) 0 ml IV UD PRN PRN Reason: Per Sliding Scale Diagnostic Test (Pha) (Accu-Chek 1 Each Strip) 1 each FS ACHS [facility] Last Admin: 11/25/22 21:00 Dose: 1 each Docusate Sodium (Docusate Sodium 100 Mg Capsule) 100 mg PO BID [facility] Last Admin: 11/25/22 21:16 Dose: Not Given Ergocalciferol (Ergocalciferol (Vitamin D2) 50,000 Unit Capsule) 50,000 unit PO Q7D [facility] Famotidine (Famotidine 20 Mg Tablet) 20 mg PO BID [facility] Last Admin: 11/25/22 21:15 Dose: 20 mg Fish Oil (Fish Oil 1,000 Mg Capsule) 1,000 mg PO TID [facility] Last Admin: 05/17/23 21:17 Dose: Not Given Fluticasone Propionate (Fluticasone Propionate [place].Livan) 2 spray NS QDAY [facility] Last Admin: 11/25/22 07:56 Dose: Not Given Glucose (Dextrose 31 Gm Oral.Susp) 15 gm PO PRN PRN PRN Reason: Hypoglycemia Diltiazem HCl 125 mg/ Dextrose 125 mls @ 5 mls/hr IV Q12H [facility]; Protocol Last Admin: 11/25/22 21:17 Dose: Not Given Ampicillin Sodium/Sulbactam (Sodium 1.5 gm/ Sodium Chloride) 50 mls @ 100 mls/hr IV Q6H [facility] Last Admin: 11/26/22 06:48 Dose: 100 mls/hr Insulin Human Lispro (Insulin Lispro 1 Unit/0.01 Ml Unit) 0 unit SQ ACHS [facility]; Protocol Last Admin: 11/25/22 21:00 Dose: Not Given Iron Carb/Multivit/[place]/Folic Acid (Multivit,Ther Iron,Ca,Fa & Min 1 Tablet) 1 tab PO DAILY [facility] Last Admin: 11/25/22 07:56 Dose: 1 tab Loratadine (Loratadine 10 Mg Tablet) 10 mg PO DAILY [facility] Last Admin: 11/25/22 07:59 Dose: 10 mg Metformin HCl (Metformin 500 Mg Tablet) 1,000 mg PO QDAY [facility] Last Admin: 11/25/22 07:56 Dose: 1,000 mg Metformin HCl (Metformin 500 Mg Tablet) 500 mg PO QPMCC [facility] Last Admin: 11/25/22 17:37 Dose: 500 mg Metoprolol Succinate (Metoprolol Succinate 50 Mg Tab.Xl.24h) 150 mg PO DAILY [facility] Last Admin: 11/25/22 07:54 Dose: 150 mg Ondansetron HCl (Ondansetron 4 Mg/2 Ml Vial) 4 mg IV Q6HP PRN PRN Reason: Nausea And Vomiting Zolmitriptan [Zomig] (2.5 Mg Tablet) 1 dose PO DAILYP PRN PRN Reason: Migraine Headache Potassium Chloride (Potassium Chloride 10 Meq Tablet) 10 meq PO QDAY [facility] Last Admin: 11/25/22 07:56 Dose: 10 meq Senna (Sennosides 1 Tablet) 2 tab PO HS [facility] Last Admin: 11/25/22 21:17 Dose: Not Given Sodium Chloride (0.9 % Sodium Chloride 10 Ml Syringe) 10 ml IV Q8 [facility] Last Admin: 11/26/22 06:48 Dose: 10 ml Triamcinolone Acetonide (Triamcinolone Cream 0.1% 15g 1 Dose Tube) 1 dose TOPICAL DAILYP PRN PRN Reason: Skin Irritation ABG Interpretation ABG results: 11/23/22 14:45 ABG Methemoglobin 0.3 L VBG pH 7.38 VBG pCO2 65.9 H* VBG pO2 31.7 VBG HCO3 38.0 H VBG Total CO2 40.0 H VBG O2 Saturation 57.6 VBG Base Excess 10 H A/P Narrative A/P Narrative: Assessment: *Acute on chronic hypercapnic and hypoxic respiratory failure: 2/2 chf -on bipap initially, now 1-2L NC *acute on chronic diastolic Congestive heart failure: -echo EF wnl, mod TR *chronic A-fib w/RVR: *Encephalopathy: Secondary to above -CT head negative *UTI (Enterococcus faecium): *Obstructive sleep apnea on CPAP: *Diabetes mellitus 2 *Hypertension, but soft BP currently. suspect home BB likely initiated for rate control and not HTN *Morbid obesity: bmi 48, Lifestyle modification *Recent hospitalization for COVID requiring intubation @ [facility] *GERD: Plan: -iv lasix, f/u cxr -Patient in compensated hypercapnic respiratory failure, weaned off BiPAP, continue pulmonary toileting -Continue pulmonary toileting, BiPAP as needed, supplemental oxygen to continue and wean as tolerated -ampicillin for UTI -CMP -IV Lasix, possibly start home torsemide tomorrow -Strict I's and O's, daily weight, monitor uop -Monitor and replace electrolytes -echo report pending -Continue metoprolol for rate control and Eliquis for anticoagulation -Metformin, SSI -ppx: apixaban / home H2 Full code Time Spent With Patient Time: Total time spent is greater than 50% in coordination of care (as documented) at patient's floor/unit and/or counseling patient: Subsequent: Total time with patient: 50 - 65 Minutes QUALITY VTE Deep Vein Thrombosis/Pulmonary Embolism Present on Admission: No
[2022-11-26] MEDS: CLOPIDOGREL 75 MG TABLET PO SCH (08:16)
[2022-11-26] MEDS: DOCUSATE SODIUM 100 MG CAPSULE PO SCH ×2 (08:16→20:52)
[2022-11-26] MEDS: INSULIN LISPRO 1 UNIT/0.01 ML UNIT SQ SCH ×4 (08:16→20:53)
[2022-11-26] MEDS: APIXABAN 5 MG TABLET PO SCH ×2 (08:17→21:05)
[2022-11-26] MEDS: METOPROLOL SUCCINATE 50 MG TAB.XL.24H PO SCH (08:17)
[2022-11-26] MEDS: FAMOTIDINE 20 MG TABLET PO SCH ×2 (08:17→21:05)
[2022-11-26] MEDS: MULTIVIT,THER IRON,CA,FA & MIN 1 TABLET PO SCH (08:17)
[2022-11-26] MEDS: metFORMIN 500 MG TABLET PO SCH ×2 (08:17→17:34)
[2022-11-26] MEDS: LORATADINE 10 MG TABLET PO SCH (08:19)
[2022-11-26] MEDS: FLUTICASONE PROPIONATE SPRAY.NAS NS SCH (08:41)
[2022-11-26] MEDS: carBAMazepine 200 MG TAB.SR.12H PO SCH ×2 (08:41→20:53)
[2022-11-26] MEDS: FISH OIL 1,000 MG CAPSULE PO SCH ×3 (08:41→20:53)
[2022-11-26] MEDS: POTASSIUM CHLORIDE 10 MEQ TABLET PO SCH (08:42)
[2022-11-26] MEDS: METOPROLOL TARTRATE 5 MG/5 ML VIAL IV PRN ×5 (09:35→23:36)
--- NOTE | 2022-11-26 12:15 | Discharge Summary ---
Discharge Provider Provider IMPORTANT FOLLOW-UP INFORMATION FOR PCP: Patient information: Note initiated : 11/26/22 at 12:11 pm Service Date, if different from initiated Date: [] Patient: Sheila Joseph 67 y/o F admitted on 11/23/22 for AMS. Chief Complaint: [] Date of admission: 11/23/22 21:37 Discharge date: 11/30/22 Primary care physician: Maik Acharya Consults: 11/23/22 17:33 Consult to Physician [CONS] Stat Comment: Consulting Provider: Junior Sherwood Reason For Exam: Physician to Consult COURSE Hospital Course Hospital course: History of present illness: Patient is a 67 years old female with multiple comorbidities including DM2, HTN, CHF, JO on CPAP, morbid obesity, chronic hypoxic resp failure on 3L NC O2 presented with altered mental status, confusion, somnolence and generalized weakness. Patient was admitted to [facility] on 11/10/2022 for COVID-19, respiratory failure and was intubated for 3 to 4 days, she was discharged on 11/17/1902/28/2023 to long term facility. Daughter reports she was also diagnosed with A-fib during that admission. According to family patient was doing better for couple days however then she was noted to be more confused, increased somnolence, mental status would wax and wane. Daughter reports patient had soft voice, she was unable to clear her throat due to weakness. At the facility urine culture was done but results are not back yet. On presentation patient was somnolent and confused. Patient was tachypneic and tachycardic with heart rate in 130s-150s. VBG showed pH of 7.38, PCO2 65. WBC 11.5, sodium 148, BNP 2137, normal renal functions. UA was positive for blood, leukocyte esterase, RBCs and WBCs. Chest x-ray showed vascular congestion. Rapid COVID positive but flu negative. CT head negative for acute finding. EKG showed A-fib with RVR, ventricular rate 115 bpm. Patient was placed on BiPAP and will be admitted to PCU for acute acute respiratory failure with hyp ercapnia, acute encephalopathy, UTI, A-fib with RVR and CHF. 11/24. Patient was very more alert, ABG shows compensated hypercapnic respiratory failure, was still CO2 pretty high, discussed with RT and change the BiPAP setting. Will repeat ABGs later. Leukocytosis has resolved. Urine culture pending. Patient's rapid COVID was positive in ER. Patient A-fib rate controlled is not adequate, will give IV metoprolol now 11/25 patient is mentating at baseline, repeat ABG this morning and earlier showed she is in compensated hypercapnic respiratory failure with PCO2 around 61. pH was 7.41. Patient coherent alert and oriented. Leukocytosis remains absent. Urine culture from 11/23 positive for Enterococcus faecium sensitivities pending, tmax 99.4F, will DC ceftriaxone and start Unasyn which will likely cover for UTI and for her respiratory issues. Per infectious control nurse, patient will remain in precautions for now and will reevaluate tomorrow 11/26 Patient says she is feeling better. Minimal cough mostly with nebulizers. Shortness of breath She says not really noticeable at rest. Awaiting echo report. Patient on 1 to 2 L nasal cannula overnight. We will continue weaning down. 11/27 Patient doing well and on lower level of oxygen needs and typical home regimen. Patient stable for discharge 11/28 Patient says she is feeling better today. Heart rate still difficult to control seems to be generally showing some improvement but still not optimized.on amio gtt still, increase bb. 11/29 Patient slept all right. Heart rate still fluctuates quite a bit but not as high as it was and have had some rates in the 80s. Continue on amiodarone and metoprolol tartrate. 11/30 Had good heart rate overnight. Little elevated this morning before medications but improving after morning medications. Patient stable for discharge and to follow-up with cardiology. Assessment: *Acute on chronic hypercapnic and hypoxic respiratory failure: 2/2 chf *acute on chronic diastolic Congestive heart failure: -echo EF wnl, mod TR *chronic A-fib w/RVR: *Encephalopathy: Secondary to above *UTI (Enterococcus faecium): finished abx *Obstructive sleep apnea on CPAP: *Diabetes mellitus 2 *Hypertension, but soft BP currently. 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 Secondary discharge diagnosis: Chronic A-fib with RVR Encephalopathy Enterococcus UTI JO diabetes hypertension obesity GERD Time Spent with Patient Time attestation: Total time spent providing and/or coordinating discharge services: Time spent: Greater than 30 minutes EXAM Constitutional Vitals: Temp Pulse Resp BP Pulse Ox O2 Del Method O2 Flow Rate 97.2 F 110 H 18 99/86 95 Nasal Cannula 2 11/26/22 07:24 11/26/22 07:10 11/26/22 07:10 11/26/22 04:00 11/26/22 10:10 11/26/22 10:10 11/26/22 10:10 Discharge Data Data Completed and Pending Labs on day of discharge: Labs from last 24 hours 11/26/22 05:24 Sodium 144 Potassium 3.5 Chloride 104 Carbon Dioxide 34 H Anion Gap 6.0 L BUN 16 Creatinine 0.5 L GFR Calculation 99 Glucose 89 Uric Acid 5.1 Calcium 8.1 L Phosphorus 2.3 L Magnesium 1.9 Total Bilirubin 0.5 Direct Bilirubin 0.2 GGT 41 H AST 19 ALT 19 Alkaline Phosphatase 62 Lactate Dehydrogenase 242 H Total Protein 5.7 L Albumin 2.9 L Globulin 2.8 Albumin/Globulin Ratio 1.0 Triglycerides 132 Discharge Plan Patient/Caregiver Discharge Instructions Activity: increase activity as tolerated Diet: Consistent Carbohydrate Prescriptions: New amiodarone 200 mg Tablet 400 mg PO BIDCC Qty: 40 0RF metoprolol tartrate 50 mg Tablet 100 mg PO BID Qty: 120 0RF Continued famotidine 20 mg Tablet 20 mg PO BID ergocalciferol (vitamin D2) 1,250 mcg (50,000 unit) Capsule 1,250 mcg PO Q7D fluticasone propionate 50 mcg/actuation [place],Suspension 2 spray INTRANASAL QDAY Rx Instructions: administer into each nostril omega 7-[id number]-mql-fish oil [Fish Oil] 1,000 mg (120 mg-180 mg) Capsule 1 cap PO TID Eliquis 5 mg Tablet 5 mg PO BID albuterol sulfate 90 mcg/actuation Aerosol Powdr Breath Activated 1 - 2 inh INHALATION Q4H PRN (Reason: Shortness Of Breath Or Wheezing) Gvoke HypoPen 1-Pack 1 mg/0.2 mL Auto-Injector 1 mg SUBCUT ONCE PRN (Reason: Hypoglycemia) Rx Instructions: as a single dose; may repeat once after 15 minutes if no response metformin 500 mg Tablet 1,000 mg PO QDAY metformin 500 mg Tablet 500 mg PO QPMCC acetaminophen [Tylenol] 325 mg Tablet 325 - 650 mg PO Q6HP PRN (Reason: Pain) torsemide 20 mg Tablet 20 mg PO QAM potassium chloride 10 mEq Tablet Extended Release 10 meq PO QDAY triamcinolone acetonide 0.1 % Cream 1 applic TOPICAL PRN PRN (Reason: Skin Irritation) Adults Multivitamin 18 mg iron-400 mcg-25 mcg Tablet 1 tab PO DAILY fexofenadine 180 mg Tablet 180 mg PO QDAY PRN (Reason: Allergy Symptoms) Changed furosemide 40 mg Tablet 40 mg PO DAILY Qty: 1 0RF lisinopril 5 mg Tablet 2.5 mg PO QDAY Qty: 1 0RF Discontinued metoprolol succinate 50 mg Capsule,Sprinkle,Er 24hr 150 mg PO QDAY carvedilol 3.125 mg Tablet 3.125 mg PO BID Rx Instructions: must administer with a meal/food diltiazem HCl 180 mg Capsule,Extended Release 24 Hr 180 mg PO QAM Other Ambulatory Orders: OT Discharge Order (Routine) Facility: [facility] - Location: Conversion-Longterm Ordered By: Lupillo Mendoza Physical Therapy at Discharge - General (Routine) Facility: [facility] - Location: Conversion-Longterm Ordered By: Lupillo Mendoza Follow Up Plan Follow up with: Maik Lamas [Physician] - (afib) Maik Acharya MD [Primary Care Provider] - Patient Disposition: Xfer SNF Prognosis: Fair Rehab Potential: Fair I certify that the patient requires SNF services: Yes Overall status at discharge: patient is progressing back to baseline Discharge Orders: Discharge Order (Routine); Ordered 11/30/22 Ordered By: Lupillo Mendoza QUALITY VTE Deep Vein Thrombosis/Pulmonary Embolism Present on Admission: No
[2022-11-26] MEDS ORDERED: DEXTROSE 5%-NS 1,000 ML IV SCH (13:00)
[2022-11-26] MEDS: SENNOSIDES 1 TABLET PO SCH (20:53)
[2022-11-26] MEDS: ATORVASTATIN 10 MG TABLET PO SCH (21:05)
[2022-11-27] MEDS: IPRATROPIUM/ALBUTEROL 3 ML AMPUL.NEB NEB SCH ×4 (01:32→20:21)
[2022-11-27] MEDS: METOPROLOL TARTRATE 5 MG/5 ML VIAL IV PRN ×3 (01:59→06:40)
[2022-11-27] MEDS: 0.9 % SODIUM CHLORIDE 10 ML SYRINGE IV SCH ×4 (05:52→22:02)
[2022-11-27] MEDS: AMPICILLIN SODIUM/SULBACTAM NA 1.5 GM in 0.9 % SODIUM CHLORIDE 50 ML IV SCH ×3 (05:52→18:00)
[2022-11-27] MEDS: INSULIN LISPRO 1 UNIT/0.01 ML UNIT SQ SCH ×4 (07:25→22:01)
[2022-11-27] MEDS: ACETAMINOPHEN 325 MG TABLET PO PRN (09:22)
[2022-11-27] MEDS: APIXABAN 5 MG TABLET PO SCH ×2 (09:23→21:57)
[2022-11-27] MEDS: metFORMIN 500 MG TABLET PO SCH ×2 (09:23→18:00)
[2022-11-27] MEDS: POTASSIUM CHLORIDE 10 MEQ TABLET PO SCH (09:23)
[2022-11-27] MEDS: CLOPIDOGREL 75 MG TABLET PO SCH (09:23)
[2022-11-27] MEDS: METOPROLOL SUCCINATE 50 MG TAB.XL.24H PO SCH (09:23)
[2022-11-27] MEDS: FAMOTIDINE 20 MG TABLET PO SCH ×2 (09:23→21:57)
[2022-11-27] MEDS: MULTIVIT,THER IRON,CA,FA & MIN 1 TABLET PO SCH (09:23)
[2022-11-27] MEDS: LORATADINE 10 MG TABLET PO SCH (09:23)
[2022-11-27] MEDS: DOCUSATE SODIUM 100 MG CAPSULE PO SCH ×2 (09:24→22:01)
[2022-11-27] MEDS: FISH OIL 1,000 MG CAPSULE PO SCH ×3 (09:24→22:01)
[2022-11-27] MEDS: FLUTICASONE PROPIONATE SPRAY.NAS NS SCH (09:24)
[2022-11-27] MEDS: carBAMazepine 200 MG TAB.SR.12H PO SCH ×2 (09:27→22:02)
[2022-11-27] MEDS ORDERED: cloNIDine HCL 0.1 MG TABLET PO SCH (10:00)
--- NOTE | 2022-11-27 10:22 | Internal Med Progress Note ---
SUBJECTIVE Subjective Patient information: Note initiated : 11/27/22 at 10:14 am Service Date, if different from initiated Date: [] Patient: Sheila Joseph 67 y/o F admitted on 11/23/22 for AMS. Chief Complaint: [] Interval history: History of present illness: Patient is a 67 years old female with multiple comorbidities including DM2, HTN, CHF, JO on CPAP, morbid obesity, chronic hypoxic resp failure on 3L NC O2 presented with altered mental status, confusion, somnolence and generalized weakness. Patient was admitted to [facility] on 11/10/2022 for COVID-19, respiratory failure and was intubated for 3 to 4 days, she was discharged on 11/17/1902/28/2023 to custodial facility. Daughter reports she was also diagnosed with A-fib during that admission. According to family patient was doing better for couple days however then she was noted to be more confused, increased somnolence, mental status would wax and wane. Daughter reports patient had soft voice, she was unable to clear her throat due to weakness. At the facility urine culture was done but results are not back yet. On presentation patient was somnolent and confused. Patient was tachypneic and tachycardic with heart rate in 130s-150s. VBG showed pH of 7.38, PCO2 65. WBC 11.5, sodium 148, BNP 2137, normal renal functions. UA was positive for blood, leukocyte esterase, RBCs and WBCs. Chest x-ray showed vascular congestion. Rapid COVID positive but flu negative. CT head negative for acute finding. EKG showed A-fib with RVR, ventricular rate 115 bpm. Patient was placed on BiPAP and will be admitted to PCU for acute acute respiratory failure with hypercapnia, acute encephalopathy, UTI, A-fib with RVR and CHF. 11/24. Patient was very more alert, ABG shows compensated hypercapnic respiratory failure, was still CO2 pretty high, discussed with RT and change the BiPAP setting. Will repeat ABGs later. Leukocytosis has resolved. Urine culture pending. Patient's rapid COVID was positive in ER. Patient A-fib rate controlled is not adequate, will give IV metoprolol now 11/25 patient is mentating at baseline, repeat ABG this morning and earlier showed she is in compensated hypercapnic respiratory failure with PCO2 around 6 1. pH was 7.41. Patient coherent alert and oriented. Leukocytosis remains absent. Urine culture from 11/23 positive for Enterococcus faecium sensitivities pending, tmax 99.4F, will DC ceftriaxone and start Unasyn which will likely cover for UTI and for her respiratory issues. Per infectious con trol nurse, patient will remain in precautions for now and will reevaluate tomorrow 11/26 Patient says she is feeling better. Minimal cough mostly with nebulizers. Shortness of breath She says not really noticeable at rest. Awaiting echo report. Patient on 1 to 2 L nasal cannula overnight. We will continue weaning down. 11/27 Patient heart rate not optimized. She is getting fluctuations up to 150 per nurse. BP soft. Otherwise no overnight events or new complaints. Follow-up labs for electrolytes. We will start on amnio load, transferred to back to the PCU. Review of Systems: denies headache/fever/chills/nausea/vomiting/chest or abdominal pain/diarrhea. Otherwise see above. PHYSICAL EXAM General: Alert, Awake, No acute Distress, obese Eyes/N/T: EOMI, no scleral icterus, Head/Neck: neck supple, full ROM, CV: irregularly irregular and tachy, No murmurs, Pulm: occ rales at bases, no wheezing, no respiratory distress Abd: soft, nontender, +BS x4 Ext: no clubbing/cyanosis, b/l LE trace edema, nontender Neuro: Alert, no focal deficits, moves all extremities, , sensations intact b/l upper/lower Psychiatric: Skin: warm/dry, normal color Constitutional Vitals: Vital Signs Temp Pulse Resp BP Pulse Ox O2 Del Method O2 Flow Rate 98.0 F 109 H 20 103/61 96 Nasal Cannula 1.5 11/27/22 08:00 11/27/22 08:00 11/27/22 08:00 11/27/22 08:00 11/27/22 08:00 11/27/22 08:00 11/27/22 08:00 Period Temp Pulse Resp BP Sys/Lou Pulse Ox O2 Del Method O2 Flow Rate Last 24 Hr 98 F-98.4 F 62-130 14-22 95-113/61-92 91-100 BiPAP-Room Air 1.5-3 Intake and Output 0511/27/22 11/27/22 19:59 03:59 11:59 Intake Total 580 100 250 Output Total 375 250 Balance 205 -150 250 Weight 131.995 kg Intake & Output: Intake & Output 11/26/22 11/27/22 11/27/22 19:59 03:59 11:59 Intake Total 580 100 250 Output Total 375 250 Balance 205 -150 250 Weight 131.995 kg Intake: IV 100 100 50 Unasyn 1.5 gm In Sodium 50 100 50 Chloride 0.9% 50 ml @ 100 mls/ hr IV Q6H [facility] Rx#:[id number] Oral 480 200 Output: Void Amount 375 Urine/Stool Mix 250 Other: Meal Dinner Percent of Meal Consumed 100% Feeding Ability Independent Urine Appearance Clear Urine Color Yellow Urine Odor Normal Stool Size Moderate Small Stool Color Brown Brown Stool Consistency Normal for Patient Soft Formed # Bowel Movements 1 OBJ DATA Labs 11/25/22 05:59 11/26/22 05:24 Labs: Abnormal Lab Results 11/26/22 11/25/22 11/25/22 05:24 07:14 07:05 MCHC RDW Immature Gran % (Auto) Lymph % (Auto) Lymph # (Auto) Immature Gran # POC pCO2 61.5 H* POC pO2 POC HCO3 39.3 H POC Total CO2 41.0 H POC ABG Base Excess 15.0 H Hgb O2 Saturation 98.0 H Carbon Dioxide 34 H 37 H Anion Gap 6.0 L 5.0 L Creatinine 0.5 L 0.5 L Calcium 8.1 L Phosphorus 2.3 L GGT 41 H Lactate Dehydrogenase 242 H Total Protein 5.7 L Albumin 2.9 L 3.0 L Albumin/Globulin Ratio 0.9 L 11/25/22 11/24/22 11/24/22 05:59 20:08 11:29 MCHC 29.7 L RDW 15.0 H Immature Gran % (Auto) 0.7 H Lymph % (Auto) 15.2 L Lymph # (Auto) 1.30 L Immature Gran # 0.06 H POC pCO2 61.0 H* 66.0 H* POC pO2 56 L POC HCO3 41.2 H 42.8 H POC Total CO2 43.0 H* 45.0 H* POC ABG Base Excess 17.0 H 18.0 H Hgb O2 Saturation 89.0 L Carbon Dioxide Anion Gap Creatinine Calcium Phosphorus GGT Lactate Dehydrogenase Total Protein Albumin Albumin/Globulin Ratio Meds: Medications Acetaminophen (Acetaminophen 325 Mg Tablet) 650 mg PO Q6HP PRN; Protocol PRN Reason: Per Pain Protocol/Fever > 101 Last Admin: 11/27/22 09:22 Dose: 650 mg Hydrocodone Bitart/Acetaminophen (Hydrocodone/Apap 5/325mg Tablet) 1 tab PO Q4HP PRN; Protocol PRN Reason: Per Pain Protocol Albuterol/Ipratropium (Ipratropium/Albuterol 3 Ml Ampul.Neb) 3 ml NEB Q6HRT [facility] Last Admin: 11/27/22 07:31 Dose: 3 ml Apixaban (Apixaban 5 Mg Tablet) 5 mg PO BID [facility] Last Admin: 11/27/22 09:23 Dose: 5 mg Atorvastatin Calcium (Atorvastatin 10 Mg Tablet) 10 mg PO HS [facility] Last Admin: 11/26/22 21:05 Dose: 10 mg Carbamazepine (Carbamazepine 200 Mg Tab.Sr.12h) 700 mg PO BID [facility] Last Admin: 11/27/22 09:27 Dose: Not Given Clonidine HCl (Clonidine Hcl 0.1 Mg Tablet) 0.2 mg PO ONCE [facility] Stop: 11/27/22 12:00 Clopidogrel Bisulfate (Clopidogrel 75 Mg Tablet) 75 mg PO QDAY [facility] Last Admin: 11/27/22 09:23 Dose: 75 mg Dextrose (Dextrose 50% 50 Ml Vial) 0 ml IV UD PRN PRN Reason: Per Sliding Scale Diagnostic Test (Pha) (Accu-Chek 1 Each Strip) 1 each FS ACHS [facility] Last Admin: 11/27/22 07:25 Dose: 1 each Docusate Sodium (Docusate Sodium 100 Mg Capsule) 100 mg PO BID [facility] Last Admin: 11/27/22 09:24 Dose: Not Given Ergocalciferol (Ergocalciferol (Vitamin D2) 50,000 Unit Capsule) 50,000 unit PO Q7D [facility] Famotidine (Famotidine 20 Mg Tablet) 20 mg PO BID [facility] Last Admin: 11/27/22 09:23 Dose: 20 mg Fish Oil (Fish Oil 1,000 Mg Capsule) 1,000 mg PO TID [facility] Last Admin: 11/27/22 09:24 Dose: Not Given Fluticasone Propionate (Fluticasone Propionate [place].Livan) 2 spray NS QDAY [facility] Last Admin: 11/27/22 09:24 Dose: Not Given Glucose (Dextrose 31 Gm Oral.Susp) 15 gm PO PRN PRN PRN Reason: Hypoglycemia Ampicillin Sodium/Sulbactam (Sodium 1.5 gm/ Sodium Chloride) 50 mls @ 100 mls/hr IV Q6H [facility] Last Infusion: 11/27/22 06:33 Dose: Infused Insulin Human Lispro (Insulin Lispro 1 Unit/0.01 Ml Unit) 0 unit SQ ACHS [facility]; P rotocol Last Admin: 11/27/22 07:25 Dose: Not Given Iron Carb/Multivit/[place]/Folic Acid (Multivit,Ther Iron,Ca,Fa & Min 1 Tablet) 1 tab PO DAILY [facility] Last Admin: 11/27/22 09:23 Dose: Not Given Loratadine (Loratadine 10 Mg Tablet) 10 mg PO DAILY [facility] Last Admin: 11/27/22 09:23 Dose: 10 mg Metformin HCl (Metformin 500 Mg Tablet) 1,000 mg PO QDAY [facility] Last Admin: 11/27/22 09:23 Dose: 1,000 mg Metformin HCl (Metformin 500 Mg Tablet) 500 mg PO QPMCC [facility] Last Admin: 11/26/22 17:34 Dose: 500 mg Metoprolol Succinate (Metoprolol Succinate 50 Mg Tab.Xl.24h) 150 mg PO DAILY [facility] Last Admin: 11/27/22 09:23 Dose: 150 mg Metoprolol Tartrate (Metoprolol Tartrate 5 Mg/5 Ml Vial) 5 mg IV Q2HP PRN PRN Reason: Tachyarrhythmias HR>110 Last Admin: 11/27/22 06:40 Dose: 5 mg Ondansetron HCl (Ondansetron 4 Mg/2 Ml Vial) 4 mg IV Q6HP PRN PRN Reason: Nausea And Vomiting Zolmitriptan [Zomig] (2.5 Mg Tablet) 1 dose PO DAILYP PRN PRN Reason: Migraine Headache Potassium Chloride (Potassium Chloride 10 Meq Tablet) 10 meq PO QDAY [facility] Last Admin: 11/27/22 09:23 Dose: 10 meq Senna (Sennosides 1 Tablet) 2 tab PO HS [facility] Last Admin: 11/26/22 20:53 Dose: Not Given Sodium Chloride (0.9 % Sodium Chloride 10 Ml Syringe) 10 ml IV Q8 [facility] Last Admin: 11/27/22 06:41 Dose: 10 ml Triamcinolone Acetonide (Triamcinolone Cream 0.1% 15g 1 Dose Tube) 1 dose TOPICAL DAILYP PRN PRN Reason: Skin Irritation ABG Interpretation ABG results: 11/23/22 14:45 ABG Methemoglobin 0.3 L VBG pH 7.38 VBG pCO2 65.9 H* VBG pO2 31.7 VBG HCO3 38.0 H VBG Total CO2 40.0 H VBG O2 Saturation 57.6 VBG Base Excess 10 H A/P Narrative A/P Narrative: Assessment: *Acute on chronic hypercapnic and hypoxic respiratory failure: 2/2 chf -on bipap initially, now 1-2L NC *acute on chronic diastolic Congestive heart failure: -echo EF wnl, mod TR *chronic A-fib w/RVR: difficult rate control *Encephalopathy: Secondary to above -CT head negative *UTI (Enterococcus faecium): *Obstructive sleep apnea on CPAP: *Diabetes mellitus 2 *Hypertension, but soft BP currently. suspect home BB likely initiated for rate control and not HTN *Morbid obesity: bmi 48, Lifestyle modification *Recent hospitalization for COVID requiring intubation @ [facility] *GERD: Plan: -amio load, transfer back to PCU -cont home toprol -ekg pending -IV lasix to home torsemide -Patient in compensated hypercapnic respiratory failure, weaned off BiPAP, continue pulmonary toileting -Continue pulmonary toileting, BiPAP as needed, supplemental oxygen to continue and wean as tolerated -ampicillin for UTI -CMP -Strict I's and O's, daily weight, monitor uop -Monitor and replace electrolytes -echo report pending -Eliquis for anticoagulation -Metformin, SSI -ppx: apixaban / home H2 Full code Time Spent With Patient Time: Total time spent is greater than 50% in coordination of care (as documented) at patient's floor/unit and/or counseling patient: Subsequent: Total time with patient: 50 - 65 Minutes QUALITY VTE Deep Vein Thrombosis/Pulmonary Embolism Present on Admission: No
[2022-11-27] MEDS ORDERED: AMIODARONE 150 MG in DEXTROSE 5% IN WATER 50 ML IV SCH (10:49)
[2022-11-27] MEDS ORDERED: AMIODARONE 360 MG in PREMIX 1 BAG IV SCH (11:00)
[2022-11-27] MEDS: TORSEMIDE 20 MG TABLET PO SCH (11:00)
[2022-11-27 11:47] LABS: ALT/SGPT 18 U/L (<40); AST/SGOT 16 U/L (<32); Albumin 3.3 gm/dL (3.2-5.2); Albumin/Globulin Ratio 1.1 (1.0-2.3); Alkaline Phosphatase 67 U/L (39-117); Bilirubin,Direct 0.2 mg/dL (<0.3); Bilirubin,Total 0.5 mg/dL (0.1-1.0); Blood Urea Nitrogen 14 mg/dL (8-23); Calcium 8.6 mg/dL (8.6-10.4); Carbon Dioxide 32 mmol/L (22-30); Chloride 101 mmol/L (96-108); Globulin 3.1 gm/dL (2.2-3.7); Glomerular Filtration Rate 93; Glucose 145 mg/dL (70-105); Lactate Dehydrogenase 260 U/L (135-225); Phosphorous 1.9 mg/dL (2.5-4.5); Triglycerides 202 mg/dL (<150); Uric Acid 5.5 mg/dL (2.5-8.0)
[2022-11-27] MEDS: NEUTRA PHOS 1 PACKET PO SCH ×2 (13:21→21:57)
[2022-11-27] MEDS: AMIODARONE 360 MG in PREMIX 1 BAG IV SCH (17:06)
[2022-11-27] MEDS: ATORVASTATIN 10 MG TABLET PO SCH (21:57)
[2022-11-27] MEDS: SENNOSIDES 1 TABLET PO SCH (22:02)
[2022-11-28] MEDS: AMPICILLIN SODIUM/SULBACTAM NA 1.5 GM in 0.9 % SODIUM CHLORIDE 50 ML IV SCH ×4 (01:38→17:29)
[2022-11-28] MEDS: IPRATROPIUM/ALBUTEROL 3 ML AMPUL.NEB NEB SCH ×4 (01:38→18:56)
[2022-11-28] MEDS: AMIODARONE 360 MG in PREMIX 1 BAG IV SCH (04:58)
[2022-11-28] MEDS: 0.9 % SODIUM CHLORIDE 10 ML SYRINGE IV SCH ×3 (06:04→20:48)
[2022-11-28 06:37] LABS: ALT/SGPT 16 U/L (<40); AST/SGOT 17 U/L (<32); Albumin 3.2 gm/dL (3.2-5.2); Alkaline Phosphatase 66 U/L (39-117); Bilirubin,Direct < 0.2 mg/dL (0-0.3); Bilirubin,Total 0.5 mg/dL (0.1-1.0); Blood Urea Nitrogen 13 mg/dL (8-23); Calcium 8.6 mg/dL (8.6-10.4); Carbon Dioxide 32 mmol/L (22-30); Chloride 103 mmol/L (96-108); Globulin 3.1 gm/dL (2.2-3.7); Glomerular Filtration Rate 93; Glucose 110 mg/dL (70-105); Lactate Dehydrogenase 232 U/L (135-225); Phosphorous 3.3 mg/dL (2.5-4.5); Triglycerides 167 mg/dL (<150); Uric Acid 6.7 mg/dL (2.5-8.0)
[2022-11-28] MEDS: INSULIN LISPRO 1 UNIT/0.01 ML UNIT SQ SCH ×4 (08:02→20:43)
--- NOTE | 2022-11-28 08:16 | Internal Med Progress Note ---
SUBJECTIVE Subjective Patient information: Note initiated : 11/28/22 at 8:13 am Service Date, if different from initiated Date: [] Patient: Sheila Joseph 67 y/o F admitted on 11/23/22 for AMS. Chief Complaint: [] Interval history: History of present illness: Patient is a 67 years old female with multiple comorbidities including DM2, HTN, CHF, JO on CPAP, morbid obesity, chronic hypoxic resp failure on 3L NC O2 presented with altered mental status, confusion, somnolence and generalized weakness. Patient was admitted to [facility] on 11/10/2022 for COVID-19, respiratory failure and was intubated for 3 to 4 days, she was discharged on 11/17/1902/28/[facility] to [facility]. Daughter reports she was also diagnosed with A-fib during that admission. According to family patient was doing better for couple days however then she was noted to be more confused, increased somnolence, mental status would wax and wane. Daughter reports patient had soft voice, she was unable to clear her throat due to weakness. At the facility urine culture was done but results are not back yet. On presentation patient was somnolent and confused. Patient was tachypneic and tachycardic with heart rate in 130s-150s. VBG showed pH of 7.38, PCO2 65. WBC 11.5, sodium 148, BNP 2137, normal renal functions. UA was positive for blood, leukocyte esterase, RBCs and WBCs. Chest x-ray showed vascular congestion. Rapid COVID positive but flu negative. CT head negative for acute finding. EKG showed A-fib with RVR, ventricular rate 115 bpm. Patient was placed on BiPAP and will be admitted to PCU for acute acute respiratory failure with hypercapnia, acute encephalopathy, UTI, A-fib with RVR and CHF. 11/24. Patient was very more alert, ABG shows compensated hypercapnic respiratory failure, was still CO2 pretty high, discussed with RT and change the BiPAP setting. Will repeat ABGs later. Leukocytosis has resolved. Urine culture pending. Patient's rapid COVID was positive in ER. Patient A-fib rate controlled is not adequate, will give IV metoprolol now 11/25 patient is mentating at baseline, repeat ABG this morning and earlier showed she is in compensated hypercapnic respiratory failure with PCO2 around 61 . pH was 7.41. Patient coherent alert and oriented. Leukocytosis remains absent. Urine culture from 11/23 positive for Enterococcus faecium sensitivities pending, tmax 99.4F, will DC ceftriaxone and start Unasyn which will likely cover for UTI and for her respiratory issues. Per infectious cont rol nurse, patient will remain in precautions for now and will reevaluate tomorrow 11/26 Patient says she is feeling better. Minimal cough mostly with nebulizers. Shortness of breath She says not really noticeable at rest. Awaiting echo report. Patient on 1 to 2 L nasal cannula overnight. We will continue weaning down. 11/27 Patient heart rate not optimized. She is getting fluctuations up to 150 per nurse. BP soft. Otherwise no overnight events or new complaints. Follow-up labs for electrolytes. We will start on amnio load, transferred to back to the PCU. 11/28 Patient says she is feeling better today. Heart rate still difficult to control seems to be generally showing some improvement but still not optimized.on amio gtt still, increase bb. Review of Systems: denies headache/fever/chills/nausea/vomiting/chest or abdominal pain/diarrhea. Otherwise see above. PHYSICAL EXAM General: Alert, Awake, No acute Distress, obese Eyes/N/T: EOMI, no scleral icterus, Head/Neck: neck supple, full ROM, CV: irregularly irregular and tachy, No murmurs, Pulm: occ rales at bases, no wheezing, no respiratory distress Abd: soft, nontender, +BS x4 Ext: no clubbing/cyanosis, b/l LE trace edema, nontender Neuro: Alert, no focal deficits, moves all extremities, , sensations intact b/l upper/lower Psychiatric: Skin: warm/dry, normal color Constitutional Vitals: Vital Signs Temp Pulse Resp BP Pulse Ox O2 Del Method O2 Flow Rate 98.3 F 90 18 97/83 98 Nasal Cannula 3 11/28/22 08:01 11/28/22 04:00 11/28/22 04:00 11/28/22 08:01 11/28/22 08:01 11/28/22 08:01 11/28/22 07:10 Period Temp Pulse Resp BP Sys/Lou Pulse Ox O2 Del Method O2 Flow Rate Last 24 Hr 97.5 F-98.3 F 66-130 14-18 84-117/48-94 94-99 Nasal Cannula- Room Air 0.5-94 Intake and Output 11/27/22 11/28/22 11/28/22 19:59 03:59 11:59 Intake Total 700 50 248 Output Total 125 1 Balance 575 49 248 Weight 131.995 kg 138.709 kg Intake & Output: Intake & Output 11/27/22 11/28/22 11/28/22 19:59 03:59 11:59 Intake Total 700 50 248 Output Total 125 1 Balance 575 49 248 Weight 131.995 kg 138.709 kg Intake: IV 300 50 248 Nexterone 360 mg In Premix 1 200 198 Bag @ 0.5 MG/MIN 16.667 mls/hr IV .Q12H [facility] Rx#:[id number] Unasyn 1.5 gm In Sodium 100 50 50 Chloride 0.9% 50 ml @ 100 mls/ hr IV Q6H [facility] Rx#:[id number] Oral 400 Output: Void Amount 125 # of times incontinent of urine 1 Other: Urine Appearance Clear Urine Color Yellow Stool Size Moderate Stool Color Yellow Stool Consistency Soft Loose # Voids 2 1 # Bowel Movements 1 # Em[place] 0 OBJ DATA Labs 11/25/22 05:59 11/28/22 05:18 Labs: Abnormal Lab Results 11/28/22 11/27/22 11/26/22 05:18 10:36 05:24 Carbon Dioxide 32 H 32 H 34 H Anion Gap 7.0 L 6.0 L Creatinine 0.5 L Glucose 110 H 145 H Calcium 8.1 L Phosphorus 1.9 L 2.3 L GGT 42 H 42 H 41 H Lactate Dehydrogenase 232 H 260 H 242 H Total Protein 5.7 L Albumin 2.9 L Albumin/Globulin Ratio Triglycerides 167 H 202 H 11/25/22 07:05 Carbon Dioxide 37 H Anion Gap 5.0 L Creatinine 0.5 L Glucose Calcium Phosphorus GGT Lactate Dehydrogenase Total Protein Albumin 3.0 L Albumin/Globulin Ratio 0.9 L Triglycerides Meds: Medications Acetaminophen (Acetaminophen 325 Mg Tablet) 650 mg PO Q6HP PRN; Protocol PRN Reason: Per Pain Protocol/Fever > 101 Last Admin: 11/27/22 09:22 Dose: 650 mg Hydrocodone Bitart/Acetaminophen (Hydrocodone/Apap 5/325mg Tablet) 1 tab PO Q4HP PRN; Protocol PRN Reason: Per Pain Protocol Albuterol/Ipratropium (Ipratropium/Albuterol 3 Ml Ampul.Neb) 3 ml NEB Q6HRT [facility] Last Admin: 11/28/22 07:13 Dose: 3 ml Apixaban (Apixaban 5 Mg Tablet) 5 mg PO BID [facility] Last Admin: 11/27/22 21:57 Dose: 5 mg Atorvastatin Calcium (Atorvastatin 10 Mg Tablet) 10 mg PO HS [facility] Last Admin: 11/27/22 21:57 Dose: 10 mg Carbamazepine (Carbamazepine 200 Mg Tab.Sr.12h) 700 mg PO BID [facility] Last Admin: 11/27/22 22:02 Dose: Not Given Clopidogrel Bisulfate (Clopidogrel 75 Mg Tablet) 75 mg PO QDAY [facility] Last Admin: 11/27/22 09:23 Dose: 75 mg Dextrose (Dextrose 50% 50 Ml Vial) 0 ml IV UD PRN PRN Reason: Per Sliding Scale Diagnostic Test (Pha) (Accu-Chek 1 Each Strip) 1 each FS ACHS [facility] Last Admin: 11/28/22 08:02 Dose: 1 each Docusate Sodium (Docusate Sodium 100 Mg Capsule) 100 mg PO BID [facility] Last Admin: 11/27/22 22:01 Dose: Not Given Ergocalciferol (Ergocalciferol (Vitamin D2) 50,000 Unit Capsule) 50,000 unit PO Q7D [facility] Famotidine (Famotidine 20 Mg Tablet) 20 mg PO BID [facility] Last Admin: 11/27/22 21:57 Dose: 20 mg Fish Oil (Fish Oil 1,000 Mg Capsule) 1,000 mg PO TID [facility] Last Admin: 11/27/22 22:01 Dose: Not Given Fluticasone Propionate (Fluticasone Propionate [place].Livan) 2 spray NS QDAY [facility] Last Admin: 11/27/22 09:24 Dose: Not Given Glucose (Dextrose 31 Gm Oral.Susp) 15 gm PO PRN PRN PRN Reason: Hypoglycemia Ampicillin Sodium/Sulbactam (Sodium 1.5 gm/ Sodium Chloride) 50 mls @ 100 mls/hr IV Q6H [facility] Last Infusion: 11/28/22 07:04 Dose: Infused AMIODARONE 360 mg/ Premix 200 mls @ 16.667 mls/hr IV .Q12H [facility]; Protocol Stop: 11/28/22 10:59 Last Admin: 11/28/22 04:58 Dose: 0.5 mg/min, 16.667 mls/hr Insulin Human Lispro (Insulin Lispro 1 Unit/0.01 Ml Unit) 0 unit SQ ACHS [facility]; Protocol Last Admin: 11/28/22 08:02 Dose: Not Given Iron Carb/Multivit/Practice Management Consultant/Folic Acid (Multivit,Ther Iron,Ca,Fa & Min 1 Tablet) 1 tab PO DAILY [facility] Last Admin: 11/27/22 09:23 Dose: Not Given Loratadine (Loratadine 10 Mg Tablet) 10 mg PO DAILY [facility] Last Admin: 11/27/22 09:23 Dose: 10 mg Metformin HCl (Metformin 500 Mg Tablet) 1,000 mg PO QDAY [facility] Last Admin: 11/27/22 09:23 Dose: 1,000 mg Metformin HCl (Metformin 500 Mg Tablet) 500 mg PO QPMCC [facility] Last Admin: 11/27/22 18:00 Dose: 500 mg Metoprolol Succinate (Metoprolol Succinate 50 Mg Tab.Xl.24h) 150 mg PO DAILY [facility] Last Admin: 11/27/22 09:23 Dose: 150 mg Metoprolol Tartrate (Metoprolol Tartrate 5 Mg/5 Ml Vial) 5 mg IV Q2HP PRN PRN Reason: Tachyarrhythmias HR>110 Last Admin: 11/27/22 06:40 Dose: 5 mg Ondansetron HCl (Ondansetron 4 Mg/2 Ml Vial) 4 mg IV Q6HP PRN PRN Reason: Nausea And Vomiting Last Admin: 11/27/22 22:17 Dose: 4 mg Zolmitriptan [Zomig] (2.5 Mg Tablet) 1 dose PO DAILYP PRN PRN Reason: Migraine Headache Potassium Chloride (Potassium Chloride 10 Meq Tablet) 10 meq PO QDAY [facility] Last Admin: 11/27/22 09:23 Dose: 10 meq Senna (Sennosides 1 Tablet) 2 tab PO HS [facility] Last Admin: 11/27/22 22:02 Dose: Not Given Sodium Chloride (0.9 % Sodium Chloride 10 Ml Syringe) 10 ml IV Q8 [facility] Last Admin: 11/28/22 06:04 Dose: 10 ml Torsemide (Torsemide 20 Mg Tablet) 20 mg PO QAM [facility] Last Admin: 11/27/22 11:00 Dose: 20 mg Triamcinolone Acetonide (Triamcinolone Cream 0.1% 15g 1 Dose Tube) 1 dose TOPICAL DAILYP PRN PRN Reason: Skin Irritation ABG Interpretation ABG results: 11/23/22 14:45 ABG Methemoglobin 0.3 L VBG pH 7.38 VBG pCO2 65.9 H* VBG pO2 31.7 VBG HCO3 38.0 H VBG Total CO2 40.0 H VBG O2 Saturation 57.6 VBG Base Excess 10 H A/P Narrative A/P Narrative: Assessment: *Acute on chronic hypercapnic and hypoxic respiratory failure: 2/2 chf -on bipap initially, now 1-2L NC *acute on chronic diastolic Congestive heart failure: -echo EF wnl, mod TR *chronic A-fib w/RVR: difficult rate control -starte amio *Encephalopathy: Secondary to above -CT head negative *UTI (Enterococcus faecium): *Obstructive sleep apnea on CPAP: *Diabetes mellitus 2 *Hypertension, but soft BP currently. suspect home BB likely initiated for rate control and not HTN *Morbid obesity: bmi 48, Lifestyle modification *Recent hospitalization for COVID requiring intubation @ [facility] *GERD: Plan: -IV Amio -increase metoprolol to 100 bid -prn ekg -cont home torsemide -Continue pulmonary toileting, BiPAP as needed, supplemental oxygen to continue and wean as tolerated -ampicillin for UTI -CMP -Strict I's and O's, daily weight, monitor uop -Monitor and replace electrolytes -Eliquis for anticoagulation -Metformin, SSI -ppx: apixaban / home H2 Full code Time Spent With Patient Time: Total time spent is greater than 50% in coordination of care (as documented) at patient's floor/unit and/or counseling patient: Subsequent: Total time with patient: 50 - 65 Minutes QUALITY VTE Deep Vein Thrombosis/Pulmonary Embolism Present on Admission: No
[2022-11-28] MEDS: LORATADINE 10 MG TABLET PO SCH (08:57)
[2022-11-28] MEDS: POTASSIUM CHLORIDE 10 MEQ TABLET PO SCH (08:57)
[2022-11-28] MEDS: TORSEMIDE 20 MG TABLET PO SCH (08:57)
[2022-11-28] MEDS: APIXABAN 5 MG TABLET PO SCH ×2 (08:57→20:48)
[2022-11-28] MEDS: CLOPIDOGREL 75 MG TABLET PO SCH (08:58)
[2022-11-28] MEDS: METOPROLOL SUCCINATE 50 MG TAB.XL.24H PO SCH (08:58)
[2022-11-28] MEDS: FAMOTIDINE 20 MG TABLET PO SCH ×2 (08:58→20:48)
[2022-11-28] MEDS: metFORMIN 500 MG TABLET PO SCH ×2 (08:58→17:29)
[2022-11-28] MEDS ORDERED: ERGOCALCIFEROL (VITAMIN D2) 50,000 UNIT CAPSULE PO SCH (09:00)
[2022-11-28] MEDS: DOCUSATE SODIUM 100 MG CAPSULE PO SCH ×2 (09:01→20:37)
[2022-11-28] MEDS: FISH OIL 1,000 MG CAPSULE PO SCH ×3 (09:07→20:37)
[2022-11-28] MEDS: FLUTICASONE PROPIONATE SPRAY.NAS NS SCH (09:07)
[2022-11-28] MEDS: carBAMazepine 200 MG TAB.SR.12H PO SCH ×2 (09:08→20:38)
[2022-11-28] MEDS: MULTIVIT,THER IRON,CA,FA & MIN 1 TABLET PO SCH (09:08)
[2022-11-28] MEDS: METOPROLOL TARTRATE 5 MG/5 ML VIAL IV PRN (10:26)
[2022-11-28] MEDS: HYDROcodone/APAP 5/325MG TABLET PO PRN ×2 (11:31→17:25)
[2022-11-28] MEDS: ACETAMINOPHEN 325 MG TABLET PO PRN (14:56)
[2022-11-28] MEDS: AMIODARONE HCL 200 MG TABLET PO SCH (18:49)
[2022-11-28] MEDS: SENNOSIDES 1 TABLET PO SCH (20:38)
[2022-11-28] MEDS: METOPROLOL TARTRATE 50 MG TABLET PO SCH (20:48)
[2022-11-28] MEDS: ATORVASTATIN 10 MG TABLET PO SCH (20:48)
[2022-11-29] MEDS: AMPICILLIN SODIUM/SULBACTAM NA 1.5 GM in 0.9 % SODIUM CHLORIDE 50 ML IV SCH ×4 (00:10→17:51)
[2022-11-29] MEDS: IPRATROPIUM/ALBUTEROL 3 ML AMPUL.NEB NEB SCH ×3 (00:48→15:33)
[2022-11-29] MEDS: 0.9 % SODIUM CHLORIDE 10 ML SYRINGE IV SCH ×3 (05:21→21:16)
[2022-11-29] MEDS: HYDROcodone/APAP 5/325MG TABLET PO PRN ×3 (07:16→21:16)
[2022-11-29] MEDS: INSULIN LISPRO 1 UNIT/0.01 ML UNIT SQ SCH ×4 (07:43→21:16)
[2022-11-29] MEDS: AMIODARONE HCL 200 MG TABLET PO SCH ×2 (07:46→16:49)
[2022-11-29] MEDS: METOPROLOL TARTRATE 50 MG TABLET PO SCH ×2 (07:46→21:15)
[2022-11-29] MEDS: APIXABAN 5 MG TABLET PO SCH ×2 (07:46→21:15)
[2022-11-29] MEDS: CLOPIDOGREL 75 MG TABLET PO SCH (07:46)
[2022-11-29] MEDS: FAMOTIDINE 20 MG TABLET PO SCH ×2 (07:46→21:15)
[2022-11-29] MEDS: metFORMIN 500 MG TABLET PO SCH ×2 (07:46→16:49)
[2022-11-29] MEDS: MULTIVIT,THER IRON,CA,FA & MIN 1 TABLET PO SCH (07:47)
[2022-11-29] MEDS: DOCUSATE SODIUM 100 MG CAPSULE PO SCH ×2 (07:47→21:15)
[2022-11-29] MEDS: carBAMazepine 200 MG TAB.SR.12H PO SCH ×2 (07:47→21:17)
[2022-11-29] MEDS: FLUTICASONE PROPIONATE SPRAY.NAS NS SCH (07:47)
[2022-11-29] MEDS: FISH OIL 1,000 MG CAPSULE PO SCH ×3 (07:47→21:16)
[2022-11-29] MEDS: POTASSIUM CHLORIDE 10 MEQ TABLET PO SCH (07:47)
[2022-11-29] MEDS: LORATADINE 10 MG TABLET PO SCH (07:52)
[2022-11-29] MEDS: TORSEMIDE 20 MG TABLET PO SCH (07:52)
--- NOTE | 2022-11-29 08:11 | Internal Med Progress Note ---
SUBJECTIVE Subjective Patient information: Note initiated : 11/29/22 at 8:09 am Service Date, if different from initiated Date: [] Patient: Sheila Joseph 67 y/o F admitted on 11/23/22 for AMS. Chief Complaint: [] Interval history: History of present illness: Patient is a 67 years old female with multiple comorbidities including DM2, HTN, CHF, JO on CPAP, morbid obesity, chronic hypoxic resp failure on 3L NC O2 presented with altered mental status, confusion, somnolence and generalized weakness. Patient was admitted to [facility] on 11/10/2022 for COVID-19, respiratory failure and was intubated for 3 to 4 days, she was discharged on 11/17/1902/28/2023 to alf facility. Daughter reports she was also diagnosed with A-fib during that admission. According to family patient was doing better for couple days however then she was noted to be more confused, increased somnolence, mental status would wax and wane. Daughter reports patient had soft voice, she was unable to clear her throat due to weakness. At the facility urine culture was done but results are not back yet. On presentation patient was somnolent and confused. Patient was tachypneic and tachycardic with heart rate in 130s-150s. VBG showed pH of 7.38, PCO2 65. WBC 11.5, sodium 148, BNP 2137, normal renal functions. UA was positive for blood, leukocyte esterase, RBCs and WBCs. Chest x-ray showed vascular congestion. Rapid COVID positive but flu negative. CT head negative for acute finding. EKG showed A-fib with RVR, ventricular rate 115 bpm. Patient was placed on BiPAP and will be admitted to PCU for acute acute respiratory failure with hypercapnia, acute encephalopathy, UTI, A-fib with RVR and CHF. 11/24. Patient was very more alert, ABG shows compensated hypercapnic respiratory failure, was still CO2 pretty high, discussed with RT and change the BiPAP setting. Will repeat ABGs later. Leukocytosis has resolved. Urine culture pending. Patient's rapid COVID was positive in ER. Patient A-fib rate controlled is not adequate, will give IV metoprolol now 11/25 patient is mentating at baseline, repeat ABG this morning and earlier showed she is in compensated hypercapnic respiratory failure with PCO2 around 61 . pH was 7.41. Patient coherent alert and oriented. Leukocytosis remains absent. Urine culture from 11/23 positive for Enterococcus faecium sensitivities pending, tmax 99.4F, will DC ceftriaxone and start Unasyn which will likely cover for UTI and for her respiratory issues. Per infectious cont rol nurse, patient will remain in precautions for now and will reevaluate tomorrow 11/26 Patient says she is feeling better. Minimal cough mostly with nebulizers. Shortness of breath She says not really noticeable at rest. Awaiting echo report. Patient on 1 to 2 L nasal cannula overnight. We will continue weaning down. 11/27 Patient heart rate not optimized. She is getting fluctuations up to 150 per nurse. BP soft. Otherwise no overnight events or new complaints. Follow-up labs for electrolytes. We will start on amnio load, transferred to back to the PCU. 11/28 Patient says she is feeling better today. Heart rate still difficult to control seems to be generally showing some improvement but still not optimized.on amio gtt still, increase bb. 11/29 Patient slept all right. Heart rate still fluctuates quite a bit but not as high as it was and have had some rates in the 80s. Continue on amiodarone and metoprolol tartrate. Review of Systems: denies headache/fever/chills/nausea/vomiting/chest or abdominal pain/diarrhea. Otherwise see above. PHYSICAL EXAM General: Alert, Awake, No acute Distress, obese Eyes/N/T: EOMI, no scleral icterus, Head/Neck: neck supple, full ROM, CV: irregularly irregular mildly tachy, No murmurs, Pulm: occ rales at bases, no wheezing, no respiratory distress Abd: soft, nontender, +BS x4 Ext: no clubbing/cyanosis, b/l LE trace edema, nontender Neuro: Alert, no focal deficits, moves all extremities, , sensations intact b/l upper/lower Psychiatric: Skin: warm/dry, normal color Constitutional Vitals: Vital Signs Temp Pulse Resp BP Pulse Ox O2 Del Method O2 Flow Rate 97.8 F 112 H 19 90/77 92 Nasal Cannula 1 11/29/22 03:01 11/29/22 07:05 11/29/22 07:05 11/29/22 06:01 11/29/22 07:19 11/29/22 07:19 11/29/22 07:19 Period Temp Pulse Resp BP Sys/Lou Pulse Ox O2 Del Method O2 Flow Rate Last 24 Hr 97.3 F-98.6 F 62-149 15-26 88-124/55-94 92-100 CPAP-Nasal Cannula 0.5-1 Intake and Output 11/28/22 11/29/22 11/29/22 19:59 03:59 11:59 Intake Total 580 250 150 Output Total 600 250 200 Balance -20 0 -50 Weight 137.892 kg Intake & Output: Intake & Output 11/28/22 11/29/22 11/29/22 19:59 03:59 11:59 Intake Total 580 250 150 Output Total 600 250 200 Balance -20 0 -50 Weight 137.892 kg Intake: IV 100 50 50 Unasyn 1.5 gm In Sodium 100 50 50 Chloride 0.9% 50 ml @ 100 mls/ hr IV Q6H [facility] Rx#:[id number] Oral 480 200 100 Output: Void Amount 400 250 200 Urine/Stool Mix 200 Other: Meal Dinner Percent of Meal Consumed 100% Feeding Ability Independent Urine Appearance Cloudy Cloudy Cloudy Sediment Sediment Urine Color Dark Yellow Dark Yellow Dark Yellow Urine Odor Strong Strong Stool Consistency Soft Loose # Bowel Movements 0 OBJ DATA Labs 11/25/22 05:59 11/28/22 05:18 Labs: Abnormal Lab Results 11/28/22 11/27/22 05:18 10:36 Carbon Dioxide 32 H 32 H Anion Gap 7.0 L Glucose 110 H 145 H Phosphorus 1.9 L GGT 42 H 42 H Lactate Dehydrogenase 232 H 260 H Triglycerides 167 H 202 H Meds: Medications Acetaminophen (Acetaminophen 325 Mg Tablet) 650 mg PO Q6HP PRN; Protocol PRN Reason: Per Pain Protocol/Fever > 101 Last Admin: 11/28/22 14:56 Dose: 650 mg Hydrocodone Bitart/Acetaminophen (Hydrocodone/Apap 5/325mg Tablet) 1 tab PO Q4HP PRN; Protocol PRN Reason: Per Pain Protocol Last Admin: 11/29/22 07:16 Dose: 1 tab Albuterol/Ipratropium (Ipratropium/Albuterol 3 Ml Ampul.Neb) 3 ml NEB Q6HRT [facility] Last Admin: 11/29/22 07:05 Dose: 3 ml Amiodarone HCl (Amiodarone Hcl 200 Mg Tablet) 400 mg PO BIDCC [facility] Last Admin: 11/29/22 07:46 Dose: 400 mg Apixaban (Apixaban 5 Mg Tablet) 5 mg PO BID [facility] Last Admin: 11/29/22 07:46 Dose: 5 mg Atorvastatin Calcium (Atorvastatin 10 Mg Tablet) 10 mg PO HS [facility] Last Admin: 11/28/22 20:48 Dose: 10 mg Carbamazepine (Carbamazepine 200 Mg Tab.Sr.12h) 700 mg PO BID [facility] Last Admin: 11/29/22 07:47 Dose: Not Given Clopidogrel Bisulfate (Clopidogrel 75 Mg Tablet) 75 mg PO QDAY [facility] Last Admin: 11/29/22 07:46 Dose: 75 mg Dextrose (Dextrose 50% 50 Ml Vial) 0 ml IV UD PRN PRN Reason: Per Sliding Scale Diagnostic Test (Pha) (Accu-Chek 1 Each Strip) 1 each FS ACHS [facility] Last Admin: 11/29/22 07:43 Dose: 1 each Docusate Sodium (Docusate Sodium 100 Mg Capsule) 100 mg PO BID [facility] Last Admin: 11/29/22 07:47 Dose: Not Given Ergocalciferol (Ergocalciferol (Vitamin D2) 50,000 Unit Capsule) 50,000 unit PO Q7D [facility] Last Admin: 11/28/22 11:17 Dose: Not Given Famotidine (Famotidine 20 Mg Tablet) 20 mg PO BID [facility] Last Admin: 11/29/22 07:46 Dose: 20 mg Fish Oil (Fish Oil 1,000 Mg Capsule) 1,000 mg PO TID [facility] Last Admin: 11/29/22 07:47 Dose: Not Given Fluticasone Propionate (Fluticasone Propionate [place].Livan) 2 spray NS QDAY [facility] Last Admin: 11/29/22 07:47 Dose: Not Given Glucose (Dextrose 31 Gm Oral.Susp) 15 gm PO PRN PRN PRN Reason: Hypoglycemia Ampicillin Sodium/Sulbactam (Sodium 1.5 gm/ Sodium Chloride) 50 mls @ 100 mls/hr IV Q6H [facility] Last Infusion: 11/29/22 06:12 Dose: Infused Insulin Human Lispro (Insulin Lispro 1 Unit/0.01 Ml Unit) 0 unit SQ [facility]; Protocol Last Admin: 11/29/22 07:43 Dose: Not Given Iron Carb/Multivit/Louann/Folic Acid (Multivit,Ther Iron,Ca,Fa & Min 1 Tablet) 1 tab PO DAILY [facility] Last Admin: 11/29/22 07:47 Dose: Not Given Loratadine (Loratadine 10 Mg Tablet) 10 mg PO DAILY [facility] Last Admin: 11/29/22 07:52 Dose: 10 mg Metformin HCl (Metformin 500 Mg Tablet) 1,000 mg PO QDAY [facility] Last Admin: 11/29/22 07:46 Dose: 1,000 mg Metformin HCl (Metformin 500 Mg Tablet) 500 mg PO QPMCC [facility] Last Admin: 11/28/22 17:29 Dose: 500 mg Metoprolol Tartrate (Metoprolol Tartrate 5 Mg/5 Ml Vial) 5 mg IV Q2HP PRN PRN Reason: Tachyarrhythmias HR>110 Last Admin: 11/28/22 10:26 Dose: 5 mg Metoprolol Tartrate (Metoprolol Tartrate 50 Mg Tablet) 100 mg PO BID [facility] Last Admin: 11/29/22 07:46 Dose: 100 mg Ondansetron HCl (Ondansetron 4 Mg/2 Ml Vial) 4 mg IV Q6HP PRN PRN Reason: Nausea And Vomiting Last Admin: 11/27/22 22:17 Dose: 4 mg Zolmitriptan [Zomig] (2.5 Mg Tablet) 1 dose PO DAILYP PRN PRN Reason: Migraine Headache Potassium Chloride (Potassium Chloride 10 Meq Tablet) 10 meq PO QDAY [facility] Last Admin: 11/29/22 07:47 Dose: 10 meq Senna (Sennosides 1 Tablet) 2 tab PO HS [facility] Last Admin: 11/28/22 20:38 Dose: Not Given Sodium Chloride (0.9 % Sodium Chloride 10 Ml Syringe) 10 ml IV Q8 [facility] Last Admin: 11/29/22 05:21 Dose: 10 ml Torsemide (Torsemide 20 Mg Tablet) 20 mg PO QAM [facility] Last Admin: 11/29/22 07:52 Dose: 20 mg Triamcinolone Acetonide (Triamcinolone Cream 0.1% 15g 1 Dose Tube) 1 dose TOPICAL DAILYP PRN PRN Reason: Skin Irritation ABG Interpretation ABG results: 11/23/22 14:45 ABG Methemoglobin 0.3 L VBG pH 7.38 VBG pCO2 65.9 H* VBG pO2 31.7 VBG HCO3 38.0 H VBG Total CO2 40.0 H VBG O2 Saturation 57.6 VBG Base Excess 10 H A/P Narrative A/P Narrative: Assessment: *Acute on chronic hypercapnic and hypoxic respiratory failure: 2/2 chf -on bipap initially, now 1L NC *acute on chronic diastolic Congestive heart failure: -echo EF wnl, mod TR *chronic A-fib w/RVR: difficult rate control -started amio *Encephalopathy: Secondary to above -CT head negative *UTI (Enterococcus faecium): *Obstructive sleep apnea on CPAP: *Diabetes mellitus 2 *Morbid obesity: bmi 48, Lifestyle modification *Recent hospitalization for COVID requiring intubation @ [facility] *GERD: Plan: -IV Amio to PO -increased metoprolol to 100 bid -prn ekg -cont home torsemide -Continue pulmonary toileting, BiPAP as needed, supplemental oxygen to continue and wean as tolerated -ampicillin for UTI -CMP -Strict I's and O's, daily weight, monitor uop -Monitor and replace electrolytes -Eliquis for anticoagulation -Metformin, SSI -f/u with Dr. Lamas -ppx: apixaban / home H2 Full code Time Spent With Patient Time: Total time spent is greater than 50% in coordination of care (as documented) at patient's floor/unit and/or counseling patient: Subsequent: Total time with patient: 50 - 65 Minutes QUALITY VTE Deep Vein Thrombosis/Pulmonary Embolism Present on Admission: No
[2022-11-29] MEDS: ACETAMINOPHEN 325 MG TABLET PO PRN ×2 (11:22→16:49)
[2022-11-29] MEDS ORDERED: IPRATROPIUM/ALBUTEROL 3 ML AMPUL.NEB NEB PRN (13:16)
[2022-11-29] MEDS: METOPROLOL TARTRATE 5 MG/5 ML VIAL IV PRN (19:37)
[2022-11-29] MEDS: ATORVASTATIN 10 MG TABLET PO SCH (21:15)
[2022-11-29] MEDS: SENNOSIDES 1 TABLET PO SCH (21:17)
[2022-11-30] MEDS: 0.9 % SODIUM CHLORIDE 10 ML SYRINGE IV SCH (05:51)
[2022-11-30] MEDS: INSULIN LISPRO 1 UNIT/0.01 ML UNIT SQ SCH ×2 (07:23→11:26)
[2022-11-30] MEDS: DOCUSATE SODIUM 100 MG CAPSULE PO SCH (08:05)
[2022-11-30] MEDS: FISH OIL 1,000 MG CAPSULE PO SCH (08:05)
[2022-11-30] MEDS: FLUTICASONE PROPIONATE SPRAY.NAS NS SCH (08:06)
[2022-11-30] MEDS: MULTIVIT,THER IRON,CA,FA & MIN 1 TABLET PO SCH (08:11)
[2022-11-30] MEDS: carBAMazepine 200 MG TAB.SR.12H PO SCH (08:13)
[2022-11-30] MEDS: AMIODARONE HCL 200 MG TABLET PO SCH (08:21)
[2022-11-30] MEDS: METOPROLOL TARTRATE 50 MG TABLET PO SCH (08:21)
[2022-11-30] MEDS: metFORMIN 500 MG TABLET PO SCH (08:21)
[2022-11-30] MEDS: CLOPIDOGREL 75 MG TABLET PO SCH (08:21)
[2022-11-30] MEDS: TORSEMIDE 20 MG TABLET PO SCH (08:21)
[2022-11-30] MEDS: APIXABAN 5 MG TABLET PO SCH (08:21)
[2022-11-30] MEDS: POTASSIUM CHLORIDE 10 MEQ TABLET PO SCH (08:21)
[2022-11-30] MEDS: FAMOTIDINE 20 MG TABLET PO SCH (08:22)
[2022-11-30] MEDS: LORATADINE 10 MG TABLET PO SCH (08:22)
[2022-11-30] MEDS: HYDROcodone/APAP 5/325MG TABLET PO PRN (09:39)
--- NOTE | 2022-11-30 12:28 | EKG ---
[facility] Test Date: 2022-11-27 Pat Name: Sheila Kellogg [facility] Room: 108 Gender: Female Manager Social Responsibility: : [id number] Requested By: Lupillo Mendoza Order Number: [id number] Reading MD: Lobo Navarro Measurements Intervals [place] Rate: 134 P: GA: QRS: 227 QRSD: 79 T: 66 QT: 299 QTc: 448 Interpretive Statements Atrial fibrillation Markedly posterior QRS axis Anteroseptal infarct, old Electronically Signed On 11-30-2022 12:27:47 PDT by Lobo Navarro /[id number]
== END 2022-11-30 12:58 | DRG 189 ==
LOC: ED 13:13 → ICU 21:37 → MEDSUR 11-26 15:00 → ICU 11-27 10:43
PROVIDERS: ADMIT Internal Medicine; ATTEND Internal Medicine